=== PATIENT | female | born 1935 | race Caucasian/White ===

== ENCOUNTER → 2016-08-13 | Outpatient (CLI) | payer MEDICARE, MEDICAID ==
[~2016-08-13] MED LIST: ASPI-482 PO; CRESTOR5 MG PO; EXEN10PE SQ; INSU100I13 SQ; LEVO88TA4 PO; NEBI5TAB2 PO; NIFE60TA16 PO
--- NOTE | 2016-08-13 14:18 | RAD ---
Indication abnormal liver function tests. Axial images through the abdomen and pelvis were obtained. The examination is limited. No IV or gastrointestinal contrast was administered. No previous CT imaging of the abdomen or pelvis is available. The lung bases are unremarkable. The liver and spleen appear unremarkable. The gallbladder appears grossly normal. No pancreatic mass is seen. There are no inflammatory changes surrounding the pancreas. There are few mesenteric lymph nodes seen in the upper abdomen. These are probably incidental. Definite pathologic central or retroperitoneal adenopathy is not seen. The adrenal glands appear normal. There are bilateral renal cysts. An acute finding in the abdomen is not apparent. No acute or significant finding is seen in the pelvis. There are degenerative changes seen throughout the lumbar spine. IMPRESSION: No acute or significant finding seen in the abdomen or pelvis PQRS Compliance Statement: One or more of the following individualized dose reduction techniques were utilized for this examination: 1. Automated exposure control 2. Adjustment of the mA and/or kV according to patient size 3. Use of iterative reconstruction technique
== END | disposition home or self-care (01) ==
LOC: CT 13:44
PROVIDERS: ATTEND Family Medicine
DX: R74.8 Abnormal levels of other serum enzymes (principal)
CPT/HCPCS: 74176

== ENCOUNTER 2016-10-13 19:36 | Emergency (ER) | payer MEDICARE, MEDICAID ==
[~2016-10-13] VITALS: Ht 157.5 cm; Wt 78.5 kg
[~2016-10-13 19:36] MED LIST changes: -EXEN10PE SQ; +EXEN10PE3 SQ
[2016-10-13] MEDS ORDERED: predniSONE 10 MG TABLET PO ONE (20:45)
[2016-10-13] MEDS ORDERED: diphenhydrAMINE 50 MG/ML VIAL IM ONE (20:45)
[2016-10-13 20:51] VITALS: BP 166/82
[2016-10-13 21:12] LABS: BASO # 0.1 x10^3/uL (0.0-0.2); BASO % 1 % (0-3); EOS # 0.8 x10^3/uL (0.0-0.7); EOS % 8 % (0-3); HEMATOCRIT 37.5 % (36.0-47.0); HEMOGLOBIN 12.9 g/dL (12.0-15.5); LYMPH # 1.7 x10^3/uL (1.0-4.8); LYMPH % 18 % (24-48); MEAN CORPUSCULAR HEMOGLOBIN 29 pg (25-35); MEAN CORPUSCULAR HGB CONC 34 g/dL (31-37); MEAN CORPUSCULAR VOLUME 84 fL (79-100); MONO # 0.8 x10^3/uL (0.0-1.1); MONO % 9 % (0-9); NEUT # 6.1 x10^3uL (1.8-7.7); NEUT % 65 % (31-73); PLATELET COUNT 175 x10^3/uL (140-400); RED BLOOD COUNT 4.46 x10^6/uL (3.50-5.40); RED CELL DISTRIBUTION WIDTH 14.6 % (11.5-14.5); WHITE BLOOD COUNT 9.5 x10^3/uL (4.0-11.0)
[2016-10-13 21:17] LABS: GFR 23.9; POTASSIUM 3.4 mmol/L (3.5-5.1)
[2016-10-13] MEDS ORDERED: PRED50TA PO (21:53)
--- NOTE | 2016-10-13 21:53 | PHYS DOC ---
Past History Past Medical History: Constipation, Diabetes, Hypertension, Renal Disease Past Surgical History: Tubal ligation, Other Smoking: Non-smoker Alcohol Use: Occasionally Drug Use: None Adult General Chief Complaint Chief Complaint: ITCHING HPI HPI Patient is a 80 year old female who presents with rash & itching. The patient reports 12 day history of symptoms which began after undergoing radiofrequency ablation. She denies any new medications given at that time. She denies any new exposures to soaps, lotions, detergents, no new medications or foods. She denies face/tongue/lip swelling. She denies shortness of breath, vomiting, diarrhea. She took PO benadryl today without relief of symptoms. Review of Systems Review of Systems Constitutional: Denies fever or chills HENT: Denies nasal congestion or sore throat Respiratory: Denies cough or shortness of breath Cardiovascular: Denies chest pain GI: Denies abdominal pain, nausea, vomiting, or diarrhea Musculoskeletal: Denies back pain or joint pain Integument:Reports itching & rash. Neurologic: Denies headache Allergies Allergies Allergies Coded Allergies Type Severity Reaction Last Updated Verified codeine Allergy Intermediate nausea and vomiting 11/12/13 Yes Physical Exam Physical Exam Constitutional: obese, no acute distress, non-toxic appearance. HENT: Normocephalic, atraumatic, bilateral external ears normal, oropharynx moist, nose normal. no tongue/lip swelling, airway patent. Eyes: conjunctiva normal, no discharge. Neck: supple, no stridor. Cardiovascular: RRR, no murmurs, no edema. Lungs & Thorax: LCTAB, no wheezing, no respiratory distress. Abdomen: soft, nontender, nondistended. Skin: scattered erythematous macular rash to extremities & torso, numerous excoriations, no vesicles or urticaria, no cellulitis Back: No tenderness. Extremities: No tenderness, no edema. Neurologic: Alert and oriented X 3 Psychologic: Affect normal, judgement normal, mood normal. Current Patient Data Vital Signs Vital Signs Date Time Temp Pulse Resp B/P (MAP) Pulse Ox O2 Delivery O2 Flow Rate FiO2 10/13/16 20:51 98.0 88 16 98 Lab Results Laboratory Tests Test 10/13/16 20:59 White Blood Count 9.5 x10^3/uL (4.0-11.0) Red Blood Count 4.46 x10^6/uL (3.50-5.40) Hemoglobin 12.9 g/dL (12.0-15.5) Hematocrit 37.5 % (36.0-47.0) Mean Corpuscular Volume 84 fL (79-100) Mean Corpuscular Hemoglobin 29 pg (25-35) Mean Corpuscular Hemoglobin Concent 34 g/dL (31-37) Red Cell Distribution Width 14.6 % (11.5-14.5) H Platelet Count 175 x10^3/uL (140-400) Neutrophils (%) (Auto) 65 % (31-73) Lymphocytes (%) (Auto) 18 % (24-48) L Monocytes (%) (Auto) 9 % (0-9) Eosinophils (%) (Auto) 8 % (0-3) H Basophils (%) (Auto) 1 % (0-3) Neutrophils # (Auto) 6.1 x10^3uL (1.8-7.7) Lymphocytes # (Auto) 1.7 x10^3/uL (1.0-4.8) Monocytes # (Auto) 0.8 x10^3/uL (0.0-1.1) Eosinophils # (Auto) 0.8 x10^3/uL (0.0-0.7) H Basophils # (Auto) 0.1 x10^3/uL (0.0-0.2) Sodium Level 134 mmol/L (136-145) L Potassium Level 3.4 mmol/L (3.5-5.1) L Chloride Level 98 mmol/L (98-107) Carbon Dioxide Level 27 mmol/L (21-32) Anion Gap 9 (6-14) Blood Urea Nitrogen 43 mg/dL (7-20) H Creatinine 2.0 mg/dL (0.6-1.0) H Estimated GFR (Cockcroft-Gault) 23.9 Glucose Level 253 mg/dL (70-99) H Calcium Level 9.0 mg/dL (8.5-10.1) EKG EKG [] Radiology/Procedures Radiology/Procedures [] Course & Med Decision Making Course & Med Decision Making Pertinent Labs and Imaging studies reviewed. (See chart for details) The patient presents with rash & itching. Cause is not obvious. Labs showed hyperglycemia & Cr 2.0. She received benadryl & prednisone here, symptoms improved. She was in stable condition. Recommend PO hydration, continue benadryl & gave prescription for prednisone burst. Follow up with primary care physician in 2-3 days. Come back for severe shortness of breath, face/tongue/ lip swelling, any otherwise worsening condition. Discharged home in stable condition. [] Dragon Disclaimer Dragon Disclaimer This chart was dictated in whole or in part using Voice Recognition software in a busy, high-work load, and often noisy Emergency Department environment. It may contain unintended and wholly unrecognized errors or omissions. Departure Departure: Impression: Primary Impression: Rash Disposition: HOME, SELF-CARE Condition: STABLE Patient Instructions: Rash, [id number] Additional Instructions: You were seen in the emergency department today for rash. We are not able to tell you the specific cause of the rash. Please drink fluids for mild dehydration, take Benadryl every 6 hours as needed for rash and itching, take prednisone for the next 5 days. Be aware that your blood glucose was elevated today and you may continue to have high blood sugars due to taking prednisone. Be sure to check regularly at home and take medications as prescribed. Follow- up with primary care physician within 2-3 days. Return to the emergency department for face/tongue/lip swelling, severe shortness of breath, any otherwise worsening condition. Scripts Prednisone (PREDNISONE) 50 Mg Tablet 1 TAB PO DAILY, #5 TAB Prov: MEGAN SALTER MD 10/13/16 MEGAN SALTER MD October 13, 2016 21:53
[2016-10-13] MEDS ORDERED: POTASSIUM CHLORIDE 20 MEQ/15 ML ORAL LIQUID. PO ONE (22:00)
[2016-10-13] MEDS ORDERED: POTASSIUM CHLORIDE 20 MEQ/15 ML ORAL LIQUID. ONE (22:01)
== END 2016-10-13 22:14 | disposition home or self-care (01) ==
LOC: ER 19:36
DX: R21 Rash and other nonspecific skin eruption (principal); L29.9 Pruritus, unspecified; I12.9 Hypertensive chronic kidney disease with stage 1 through stage 4 chronic kidney disease, or unspecified chronic kidney disease; E11.22 Type 2 diabetes mellitus with diabetic chronic kidney disease; N18.9 Chronic kidney disease, unspecified; Z88.6 Allergy status to analgesic agent
CPT/HCPCS: 36415; 80048; 85027; 96372; 99284; J1200; J7512

== ENCOUNTER 2016-10-20 09:25 | Emergency (ER) | payer MEDICARE, MEDICAID ==
[~2016-10-20] VITALS: Ht 157.5 cm; Wt 78.5 kg
[~2016-10-20 09:25] MED LIST changes: +PRED50TA PO
[2016-10-20] MEDS ORDERED: IV NORMAL SALINE 1,000ML 500 ML IV SCH (10:15)
--- NOTE | 2016-10-20 10:29 | RAD ---
EXAM: Chest, single view. HISTORY: With. COMPARISON: 09/04/2013. FINDINGS: A frontal view of the chest is obtained. There is no infiltrate, effusion or pneumothorax. The heart is normal in size. There is a calcified granuloma overlying the right upper lobe. There are a few additional smaller granulomas. 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 There is stable focal opacity overlying the right infrahilar region likely due to overlying osseous and pulmonary vessel shadows. IMPRESSION: No acute pulmonary finding.
--- NOTE | 2016-10-20 10:41 | PHYS DOC ---
General Chief Complaint: BLOOD SUGAR PROBLEM Stated Complaint: DIABETIC Time Seen by MD: 09:26 Source: patient, EMS Exam Limitations: no limitations Problems: History of Present Illness Initial Comments Pt is 80/F to ED via EMS for glucose issues. Pt went to bed last night feeling well, has h/o DM, awoke 0400 today feeling like her glucose was low as she felt cold/clammy/sweaty. Ate cereal/milk, called EMS who reports pt glucose 72. Pt was still feeling cold and weak, EMS aware of pt cardiac history brought pt for eval. Denies change in diet or insulin regimen (lantus hs). ED VS: afeb, 70, 11, 168/90, 98% RA No cp/sob/measured fever/n/v/d/arm or neck sx. On ED arrival pt states she's feeling much better. Pt is vague historian. Pt seen [facility] ED 5 days ago for rash which has resolved, took last prednisone yesterday. follows with Tona Dahl Timing/Duration: 4-6 hours Severity: moderate Modifying Factors: improves with eating, worse with movement, improves with rest Associated Symptoms: diaphoresis, malaise, other Allergies: Coded Allergies: codeine (Verified Allergy, Intermediate, nausea and vomiting, 11/12/13) Past Medical History Medical History: diabetes, heart disease, high cholesterol, hypertension, renal disease, other (hypothyroid, PVD, GI Bleed) Surgical History: coronary bypass surgery (5 vessel in 2004 follows with Tona Dahl), other (TL, L carotid endarterectomy, back surgery) Family History Significant Family History: no pertinent family hx Social History Smoker: non-smoker, quit greater than 1 year (1979) Alcohol: occasionally Drugs: none Review of Systems Constitutional: see HPI Respiratory: denies cough, denies shortness of breath, denies wheezing Cardiovascular: denies chest pain, denies palpitations, denies syncope Gastrointestinal: denies abdominal pain, denies diarrhea, denies nausea, denies vomiting Genitourinary: denies dysuria, frequency, denies hematuria Musculoskeletal: denies back pain, denies joint swelling, denies neck pain Psychiatric/Neurological: see HPI, denies headache Physical Exam General Appearance: WD/WN, mild distress Eyes: bilateral eye normal inspection, bilateral eye PERRL, bilateral eye EOMI Ear, Nose, Throat: hearing grossly normal, normal ENT inspection, normal pharynx Neck: non-tender, supple Respiratory: normal breath sounds, no respiratory distress Cardiovascular: normal peripheral pulses, regular rate, rhythm Gastrointestinal: non tender, soft Back: no CVA tenderness, no vertebral tenderness Extremities: non-tender, normal inspection Neurologic/Psychiatric: wellness spa manager II-XII nml as tested, no motor/sensory deficits, alert, oriented x 3 Skin: diaphoresis, pallor Orders, Labs, Meds EKG: interp by me, NSR 70 bpm, diffuse T flattening no STEMI. (computer read as afib) PATIENT: LENORA RENDON ACCOUNT: [id number] : 1935 LOCATION: ER AGE: 80 SEX: F EXAM STATUS: REG ER ORD. PHYSICIAN: GALDINO POOLE DO REASON: weak PROCEDURE: PORTABLE CHEST 1V EXAM: Chest, single view. HISTORY: With. COMPARISON: 09/04/2013. FINDINGS: A frontal view of the chest is obtained. There is no infiltrate, effusion or pneumothorax. The heart is normal in size. There is a calcified granuloma overlying the right upper lobe. There are a few additional smaller granulomas. 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 There is stable focal opacity overlying the right infrahilar region likely due to overlying osseous and pulmonary vessel shadows. IMPRESSION: No acute pulmonary finding. DICTATED AND SIGNED BY: PERCY MUNROE MD DATE: 10/20/16 1025 CC: ALESHIA RODRIGUEZ MD; GALDINO POOLE DO ~ 1139: Time in dept 2h 14 min. Labs remain pending, pt will have prolonged ED course due to lab delay. 1145: Critical labs called, trop I 0.092, K+ 2.8 (40meq PO in ED) pt webmethods consultant paged. Other labs pending. Pt denies change in symptoms. 1215: Pt discussed with Dr Thompson Cardiology data conversion analyst. Recommended admit to hospitalist [facility], NTP, recheck Trop I 2 hours and if elevated heparinize. Cardio aware of GI bleed 2013. Hospitalist service paged. 1241: Dr Florez accepts pt to cardiac bed at [facility]. IMPRESSIONS: CAD with elevated troponin Hypokalemia Departure Time of Disposition: 12:03 Disposition: 05 XFER OTHER Diagnosis: CAD with elevated Trop I, hypokalemia Condition: STABLE Additional Instructions: EMS transfer to [facility] cardiac bed Dr Florez is accepting. GALDINO POOLE DO October 20, 2016 10:41
[2016-10-20 10:48] LABS: BASO # 0.1 x10^3/uL (0.0-0.2); BASO % 1 % (0-3); EOS # 0.1 x10^3/uL (0.0-0.7); EOS % 1 % (0-3); HEMATOCRIT 43.8 % (36.0-47.0); HEMOGLOBIN 15.2 g/dL (12.0-15.5); LYMPH # 1.5 x10^3/uL (1.0-4.8); LYMPH % 12 % (24-48); MEAN CORPUSCULAR HEMOGLOBIN 29 pg (25-35); MEAN CORPUSCULAR HGB CONC 35 g/dL (31-37); MEAN CORPUSCULAR VOLUME 83 fL (79-100); MONO % 8 % (0-9); NEUT # 10.3 x10^3uL (1.8-7.7); NEUT % 79 % (31-73); PLATELET COUNT 197 x10^3/uL (140-400); RED BLOOD COUNT 5.28 x10^6/uL (3.50-5.40); RED CELL DISTRIBUTION WIDTH 14.8 % (11.5-14.5); WHITE BLOOD COUNT 12.9 x10^3/uL (4.0-11.0)
[2016-10-20 11:42] LABS: ALBUMIN 2.9 g/dL (3.4-5.0); ALBUMIN/GLOBULIN RATIO 0.7 (1.0-1.7); ALK PHOS 89 U/L (46-116); ALT (SGPT) 98 U/L (14-59); ANION GAP 10 (6-14); AST (SGOT) 71 U/L (15-37); BLOOD UREA NITROGEN 42 mg/dL (7-20); BUN/CREATININE RATIO 23 (6-20); CALCIUM 9.6 mg/dL (8.5-10.1); CARBON DIOXIDE 28 mmol/L (21-32); CHLORIDE 99 mmol/L (98-107); CREATINE KINASE 95 U/L (26-192); CREATININE 1.8 mg/dL (0.6-1.0); GFR 26.9; GLUCOSE 209 mg/dL (70-99); LIPASE 454 U/L (73-393); SODIUM 137 mmol/L (136-145); TOTAL BILIRUBIN 0.4 mg/dL (0.2-1.0); TOTAL PROTEIN 7.3 g/dL (6.4-8.2)
[2016-10-20 11:45] LABS: C REACTIVE PROTEIN < 0.5 mg/L (0-3.3); POTASSIUM 2.8 mmol/L (3.5-5.1)
[2016-10-20 11:51] LABS: % BANDS 3 % (0-9); % EOS 1 % (0-5); % LYMPHS 15 % (24-48); % MONOS 8 % (0-10); % SEGS 73 % (35-66); PLT ESTIMATE ADEQUATE (ADEQUATE)
[2016-10-20 11:53] LABS: TOXIC GRANULATION SLIGHT; TOXIC VACUOLATION SLIGHT
--- NOTE | 2016-10-20 12:08 | EKG ---
[address] [address] Test Date: 2016-10-20 Test Time: 10:58:29 Pat Name: LENORA RENDON Department: Room: Gender: F Bi Manager: : 1935 Requested By: GALDINO POOLE Order Number: [id number] Reading MD: Measurements Intervals [place] Rate: 70 P: [place]: QRS: -20 QRSD: 100 T: 64 QT: 420 QTc: 457 Interpretive Statements ATRIAL FIBRILLATION LEFTWARD AXIS NON SPECIFIC ST DEPRESSION RI6.01 Unconfirmed report No previous ECG available for comparison
[2016-10-20] MEDS ORDERED: POTASSIUM CHLORIDE 20 MEQ/15 ML ORAL LIQUID. PO ONE (12:15)
[2016-10-20 12:18] LABS: BILIRUBIN,URINE NEG (NEG); CLARITY,URINE CLEAR; COLOR,URINE YELLOW; GLUCOSE,URINE NEG (NEG)
[2016-10-20 12:19] LABS: BACTERIA,URINE FEW /HPF (0-FEW); GRANULAR CASTS,URINE OCC /HPF; HYALINE CASTS, URINE OCC /HPF; NITRITE,URINE NEG (NEG); SQUAMOUS EPITHELIAL CELL,UR FEW /LPF; UROBILINOGEN,URINE 0.2 mg/dL (0.2 mg/dL)
--- NOTE | 2016-10-20 12:22 | ACF ---
Admission Criteria Forms HYPONATREMIA; HYPERNATREMIA; HYPOKALEMIA; HYPERKALEMIA; HYPOCALCEMIA; HYPERCALCEMIA Clinical Indications for Inpatient Care (Place 'X' for any and all applicable criteria): Ongoing inpatient care may be indicated for ANY ONE of the following [G](1)(2)(3 )(5): [ ]I. Hyponatremia with ANY ONE of the following: [ ]a) Sodium less than 130 mEq/L (mmol/L) (new) (6)(22) [ ]b) Sodium less than 135 mEq/L (mmol/L) with ANY ONE of the following: [ ]i) Severe medical etiology requiring inpatient management (eg, heart failure, hypovolemia) [ ]ii) Altered mental status [ ]iii) Seizures [ ]II. Hypernatremia with ANY ONE of the following: [ ]a) Sodium greater than 155 mEq/L (mmol/L) [ ]b) Sodium greater than 150 mEq/L (mmol/L) with ANY ONE of the following: [ ] i) Altered mental status [ ]ii) Seizures [ ]iii) Severe medical etiology (eg, hypovolemia, diabetes insipidus) [ ]iv) Severe weakness [ ]v) Severe medical etiology (eg, hemolysis, infection, drug overdose) [X]III. Hypokalemia with ANY ONE of the following: [ ]a) Potassium less than 2.5 mEq/L (mmol/L) despite outpatient and emergency treatment [X]b) Potassium less than 3.0 mEq/L (mmol/L) with ANY ONE of the following: [ ]i) Weakness [ ]ii) Cardiac abnormality (eg, arrhythmia, conduction disturbance) [ ]iii) Cardiac ischemia [ ]iv) Ileus [ ]v) Ongoing medical cause requiring inpatient management. ( e.g., acute renal wasting, SIADH) [X]vi) Other severe symptoms [ ] IV. Hyperkalemia with ANY ONE of the following: [ ]a) Potassium greater than 6.5 mEq/L (mmol/L) [ ]b) Potassium greater than 5 mEq/L (mmol/L) with ANY ONE of the following: [ ]i) Severe ECG findings [H] [ ]ii) Acute worsening of renal failure (creatinine greater than 2.5 mg/dL (221 micromoles/L) or significant elevation for age and size) [ ] V. Hypocalcemia with ANY ONE of the following: [ ]a) Calcium less than 7 mg/dL (1.75 mmol/L) despite outpatient and emergency treatment(19) [ ]b) Calcium less than 8 mg/dL (2 mmol/L) with significant symptoms or findings; examples include: [ ]i) Cardiac abnormality (eg, arrhythmia or conduction disturbance) [ ]ii) Altered mental status [ ]iii) Seizures [ ]iv) Breathing difficulty [ ]v) Muscle spasms [ ]. Hypercalcemia with ANY ONE of the following: [ ]a) Calcium greater than 14 mg/dL (3.5 mmol/L) [ ]b) Calcium greater than 12 mg/dL (3 mmol/L) with ANY ONE of the following: [ ]i) Significant dehydration or hypovolemia as indicated by ANY ONE of the following(2): [ ]1. Clinically significant dehydration as indicated by ANY ONE of the following: [ ]A. Acute loss of weight from baseline (5% of body weight in adults, 9% in pediatric patients) [ ]B. Hemodynamic instability [ ]C. Acute renal failure [ ]D. Serum sodium greater than 150 mEq/L (mmol/L) [ ]2) Dehydration that is persistent indicated by ALL of the following: [ ]A. Oral rehydration therapy not tolerated or insufficient to adequately correct dehydration [ ]B. Appropriate intravenous treatment (eg, fluids ) does not readily correct dehydration ie, after 12 to 24 hours of treatment) [ ]ii) Significant symptoms or findings; examples include: [ ]1) Altered mental status [ ]2) Cardiac abnormality (eg, arrhythmia, conduction disturbance) [ ]3) Cardiac abnormality (eg, arrhythmia, conduction disturbance) The original [facility] content created by [email or web address] has been revised. The portions of the content which have been revised are identified through the use of italic text or in bold, and [email or web address] has neither reviewed nor approved the modified material. All other unmodified content is copyright [email or web address] Please see references footnoted in the original [facility] edition 2016 Admission Criteria Met?: Yes RAGHAV YORK October 20, 2016 12:22
[2016-10-20] MEDS ORDERED: ACETAMINOPHEN 325 MG TABLET PO ONE (12:45)
[2016-10-20] MEDS ORDERED: NITROGLYCERIN OINT 1 GM PACKET. TP ONE (12:45)
[2016-10-20 14:00] VITALS: BP 154/74
== END 2016-10-20 14:00 | disposition short-term general hospital (02) ==
LOC: ER 09:25
DX: I25.10 Atherosclerotic heart disease of native coronary artery without angina pectoris (principal); E87.6 Hypokalemia; E03.9 Hypothyroidism, unspecified; E78.00 Pure hypercholesterolemia, unspecified; I73.9 Peripheral vascular disease, unspecified; I13.10 Hypertensive heart and chronic kidney disease without heart failure, with stage 1 through stage 4 chronic kidney disease, or unspecified chronic kidney disease; E11.22 Type 2 diabetes mellitus with diabetic chronic kidney disease; R79.89 Other specified abnormal findings of blood chemistry; Z87.19 Personal history of other diseases of the digestive system; Z87.891 Personal history of nicotine dependence; Z95.1 Presence of aortocoronary bypass graft; Z88.6 Allergy status to analgesic agent
CPT/HCPCS: 36415; 71010; 80053; 81001; 82550; 83690; 83880; 84484; 85007; 85027; 85379; 86140; 87086; 93005; 96360; 96361; 99285-25; J7030

== ENCOUNTER 2016-11-26 06:44 | Emergency (ER) | payer MEDICARE, MEDICAID ==
[~2016-11-26] VITALS: Ht 160 cm; Wt 78.5 kg
[2016-11-26 07:42] LABS: BASO % 1 % (0-3); EOS # 0.2 x10^3/uL (0.0-0.7); EOS % 3 % (0-3); HEMATOCRIT 36.2 % (36.0-47.0); HEMOGLOBIN 12.2 g/dL (12.0-15.5); LYMPH # 1.5 x10^3/uL (1.0-4.8); LYMPH % 24 % (24-48); MEAN CORPUSCULAR HEMOGLOBIN 29 pg (25-35); MEAN CORPUSCULAR HGB CONC 34 g/dL (31-37); MEAN CORPUSCULAR VOLUME 87 fL (79-100); MONO # 0.6 x10^3/uL (0.0-1.1); MONO % 9 % (0-9); NEUT # 3.9 x10^3uL (1.8-7.7); NEUT % 63 % (31-73); PLATELET COUNT 161 x10^3/uL (140-400); RED BLOOD COUNT 4.15 x10^6/uL (3.50-5.40); RED CELL DISTRIBUTION WIDTH 14.8 % (11.5-14.5); WHITE BLOOD COUNT 6.2 x10^3/uL (4.0-11.0)
--- NOTE | 2016-11-26 07:44 | PHYS DOC ---
Past History Past Medical History: CAD, Diabetes, High Cholesterol, Hypertension Past Surgical History: Coronary Bypass Surgery, Other Smoking: Non-smoker Alcohol Use: None Drug Use: None Adult General Chief Complaint Chief Complaint: BACK PAIN OR INJURY HPI HPI Patient is a 80 year old female who presents with back pain. The patient reports several month history of progressively worsening right lower back pain radiating to right leg. She states she did have a fall about a month ago but already had pain before the fall. She states pain is aching/stabbing to lower spine, right lower back & flank, radiating to buttock & hip & down her leg. Worse with movement. She denies fevers/chills, nausea/vomiting, abdominal pain , diarrhea/constipation, hematochezia/melena, dysuria/hematuria, lower extremity numbness/weakness, saddle anesthesia, bowel/bladder incontinence/ retention. She has chronic LLE swelling s/p CABG. She took tylenol yesterday without relief of pain. She doesn't like to take medication. She has previous back surgery in 1984 for herniated disc. She has not seen her physician, Dr. Rodriguez, for this problem previously. Review of Systems Review of Systems Constitutional: Denies fever or chills Eyes: Denies change in visual acuity HENT: Denies nasal congestion or sore throat Respiratory: Denies cough or shortness of breath Cardiovascular: Denies chest pain or edema GI: Denies abdominal pain, nausea, vomiting, bloody stools or diarrhea : Denies dysuria or hematuria Musculoskeletal: Reports back pain, denies joint pain Integument: Denies rash or skin lesions Neurologic: Denies headache, focal weakness or sensory changes Allergies Allergies Allergies Coded Allergies Type Severity Reaction Last Updated Verified codeine Allergy Intermediate nausea and vomiting 11/12/13 Yes Physical Exam Physical Exam Constitutional: Well developed, well nourished, no acute distress, non-toxic appearance. HENT: Normocephalic, atraumatic, bilateral external ears normal, oropharynx moist, nose normal. Eyes: conjunctiva normal, no discharge. Neck: supple, no stridor. Cardiovascular: RRR, no murmurs, LLE edema as below. Lungs & Thorax: LCTAB, no wheezing, no respiratory distress. Abdomen: soft, nontender, nondistended. no masses or pulsatile masses. Skin: Warm, dry, no erythema, no rash. Back: generalized lumbar spine tenderness without step offs, right flank & right lower back tenderness, right buttock tenderness. Extremities: symmetric strength/sensation to LE, distal pulses palpable, 3+ pitting edema to LLE. Neurologic: Alert and oriented X 3, no focal deficits noted. Psychologic: Affect normal, judgement normal, mood normal. Current Patient Data Vital Signs Vital Signs Date Time Temp Pulse Resp B/P (MAP) Pulse Ox O2 Delivery O2 Flow Rate FiO2 11/26/16 07:00 97.4 74 18 99 Room Air EKG EKG [] Radiology/Procedures Radiology/Procedures PROCEDURE: CT LUMBAR SPINE WO CONTRAST CT of the lumbar spine without contrast, 11/26/2016: History: Back and right flank pain Noncontrast scans were obtained with multiplanar reconstructions produced. There is a mild left convexity lumbar scoliosis. The lumbar vertebral heights are well-maintained. There are moderate scattered spurs and anterior disc bulges. There is considerable disc space narrowing at L2-3 and L5-S1. A small hemangioma is noted in the T12 vertebral body. At L1-2 there is moderate posterior disc bulging. There is mild marginal spurring. There is mild posterior ligamentous thickening. The combination of findings is causing mild central spinal stenosis with the thecal sac measuring 7 mm in AP diameter at the midline. There is moderate inferior foraminal narrowing bilaterally. At L2-3 there are moderate degenerative changes involving the facet joints with posterior ligamentous thickening. There is a slight associated reverse spondylolisthesis. There is moderate broad-based posterior disc bulging with moderate posterior spurring, worse on the right. The combination of findings is causing mild central spinal stenosis in a triangular configuration. There is moderate inferior foraminal narrowing, worse on the right. At L3-4 there is a rotatory component to the scoliosis. There are moderate degenerative changes involving the facet joints with posterior ligamentous thickening. There is moderate broad-based posterior disc protrusion, worst on the right. There is moderate associated central spinal stenosis as well as moderate foraminal encroachment bilaterally. At L4-5 there are extensive degenerative changes involving the facet joints with considerable posterior ligamentous thickening. There is moderate broad-based posterior disc bulging. The combination of findings is causing moderate central spinal stenosis, moderate left foraminal encroachment and mild right foraminal narrowing. At L5-S1 there are moderate degenerative changes involving the facet joints with facet spurring more so on the left. This is causing moderate left foraminal stenosis. The right neural foramen is well maintained. No significant posterior disc bulge or protrusion is seen. The central spinal canal is well-preserved. IMPRESSION: 1. Moderately severe multilevel degenerative changes as described above. 2. Mild rotatory lumbar scoliosis. 3. Moderate central spinal stenosis at L3-4 and L4-5 and to a lesser degree at L2-3 and L1-2. PQRS Compliance Statement: One or more of the following individualized dose reduction techniques were utilized for this examination: 1. Automated exposure control 2. Adjustment of the mA and/or kV according to patient size 3. Use of iterative reconstruction technique DICTATED AND SIGNED BY: YONI BETTENCOURT MD DATE: 11/26/16 0828 PROCEDURE: CT ABDOMEN PELVIS WO CONTRAST CT of the abdomen and pelvis without contrast, 11/26/2016: History: Abdominal pain, right flank pain Noncontrast scans were obtained as requested. Comparison is made to a study from 08/13/2016. No urinary tract calculi are identified. The renal collecting systems and ureters are not dilated. There is a 3 cm cyst in the upper pole the left kidney. A smaller cyst is present posteriorly in the right kidney. The urinary bladder is unremarkable. There are scattered calcified granulomata in the liver and spleen. There is slight irregularity of the hepatic contour raising the possibility of cirrhosis. No hepatic mass is seen. There are small radiopacities within the dependent aspect of the gallbladder suggesting the presence of calculi. No pericholecystic edema is seen. No pancreatic abnormality is detected. The spleen is at the upper limits of normal in size measuring 14 cm in craniocaudad extent. There is considerable calcific plaquing of the abdominal aorta and its branches including the renal artery origins. Coronary artery calcifications are noted. There is no evidence of abdominal aortic aneurysm. No abdominal or pelvic adenopathy is seen. Several small colonic diverticula are noted. No paracolonic inflammatory process is seen. There is a moderate amount of stool throughout the colon. The appendix is visualized and measures 8 mm. No periappendiceal inflammation is seen. No free fluid or free air is evident in the abdomen or pelvis. IMPRESSION: 1. 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 2. Borderline splenomegaly. 3. Probable cholelithiasis. 4. Mild colonic diverticulosis. 5. Bilateral renal cysts. PQRS Compliance Statement: One or more of the following individualized dose reduction techniques were utilized for this examination: 1. Automated exposure control 2. Adjustment of the mA and/or kV according to patient size 3. Use of iterative reconstruction technique DICTATED AND SIGNED BY: YONI BETTENCOURT MD DATE: 11/26/16 0814 [] Course & Med Decision Making Course & Med Decision Making Pertinent Labs and Imaging studies reviewed. (See chart for details) The patient presented with back pain. No focal deficits, no red flag symptoms. However previous history of back surgery and advanced age. Obtained CT of the abdomen and pelvis as well as lumbar spine Reconstruction. Found to have spinal stenosis and degenerative disease and scoliosis in addition to chronic findings within the abdomen. She declined pain medication in the emergency department. Potassium was replaced orally. Upon further discussion with the patient and her family, she has actually had radio frequency ablation procedure for back pain and his received injections. I recommended that she follow up with the specialist was arty been treating her, or if her primary care physician, ideally within the next week. Gave Hoolehua to take as needed for severe pain, and given sedation precautions. Return to the emergency department for symptoms of cauda equina syndrome or any otherwise worsening condition. Discharged home in stable condition. Dragon Disclaimer Dragon Disclaimer This chart was dictated in whole or in part using Voice Recognition software in a busy, high-work load, and often noisy Emergency Department environment. It may contain unintended and wholly unrecognized errors or omissions. Departure Departure: Impression: Primary Impression: Back pain Additional Impressions: Spinal stenosis Degenerative arthritis of spine Hypokalemia Disposition: 01 HOME, SELF-CARE Condition: STABLE Referrals: ALESHIA RODRIGUEZ MD (PCP) Patient Instructions: Back Pain, Adult, [id number] Additional Instructions: You were seen in the emergency department today for back pain. You have chronic problems including spinal stenosis and arthritis. If pain is severe take smallest dose of Hoolehua required control pain. This medication can make you drowsy and more prone to fall. Don't drink alcohol or drive after taking this medication. Follow-up with Dr. Rodriguez this week for discussion of ongoing pain management & treatment options. Come back for severe abdominal pain, numbness or weakness in arms/legs, loss of control of bowels/bladder, numbness in groin, any otherwise worsening condition. Scripts Hydrocodone Bit/Acetaminophen (NORCO 5-325 TABLET) 1 Each Tablet 0.5-1 TAB PO Q4-6HRS Y for SEVERE PAIN, #6 TAB Prov: MEGAN SALTER MD 11/26/16 Problem Qualifiers MEGAN SALTER MD Nov 26, 2016 07:44
[2016-11-26 07:50] LABS: ALBUMIN/GLOBULIN RATIO 0.7 (1.0-1.7); CALCIUM 9.8 mg/dL (8.5-10.1); CREATININE 1.5 mg/dL (0.6-1.0); GFR 33.2; POTASSIUM 3.2 mmol/L (3.5-5.1); TOTAL BILIRUBIN 0.4 mg/dL (0.2-1.0); TOTAL PROTEIN 7.3 g/dL (6.4-8.2)
[2016-11-26 08:10] LABS: BILIRUBIN,URINE NEG (NEG); COLOR,URINE YELLOW; GLUCOSE,URINE NEG (NEG)
[2016-11-26 08:11] LABS: BACTERIA,URINE FEW /HPF (0-FEW); NITRITE,URINE NEG (NEG); UROBILINOGEN,URINE 0.2 mg/dL (0.2 mg/dL)
[2016-11-26 08:12] LABS: CLARITY,URINE HAZY; HYALINE CASTS, URINE OCC /HPF; SQUAMOUS EPITHELIAL CELL,UR OCC /LPF
--- NOTE | 2016-11-26 08:30 | RAD ---
CT of the abdomen and pelvis without contrast, 11/26/2016: History: Abdominal pain, right flank pain Noncontrast scans were obtained as requested. Comparison is made to a study from 08/13/2016. No urinary tract calculi are identified. The renal collecting systems and ureters are not dilated. There is a 3 cm cyst in the upper pole the left kidney. A smaller cyst is present posteriorly in the right kidney. The urinary bladder is unremarkable. There are scattered calcified granulomata in the liver and spleen. There is slight irregularity of the hepatic contour raising the possibility of cirrhosis. No hepatic mass is seen. There are small radiopacities within the dependent aspect of the gallbladder suggesting the presence of calculi. No pericholecystic edema is seen. No pancreatic abnormality is detected. The spleen is at the upper limits of normal in size measuring 14 cm in craniocaudad extent. There is considerable calcific plaquing of the abdominal aorta and its branches including the renal artery origins. Coronary artery calcifications are noted. There is no evidence of abdominal aortic aneurysm. No abdominal or pelvic adenopathy is seen. Several small colonic diverticula are noted. No paracolonic inflammatory process is seen. There is a moderate amount of stool throughout the colon. The appendix is visualized and measures 8 mm. No periappendiceal inflammation is seen. No free fluid or free air is evident in the abdomen or pelvis. IMPRESSION: 1. 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 2. Borderline splenomegaly. 3. Probable cholelithiasis. 4. Mild colonic diverticulosis. 5. Bilateral renal cysts. PQRS Compliance Statement: One or more of the following individualized dose reduction techniques were utilized for this examination: 1. Automated exposure control 2. Adjustment of the mA and/or kV according to patient size 3. Use of iterative reconstruction technique
--- NOTE | 2016-11-26 08:44 | RAD ---
CT of the lumbar spine without contrast, 11/26/2016: History: Back and right flank pain Noncontrast scans were obtained with multiplanar reconstructions produced. There is a mild left convexity lumbar scoliosis. The lumbar vertebral heights are well-maintained. There are moderate scattered spurs and anterior disc bulges. There is considerable disc space narrowing at L2-3 and L5-S1. A small hemangioma is noted in the T12 vertebral body. At L1-2 there is moderate posterior disc bulging. There is mild marginal spurring. There is mild posterior ligamentous thickening. The combination of findings is causing mild central spinal stenosis with the thecal sac measuring 7 mm in AP diameter at the midline. There is moderate inferior foraminal narrowing bilaterally. At L2-3 there are moderate degenerative changes involving the facet joints with posterior ligamentous thickening. There is a slight associated reverse spondylolisthesis. There is moderate broad-based posterior disc bulging with moderate posterior spurring, worse on the right. The combination of findings is causing mild central spinal stenosis in a triangular configuration. There is moderate inferior foraminal narrowing, worse on the right. At L3-4 there is a rotatory component to the scoliosis. There are moderate degenerative changes involving the facet joints with posterior ligamentous thickening. There is moderate broad-based posterior disc protrusion, worst on the right. There is moderate associated central spinal stenosis as well as moderate foraminal encroachment bilaterally. At L4-5 there are extensive degenerative changes involving the facet joints with considerable posterior ligamentous thickening. There is moderate broad-based posterior disc bulging. The combination of findings is causing moderate central spinal stenosis, moderate left foraminal encroachment and mild right foraminal narrowing. At L5-S1 there are moderate degenerative changes involving the facet joints with facet spurring more so on the left. This is causing moderate left foraminal stenosis. The right neural foramen is well maintained. No significant posterior disc bulge or protrusion is seen. The central spinal canal is well-preserved. IMPRESSION: 1. Moderately severe multilevel degenerative changes as described above. 2. Mild rotatory lumbar scoliosis. 3. Moderate central spinal stenosis at L3-4 and L4-5 and to a lesser degree at L2-3 and L1-2. PQRS Compliance Statement: One or more of the following individualized dose reduction techniques were utilized for this examination: 1. Automated exposure control 2. Adjustment of the mA and/or kV according to patient size 3. Use of iterative reconstruction technique
[2016-11-26] MEDS ORDERED: POTASSIUM CHLORIDE 20 MEQ/15 ML ORAL LIQUID. PO ONE (09:00)
[2016-11-26] MEDS ORDERED: HYDR-971 PO (09:12)
[2016-11-26 09:25] VITALS: BP 157/78
== END 2016-11-26 09:25 | disposition home or self-care (01) ==
LOC: ER 06:44
DX: M54.5 Low back pain (principal); M48.06 Spinal stenosis, lumbar region; M47.9 Spondylosis, unspecified; E87.6 Hypokalemia; E11.9 Type 2 diabetes mellitus without complications; E78.00 Pure hypercholesterolemia, unspecified; I10 Essential (primary) hypertension; Z95.1 Presence of aortocoronary bypass graft; Z88.5 Allergy status to narcotic agent
CPT/HCPCS: 36415; 72131; 74176; 80053; 81001; 85027; 99285-25

== ENCOUNTER → 2016-12-13 | Outpatient (CLI) | payer MEDICARE, MEDICAID ==
[2016-11-26 09:25] VITALS: BP 157/78
[~2016-12-13] MED LIST changes: +HYDR-971 PO
--- NOTE | 2016-12-13 15:12 | RAD ---
EXAM: ABDOMINAL ULTRASOUND. HISTORY: Cirrhosis, cholelithiasis. COMPARISON: 11/26/2016. FINDINGS: Sonographic evaluation of the abdomen was performed. There is mild hepatic surface nodularity consistent with cirrhotic change. There are no focal lesions. The umbilical vein is recanalized. The spleen measures 13.7 cm. Echogenic material layers dependently in the gallbladder but does not clearly shadow. This suggests sludge. There is no gallbladder wall thickening or pericholecystic fluid. There is no sonographic Orellana sign. The common duct measures 4 mm. The visualized portions of the head and body of the pancreas reveal no abnormality. The right kidney measures 10.5 cm. Cortical thickness and echogenicity are preserved. There is no hydronephrosis. The renal cyst noted on CT is not visualized sonographically. The left kidney measures 11.7 cm. Cortical thickness and echogenicity are preserved. There is no hydronephrosis. A cyst in the left lower pole measures 3.1 x 3.0 cm and appears simple and benign The visualized portions of the abdominal aorta and inferior vena cava are grossly patent and normal in caliber. IMPRESSION: 1. Hepatic surface nodularity is consistent with cirrhotic change. 2. Findings consistent with portal hypertension including recanalization of the umbilical vein and mild splenomegaly. 3. Gallbladder sludge without clear cholelithiasis.
== END | disposition home or self-care (01) ==
LOC: US 08:46
PROVIDERS: ATTEND Family Medicine
DX: K74.60 Unspecified cirrhosis of liver (principal); K80.20 Calculus of gallbladder without cholecystitis without obstruction; K76.6 Portal hypertension; R93.2 Abnormal findings on diagnostic imaging of liver and biliary tract
CPT/HCPCS: 76700

== ENCOUNTER → 2017-06-24 | Outpatient (CLI) | payer MEDICARE, MEDICAID ==
--- NOTE | 2017-06-24 16:03 | RAD ---
Exam : Carotid Duplex with Grayscale Ultrasound and Spectral and Color Doppler Analysis: Clinical Indications: Carotid stenosis. Comparison study: Duplex ultrasound of the bilateral carotid arteries April 02, 2009. PQRS Compliance Statement - Stenosis calculations for CT, MR and conventional angiography are based upon measurement of the distal ICA diameter in accordance with the NASCET methodology. Stenosis calculations for carotid ultrasound studies are derived from validated velocity criteria which are known to correlate with the NASCET methodology. Findings: The common, internal and external carotid arteries were examined by grayscale, color and spectral Doppler ultrasound. There is diffuse atherosclerotic vascular disease. This is most prominent at the carotid bulbs. There is significant visual narrowing on color Doppler imaging extending from the right carotid bulb into the proximal internal carotid artery. No definitive focal increased velocity is identified. Similar more mild visual changes of the left carotid bulb are seen. Flow in both vertebral arteries was antegrade and normal. The following are the velocities and ratios in the carotid arteries on both sides: RIGHT ICA PV: 122cm/sec RIGHT CCA PV: 74cm/sec RIGHT ICA ED: 120cm/sec RIGHT IC/CCPV: 1.7 RIGHT VERTEBRAL: antegrade flow RIGHT % STENOSIS: [Less than 50%] LEFT ICA PV: 106cm/sec LEFT CCA PV: 103cm/sec LEFT ICA ED: 24cm/sec LEFT IC/CCPV: 1.0 LEFT VERTEBRAL: antegrade flow LEFT % STENOSIS: [Less than 50%] <50% ICA Stenosis: PSV < 125cm/s (EDV < 40cm/s; SVR < 2.0) 50-69% ICA Stenosis: PSV < 125-229cm/s (EDV 40-99cm/s; SVR 2.0-3.9) >70% ICA Stenosis: PSV > 230cm/s (EDV >100cm/s; SVR >4.0) Impression: Atherosclerotic vascular calcification involving the bilateral carotid bulbs right greater than left. Some visual narrowing is present in the proximal internal carotid artery however by ultrasound velocity criteria, there is less than 50% stenosis of bilateral internal carotid arteries.
== END | disposition home or self-care (01) ==
LOC: US 14:32
PROVIDERS: ATTEND Family Medicine
DX: I65.23 Occlusion and stenosis of bilateral carotid arteries (principal); Z87.891 Personal history of nicotine dependence
CPT/HCPCS: 93880

== ENCOUNTER 2017-10-24 03:29 | Inpatient (IN) | payer MEDICARE, MEDICAID ==
[~2017-10-24] VITALS: Ht 160 cm; Wt 81.3 kg
[2017-10-24] MEDS ORDERED: MORPHINE SULFATE 4 MG/ML DISP.SYRIN. IV/SQ PRN (03:45)
[2017-10-24] MEDS ORDERED: NITROGLYCERIN SUBLINGUAL 0.4 MG BOTTLE OF 25. SL PRN ×2 (03:45→04:45)
--- NOTE | 2017-10-24 03:50 | ED.ADGEN ---
Past History Past Medical History: CAD, Diabetes, High Cholesterol, Hypertension Past Surgical History: Coronary Bypass Surgery, Other Smoking: Non-smoker Alcohol Use: None Drug Use: None Adult General HPI HPI Patient is a 81 year old female who presents with chest pain. Patient awoke from sleep approximately 1 hour earlier was sternal chest pain. Pain is nonradiating. Pain does not cause her to feel short of breath although she is mildly tachypneic. She does not have diaphoresis or palpitations. She was well prior to onset of symptoms. No recent illness. No recent worsening orthopnea or dyspnea with exertion. She felt that the pain was likely gas so she took some antacid medication but this did not relieve her symptoms. She has not had a cough or fever. In route to the hospital, the patient was given 1 nitroglycerin and a full strength baby aspirin. She feels that the nitroglycerin did possibly improve her pain symptoms mildly. She does have a known history of 5 bypass open -heart surgery which was performed [facility] in 2004. Review of Systems Review of Systems Constitutional: Denies fever or chills Eyes: Denies change in vision HENT: Denies nasal congestion or sore throat Respiratory: Denies cough or shortness of breath Cardiovascular: No additional information not addressed in HPI GI: Denies abdominal pain, nausea : Denies dysuria or hematuria Musculoskeletal: Denies back pain Integument: Denies rash or skin lesions Neurologic: Denies headache, focal weakness Endocrine: Denies polyuria or polydipsia All other systems were reviewed and found to be within normal limits, except as documented in this note. Current Medications Current Medications Current Medications Medications (Trade) Dose Ordered Sig/[facility] Start Time Stop Time Status Last Admin Dose Admin Acetaminophen (Tylenol) 650 mg PRN Q4HRS PRN 10/24/17 04:45 10/25/17 04:44 Heparin Sodium (Porcine) (Heparin Sodium) 4,000 unit 1X ONCE 10/24/17 05:00 10/24/17 05:01 Heparin Sodium/ Dextrose 500 ml @ 0 mls/hr CONT PRN 10/24/17 04:45 Lorazepam (Ativan) 0.25 mg PRN Q8HRS PRN 10/24/17 04:45 Morphine Sulfate (Morphine 4mg Syringe) 4 mg PRN Q2HR PRN 10/24/17 04:45 10/25/17 04:44 Nitroglycerin (Nitrostat) 0.4 mg PRN Q5MIN PRN 10/24/17 04:45 10/25/17 04:44 Ondansetron HCl (Zofran) 4 mg PRN Q4HRS PRN 10/24/17 04:45 10/25/17 04:44 Allergies Allergies Allergies Coded Allergies Type Severity Reaction Last Updated Verified codeine Allergy Intermediate nausea and vomiting 11/12/13 Yes Physical Exam Physical Exam Constitutional: Well developed, well nourished, no acute distress, non-toxic appearance. HENT: Normocephalic, atraumatic, bilateral external ears normal, oropharynx moist Eyes: PERRLA, EOMI, conjunctiva normal Neck: Normal range of motion, no tenderness, no JVD, no carotid bruits Cardiovascular:Heart rate regular rhythm. 2/6 systolic murmur, harsh, heard best at the LSB, not heard at carotids Lungs & Thorax: Bilateral breath sounds clear to auscultation Abdomen: Bowel sounds normal, soft, no tenderness, no masses Skin: Warm, dry, no erythema, no rash Back: No tenderness, no CVA tenderness Extremities: No tenderness, trace edema bilateral LE's which the patient states is baseline Neurologic: Alert and oriented X 3, normal motor function, Psychologic: patient is anxious and dramatic in presentation Current Patient Data Vital Signs Vital Signs Date Time Temp Pulse Resp B/P (MAP) Pulse Ox O2 Delivery O2 Flow Rate FiO2 10/24/17 04:20 64 18 142/55 (84) 93 Room Air 10/24/17 03:29 97.6 Lab Results Laboratory Tests Test 10/24/17 03:40 White Blood Count 8.7 x10^3/uL (4.0-11.0) Red Blood Count 4.02 x10^6/uL (3.50-5.40) Hemoglobin 12.2 g/dL (12.0-15.5) Hematocrit 35.1 % (36.0-47.0) L Mean Corpuscular Volume 87 fL (79-100) Mean Corpuscular Hemoglobin 30 pg (25-35) Mean Corpuscular Hemoglobin Concent 35 g/dL (31-37) Red Cell Distribution Width 12.7 % (11.5-14.5) Platelet Count 161 x10^3/uL (140-400) Neutrophils (%) (Auto) 42 % (31-73) Lymphocytes (%) (Auto) 45 % (24-48) Monocytes (%) (Auto) 8 % (0-9) Eosinophils (%) (Auto) 3 % (0-3) Basophils (%) (Auto) 1 % (0-3) Neutrophils # (Auto) 3.7 x10^3uL (1.8-7.7) Lymphocytes # (Auto) 3.9 x10^3/uL (1.0-4.8) Monocytes # (Auto) 0.7 x10^3/uL (0.0-1.1) Eosinophils # (Auto) 0.3 x10^3/uL (0.0-0.7) Basophils # (Auto) 0.1 x10^3/uL (0.0-0.2) Prothrombin Time 11.0 SEC (9.4-11.4) Prothrombin Time INR 1.1 (0.9-1.1) PTT 23 SEC (23-33) D-Dimer (Ruth) 0.95 mg/L (0.00-0.50) H Sodium Level 141 mmol/L (136-145) Potassium Level 3.8 mmol/L (3.5-5.1) Chloride Level 104 mmol/L (98-107) Carbon Dioxide Level 25 mmol/L (21-32) Anion Gap 12 (6-14) Blood Urea Nitrogen 43 mg/dL (7-20) H Creatinine 1.8 mg/dL (0.6-1.0) H Estimated GFR (Cockcroft-Gault) 26.9 Glucose Level 213 mg/dL (70-99) H Calcium Level 9.2 mg/dL (8.5-10.1) Troponin I Quantitative 0.049 ng/mL (0-0.055) BJ-Lkw-P-Type Natriuretic Peptide 587 pg/mL (0-449) H EKG EKG EKG reveals a narrow complex regular rhythm with a rate of 66. P waves are difficult to appreciate. There are small waves which could be U waves present on the EKG or these could represent P waves with a long first-degree AV block. Radiology/Procedures Radiology/Procedures No acute findings on portable CXR Course & Med Decision Making Course & Med Decision Making Pertinent Labs and Imaging studies reviewed. (See chart for details) Patient is seen and examined immediately on arrival. She is complaining of chest pain. She did receive one nitroglycerin in route to the hospital. She seems anxious as well. She is not diaphoretic. Standard ACS workup is ordered. Her initial EKG does not reveal acute findings suspicious for ischemia. 05:00: Patient was given 2 more nitroglycerin in the ER. This did mildly improve her pain but did not relieve her symptoms. She was given a dose of morphine also which did not relieve her pain entirely. Finally, she was given a small dose of intravenous Ativan. This medication relieved her pain symptoms entirely within a few minutes. She also appeared more relaxed. Decision was made to admit this patient. She is status post bypass surgery 13 years earlier. I discussed this patient with Dr. Taveras who will admit as primary. Cardiology consultation is placed. Orders are also placed for trending EKGs and troponins as well as heparin drip. Medical Decision Making: - Initial troponin is not elevated. The EKG was non-acute. The patient was noted to have a harsh systolic ejection murmur at the left sternal border. It is unclear if this is chronic. No radiation to carotids. Patient was noted to have an elevated creatinine. Review of EMR reveals this to be baseline. D- dimer was also mildly elevated. This can be baseline with age and also in the setting of CKD. That said, the patient's chest pain came on suddenly and she had some mild dyspnea symptoms. Her troponin is not elevated and there is currently no additional explanation for her pain symptoms. She does not have tachycardia or hypoxia. CT angiography cannot be completed on this patient given her creatinine. VQ scan can be ordered to evaluate the probability of large PE but the VQ scanner is in the main a building of the hospital. Patient would need to go there for admission anyway. To err on the side of caution, the patient will be started on a heparin drip. If her troponins eventually do elevate this will be of benefit. She can undergo VQ scan later in the morning and the heparin drip can be turned off if not indicated. Plan of care including admission is discussed with the patient and her daughter and all of their questions are answered. Patient has living will and requests to be DO NOT RESUSCITATE Final Impression Final Impression [] Dragon Disclaimer Dragon Disclaimer This electronic medical record was generated, in whole or in part, using a voice recognition dictation system. ZAHIRA LEONE DO October 24, 2017 03:50
[2017-10-24 03:55] LABS: BASO # 0.1 x10^3/uL (0.0-0.2); BASO % 1 % (0-3); EOS # 0.3 x10^3/uL (0.0-0.7); EOS % 3 % (0-3); HEMATOCRIT 35.1 % (36.0-47.0); HEMOGLOBIN 12.2 g/dL (12.0-15.5); LYMPH # 3.9 x10^3/uL (1.0-4.8); LYMPH % 45 % (24-48); MEAN CORPUSCULAR HEMOGLOBIN 30 pg (25-35); MEAN CORPUSCULAR HGB CONC 35 g/dL (31-37); MEAN CORPUSCULAR VOLUME 87 fL (79-100); MONO # 0.7 x10^3/uL (0.0-1.1); MONO % 8 % (0-9); NEUT # 3.7 x10^3uL (1.8-7.7); NEUT % 42 % (31-73); PLATELET COUNT 161 x10^3/uL (140-400); RED BLOOD COUNT 4.02 x10^6/uL (3.50-5.40); RED CELL DISTRIBUTION WIDTH 12.7 % (11.5-14.5); WHITE BLOOD COUNT 8.7 x10^3/uL (4.0-11.0)
[2017-10-24] MEDS ORDERED: LORazepam 2 MG/ML VIAL IV ONE (04:15)
[2017-10-24 04:16] LABS: CALCIUM 9.2 mg/dL (8.5-10.1); CREATININE 1.8 mg/dL (0.6-1.0); GFR 26.9; POTASSIUM 3.8 mmol/L (3.5-5.1)
--- NOTE | 2017-10-24 04:30 | EKG ---
[address] [address] Test Date: 2017-10-24 Test Time: 03:36:21 Pat Name: LENORA RENDON Department: Room: Gender: F Sleeve Turner: : 1935 Requested By: ZAHIRA LEONE Order Number: [id number] Reading MD: Measurements Intervals [place] Rate: 66 P: SC: QRS: -11 QRSD: 90 T: 92 QT: 448 QTc: 472 Interpretive Statements IRREGULAR RHYTHM, NO P-WAVE FOUND LEFTWARD AXIS QRS(T) CONTOUR ABNORMALITY CONSIDER ANTEROSEPTAL MYOCARDIAL DAMAGE T ABNORMALITY IN HIGH LATERAL LEADS PROLONGED QT ABNORMAL ECG RI6.01 No previous ECG available for comparison
[2017-10-24] MEDS ORDERED: MORPHINE SULFATE 4 MG/ML DISP.SYRIN. IV PRN (04:45)
[2017-10-24] MEDS ORDERED: ONDANSETRON PF 4 MG/2 ML VIAL. IV PRN (04:45)
[2017-10-24] MEDS ORDERED: ACETAMINOPHEN 325 MG TABLET PO PRN (04:45)
[2017-10-24] MEDS ORDERED: HEPARIN 25,000UTS/500ML PREMIX 500 ML IV PRN (04:45)
[2017-10-24] MEDS ORDERED: LORazepam 2 MG/ML VIAL IV PRN (04:45)
[2017-10-24] MEDS ORDERED: HEPARIN for IV BOLUS 10,000 UNIT/10 ML VIAL. IV ONE (05:00)
[2017-10-24 07:30] VITALS: BP 160/67
--- NOTE | 2017-10-24 07:48 | RAD ---
PORTABLE CHEST 1V History: Chest pain Comparison: October 20, 2016 Findings: Single view of the chest is submitted. There again has been a median sternotomy. There is no lobar consolidation, pleural fluid, pneumothorax. There is again granuloma of the mid right hemithorax. Pericardial cardiac silhouette appears somewhat more prominent although may be due to differences in technique. Impression: 1. Pericardial cardiac silhouette appears somewhat more prominent although may be due to differences in technique. Otherwise no acute abnormality is identified. Electronically signed by: Rene Fontaine MD (10/24/2017 7:45 AM) [id number]
[2017-10-24 10:25] VITALS: BP 143/72
--- NOTE | 2017-10-24 10:48 | RAD ---
VQ Scan: Clinical History: Elevated d-dimer. Technique: 18.8 mCi of xenon-133 was administered as an aerosol and spot views were obtained on a gamma camera for a Nuclear Medicine ventilation examination. 5.5 mCi of Tc 99m MAA was administered intravenously and spot views were obtained on the gamma camera for a Nuclear Medicine perfusion examination. Static images were reviewed as a V/Q scan in order to exclude pulmonary embolism. Findings: There is minimal retention of radiotracer in the lungs on the washout phase on the ventilation scan. Perfusion images are homogeneous without perfusion defects. This is very low probability for pulmonary embolism based on the modified PIOPED criteria. Impression: Very low probability for pulmonary embolism. Electronically signed by: Alex Andersen MD (10/24/2017 10:45 AM) [id number]
[2017-10-24] MEDS ORDERED: CRAN405C PO (11:40)
[2017-10-24] MEDS ORDERED: CRAN500T2 PO (11:40)
[2017-10-24] MEDS ORDERED: LOSA25TA4 PO (11:40)
[2017-10-24] MEDS ORDERED: GARL1TAB2 PO (11:40)
[2017-10-24] MEDS ORDERED: ASPI-630 PO (11:40)
[2017-10-24] MEDS ORDERED: INSU100I30 SQ (11:40)
[2017-10-24] MEDS ORDERED: POTA10TA10 PO (11:40)
[2017-10-24] MEDS ORDERED: CRESTOR20 MG PO (11:40)
[2017-10-24] MEDS ORDERED: CHLO25TA PO (11:40)
[2017-10-24] MEDS ORDERED: LIRA0.6P2 SQ (11:40)
[2017-10-24] MEDS ORDERED: MULT1TAB52 PO (11:40)
[2017-10-24] MEDS ORDERED: DEXTROSE 50% 25 GM / 50ML DISP.SYRIN. IV PRN (12:15)
[2017-10-24] MEDS: POTASSIUM CHLORIDE 20 MEQ TABLET.ER. PO SCH ×2 (12:25→20:52)
[2017-10-24] MEDS: ATORVASTATIN CALCIUM 20 MG TABLET PO SCH (12:25)
[2017-10-24] MEDS: MULTIVITAMIN with MINERAL TABLET. PO SCH (12:25)
[2017-10-24] MEDS: ASPIRIN 81 MG TAB.CHEW PO SCH (12:25)
[2017-10-24] MEDS: INSULIN LISPRO 300 UNITS/3 ML INSULN.PEN. SQ SCH ×2 (12:29→17:07)
[2017-10-24] MEDS: ISOSORBIDE MONONITRATE ER 30 MG TAB.ER.24H PO SCH (14:29)
[2017-10-24 14:45] VITALS: BP 153/63
--- NOTE | 2017-10-24 15:50 | PDOC2 ---
DEVANG DAHL LOOM OPERATOR 10/24/17 1550: CONSULT Date of Admission DATE: 10/24/17 TIME: 15:26 Reason for Consult: Chest pain Referring Physician: Dr Hess Problem List Problems Medical Problems: (1) Chronic kidney disease Status: Acute (2) Other chest pain Status: Acute History of Present Illness This is a 81 year old female who presented to the emergency room via EMS with chief complaint of chest pressure. This patient has a history of coronary artery disease with previous bypass surgery, hypertension, hyperlipidemia and diabetes mellitus, type II. This morning she got up to go to the bathroom and upon lying back in bed she developed substernal chest pressure. It made her feel short of breath and felt immense. She got up and took some Tums but they did not help and after 15 min she became very worried and called her daughter. She also called EMS and then had a episode of vomiting. EMS arrived and gave her one dose of nitroglycerin and an aspirin which did help the pain. When she went into the emergency room they gave her a 2nd dose which alleviated the rest of her pain. Today she is pain free she has been up and had a V/Q scan without having an increase or resumption of pain. Her breathing is back to baseline. Her stomach was upset but has felt better since she ate her lunch. Prior to yesterday she was in a stable state of health. She lives on the 2nd floor at her apartment and does go in and out of the building without any shortness of breath or chest discomfort. She had not noticed any recent change in function. She denies any palpitations, lightheadedness, PND or orthopnea. Allergies CODEINE: Vomiting (Mild to moderate) COREG: Itching (Mild to moderate) SIMVASTATIN: Hives (Mild to moderate) SULFASALAZINE: Itching (Mild to moderate) Medications aspirin 81 mg tablet Daily chlorthalidone 12.5 mg daily levothyroxine 88 mcg daily losartan 50 mg daily NIFEdipine ER 60 mg tablet,extended release 1 tablet twice a day potassium chloride ER 10 mEq capsule,extended release daily rosuvastatin 20 mg tablet daily Tresiba FlexTouch U-100 insulin 100 unit/mL (3 mL) subcutaneous pen Victoza 2-Sylvain 0.6 mg/0.1 mL (18 mg/3 mL) subcutaneous pen injector INJECT 1.2 MG BY SUBCUTANEOUS ROUTE ONCE DAILY Family History - Her father and her son had coronary artery disease. Her daughter and her son have diabetes mellitus Social History Occupation: retired Marital status: Live alone or with others?: alone Number of children: 3 Diet: Regular Exercise level: Occasional Smoking Status: Former smoker Smoker (1/2 PPD) Tobacco-years of use: 15 Alcohol intake: None Caffeine intake: Occasional Past Medical/ Surgical History Coronary Artery Disease: Y High Cholesterol: Y Hypertension: Y Valvular Heart Disease: Y Chronic Kidney Disease: Y Diabetes: Y Review of systems- review of 10 organ systems is negative except for as in history of present illness. Physical Exam Patient is an 81-year-old female. GENERAL: This is a well developed, well nourished female. No apparent distress. SKIN: Warm and dry with normal skin turgor. Negative for pallor. No lesions or rashes noted. EYES: Conjunctiva are clear. Extraocular movements are intact. No xanthelasma. HEAD AND NECK: Oral mucosa is moist. There is no cyanosis. Neck is supple. Jugular venous pressure is flat. Carotid pulses are 2/2 bilaterally. No carotid bruits. There is no obvious thyromegaly. HEART: Regular rate and rhythm. Normal S1 and S2. No S3. No S4. + systolic murmur LUNGS: Effort is good. There is symmetric expansion bilaterally. Clear to auscultation bilaterally. No wheezes. No crackles. No rhonchi. ABDOMEN: Normal active bowel sounds. Soft. Nontender. EXTREMITIES: No clubbing. No cyanosis. +1 edema of lower extremities left greater than right. + red/warm MUSCULOSKELETAL: No kyphosis. No scoliosis. No localized tenderness or stiffness. Gait appears normal. NEUROLOGIC: Alert and oriented times three. Cranial nerves III-XII are grossly intact. Good motor tone and strength in the upper and lower extremities bilaterally. PSYCHOLOGIC: This is a pleasant patient with a normal affect. Procedure: ECHOCARDIOGRAM IMPRESSION (05/16/2017):. There is mild concentric left ventricular hypertrophy. The left ventricular systolic function is normal with a visually estimated ejection fraction of >65%. There is evidence of fixed left ventricular restrictive filling suggestive of stage IV diastolic dysfunction. The left atrium appears moderately dilated. The right atrium appears moderately dilated. The proximal ascending aorta appears mildly dilated at 3.5 cm. There is mild aortic stenosis with a mean gradient of 7 mmHg, a peak gradient of 15 mmHg, a peak velocity of 2 m/s and a calculated aortic valve area of 1.6 cm2. There is mild mitral annular calcification. There is moderate mitral regurgitation. There is moderate mitral and tricuspid regurgitation. The estimated pulmonary artery systolic pressure is 45 mmHg, consistent with mild pulmonary hypertension. Compared to the report (images were not available for review) of the study dated 05/15/2016, the left ventricular hypertrophy, the dilatation of the left atrium and the aortic stenosis were not noted on the previous study. LEXISCAN NUCLEAR STRESS TEST IMPRESSION (10/31/2016): Normal myocardial perfusion scan The summed stress score is zero. There is evidence of breast tissue attenuation artifact Normal left ventricular systolic function Ejection fraction: 70%. There is no stress induced left ventricular dilatation or increase in lung to heart ratio. There were no stress induced ECG changes. There were premature ventricular complexes and the patient had atrial fibrillation throughout. There was no stress induced chest pain. Compared to the report (images were not available for review) from the previous study performed on 04/16/2013, there was no significant change. CAROTID DUPLEX 04/17/13: Mild disease in carotid bulb, ICA, ECA. No significant flow limiting lesions in carotid bulb, ICA, ECA, CCA The left vertebrals antegrade flow. Assessment / Plan Chest pain - her troponin is mildly elevated but not significant in the presence of chronic kidney disease. It is also flat the 1st to without traditional rise that you would see in the myocardial infarction. Her EKG does not show any acute ischemic changes. However her symptoms are significant and with her history of bypass surgery will plan for aggressive medical therapy, inpatient echocardiogram and follow-up stress test. With her GFR being 26 a cardiac catheterization with her being pain-free is not needed at this point. In the past she did not tolerate beta-holden due to bradycardia. She is on a calcium channel holden, aspirin, statin and will add Imdur. Plan it to walk around this evening and see if she has a increase in symptoms and if not we will plan to discharge home tomorrow for an outpatient stress test. If she starts having chest pain with activity will likely need to keep her over the weekend and do a stress test Saturday. We did consider doing a stress test in the hospital tomorrow however the patient had a V/Q scan today and is not able to have nuclear medication again for 48 hr. Coronary artery disease with previous coronary bypass surgery in 2004. Hypertension with CKD, controlled. We need to adjust the patients anti- hypertensive medications. Hyperlipidemia. Her goal LDL is < 70 mg/dL. Continue Crestor Moderate MR/TR - Plan for echocardiogram Diabetes Mellitus, type II - treatment per primary care provider. Chronic kidney disease, Stage 4 - at 26% on last lab. lower extremity cellulitis -treatment per primary. Obesity, Body Mass Index - 32. Lifestyle modification with exercise, diet and weight loss recommended. Current Medications Current Medications Morphine Sulfate (Morphine 4mg Syringe) 4 mg PRN Q15MIN PRN IV/SQ PAIN GREATER THAN 3/10 Last administered on 10/24/17at 03:51; Start 10/24/17 at 03:45; Stop at 08:11; Status DC Nitroglycerin (Nitrostat) 0.4 mg PRN Q5MIN PRN SL chest pain Last administered on 10/24/17at 03:51; Start 10/24/17 at 03:45 Lorazepam (Ativan) 0.25 mg 1X ONCE IV Last administered on 10/24/17at 04:13; Start 10/24/17 at 04:15; Stop 10/24/17 at 04:17; Status DC Ondansetron HCl (Zofran) 4 mg PRN Q4HRS PRN IV NAUSEA/VOMITING; Start 10/24/17 at 04:45; Stop 10/25/17 at 04:44 Morphine Sulfate (Morphine 4mg Syringe) 4 mg PRN Q2HR PRN IV PAIN; Start at 04:45; Stop 10/25/17 at 04:44 Acetaminophen (Tylenol) 650 mg PRN Q4HRS PRN PO FEVER; Start 10/24/17 at 04:45 ; Stop 10/25/17 at 04:44 Nitroglycerin (Nitrostat) 0.4 mg PRN Q5MIN PRN SL CHEST PAIN; Start 10/24/17 at 04:45; Stop 10/25/17 at 04:44; Status Cancel Heparin Sodium/ Dextrose 500 ml @ 0 mls/hr CONT PRN IV SEE I/O RECORD; Start at 04:45 Heparin Sodium (Porcine) (Heparin Sodium) 4,000 unit 1X ONCE IV ; Start at 05:00; Stop 10/24/17 at 05:01; Status DC Lorazepam (Ativan) 0.25 mg PRN Q8HRS PRN IV anxiety; Start 10/24/17 at 04:45 Levothyroxine Sodium (Synthroid) 88 mcg DAILYAC PO ; Start 10/25/17 at 07:30 Aspirin (Children'S Aspirin) 81 mg DAILYWBKFT PO Last administered on at 12:25; Start 10/24/17 at 12:00 Non-Formulary Medication (Cranberry Extract (Cranberry)) 500 mg DAILY PO ; Start 10/25/17 at 09:00; Status UNV Insulin Glargine (Lantus) 30 units QHS SQ ; Start 10/24/17 at 21:00 Non-Formulary Medication (Liraglutide (Victoza 3-Sylvain)) 0.6 mg DAILY SQ ; Start 10/25/17 at 09:00; Stop 10/25/17 at 09:00; Status DC Multivitamins/ Calcium (Thera-M Plus) 1 tab DAILY PO Last administered on at 12:25; Start 10/24/17 at 12:00 Potassium Chloride (Klor-Con) 20 meq BID PO Last administered on 10/24/17at 12: 25; Start 10/24/17 at 12:00 Atorvastatin Calcium (Lipitor) 80 mg DAILY PO Last administered on 10/24/17at 12 :25; Start 10/24/17 at 12:00 Insulin Human Lispro (HumaLOG) 0-7 UNITS TIDWMEALS SQ Last administered on 10/24at 12:29; Start 10/24/17 at 12:00 Dextrose 12.5 gm PRN Q15MIN PRN IV SEE COMMENTS; Start 10/24/17 at 12:15 Isosorbide Mononitrate (Imdur) 60 mg DAILY PO Last administered on 10/24/17at 14 :29; Start 10/24/17 at 13:30 Active Scripts Active Reported Cranberry (Cranberry Extract) 500 Mg Tablet 500 Mg PO DAILY Cranberry (Cranberry Extract) 405 Mg Capsule 405 Mg PO Aspirin 81 Mg Tab.chew 81 Mg PO DAILY Garlic 1 Each Tablet 1 Each PO DAILY Victoza 3-Sylvain (Liraglutide) 0.6 Mg/0.1 Ml Pen.injctr 0.6 Mg SQ DAILY Tresiba Flextouch U-100 (Insulin Degludec) 100 Unit/1 Ml Insuln.pen 30 Unit SQ HS Multivitamins (Multivitamin) 1 Each Tablet 1 Tab PO DAILY Potassium Chloride 10 Meq Tablet.er 20 Meq PO BID Crestor (Rosuvastatin Calcium) 20 Mg Tablet 1 Tab PO DAILY Losartan Potassium 25 Mg Tablet 25 Mg PO DAILY Chlorthalidone 25 Mg Tablet 12.5 Mg PO DAILY Nifedipine Er (Nifedipine) 60 Mg Tab.er.24 60 Mg PO BID LAST DOSE; NEXT DOSE; 11/15 AT 9 AM Levothyroxine Sodium 88 Mcg Tablet 88 Mcg PO DAILYAC LAST DOSE; 11/14 AT 7 AM NEXT DOSE; 11/15 AT 7 AM Allergies: Coded Allergies: codeine (Verified Allergy, Intermediate, nausea and vomiting, 11/12/13) VITALS Vital Signs Date Time Temp Pulse Resp B/P (MAP) Pulse Ox O2 Delivery O2 Flow Rate FiO2 10/24/17 14:45 97.7 66 20 153/63 (93) 97 Room Air Labs Laboratory Tests Test 10/24/17 03:40 10/24/17 07:39 10/24/17 09:37 10/24/17 11:22 White Blood Count 8.7 x10^3/uL (4.0-11.0) Red Blood Count 4.02 x10^6/uL (3.50-5.40) Hemoglobin 12.2 g/dL (12.0-15.5) Hematocrit 35.1 % (36.0-47.0) Mean Corpuscular Volume 87 fL (79-100) Mean Corpuscular Hemoglobin 30 pg (25-35) Mean Corpuscular Hemoglobin Concent 35 g/dL (31-37) Red Cell Distribution Width 12.7 % (11.5-14.5) Platelet Count 161 x10^3/uL (140-400) Neutrophils (%) (Auto) 42 % (31-73) Lymphocytes (%) (Auto) 45 % (24-48) Monocytes (%) (Auto) 8 % (0-9) Eosinophils (%) (Auto) 3 % (0-3) Basophils (%) (Auto) 1 % (0-3) Neutrophils # (Auto) 3.7 x10^3uL (1.8-7.7) Lymphocytes # (Auto) 3.9 x10^3/uL (1.0-4.8) Monocytes # (Auto) 0.7 x10^3/uL (0.0-1.1) Eosinophils # (Auto) 0.3 x10^3/uL (0.0-0.7) Basophils # (Auto) 0.1 x10^3/uL (0.0-0.2) Prothrombin Time 11.0 SEC (9.4-11.4) Prothromb Time International Ratio 1.1 (0.9-1.1) Activated Partial Thromboplast Time 23 SEC (23-33) D-Dimer (Ruth) 0.95 mg/L (0.00-0.50) Sodium Level 141 mmol/L (136-145) Potassium Level 3.8 mmol/L (3.5-5.1) Chloride Level 104 mmol/L (98-107) Carbon Dioxide Level 25 mmol/L (21-32) Anion Gap 12 (6-14) Blood Urea Nitrogen 43 mg/dL (7-20) Creatinine 1.8 mg/dL (0.6-1.0) Estimated GFR (Cockcroft-Gault) 26.9 Glucose Level 213 mg/dL (70-99) Calcium Level 9.2 mg/dL (8.5-10.1) Troponin I Quantitative 0.049 ng/mL (0-0.055) 0.053 ng/mL (0-0.055) DJ-Tgv-T-Type Natriuretic Peptide 587 pg/mL (0-449) Glucose (Fingerstick) 277 mg/dL (70-99) 347 mg/dL (70-99) MARYBETH GRAYSON Jr, MD 10/28/17 0620: CONSULT Assessment/Plan The patient was seen by Devang Dahl APRN and I have reviewed her findings and plan and agree with above. Due to staffing constraints, we did not have an attending available on this day to see the patient. MD ZORAN Jacobson Jr., JANAE M APRN October 24, 2017 15:50 MARYBETH GRAYSON Jr, MD Oct 28, 2017 06:20
--- NOTE | 2017-10-24 16:15 | HP ---
ADMIT DATE: 10/24/2017 HISTORY OF PRESENT ILLNESS: The patient is an 81-year-old female patient who came to the Emergency Room with a complaint of chest pain. She apparently was asleep and woke up with a complaint of chest pressure. The pain is mostly retrosternal. Has no shortness of breath. Did complain of nausea and vomited once, but denied any diaphoresis or palpitation. She took some antacids without much improvement and once as the pain continued, she called her daughter and also the ambulance, she received 1 nitroglycerin and full strength baby aspirin en route and again in the hospital, she received another nitroglycerin that improved her pain. Eventually, she received morphine and the pain has completely subsided. She was extensively investigated in the Emergency Room and her first set of cardiac enzyme showed that her troponin was elevated at 0.049, however, her D-dimer was also extremely high at 0.95 and given her impaired kidney function, she underwent a V/Q scan, which was read as low probability for pulmonary embolism and the patient was admitted to do 2 more sets of cardiac enzyme and to consult the cardiology team. PAST MEDICAL HISTORY: Significant for type 2 diabetes, hypertension, hyperlipidemia, chronic kidney disease, hypothyroidism, osteoarthritis, chronic back pain and recurrent left lower extremity cellulitis. PAST SURGICAL HISTORY: Significant for bilateral cataract extraction, coronary artery bypass graft x 5, carotid endarterectomy, back surgery. ALLERGIES: SHE IS ALLERGIC TO CODEINE. MEDICATIONS: She is currently on following medications: She is on Crestor 20 mg at bedtime, nifedipine 60 mg twice a day, losartan potassium 25 mg daily, aspirin 81 mg once a day, potassium chloride 20 ____ twice a day, chlorthalidone 12.5 mg once a day, Victoza 0.6 mg subcutaneously daily and Tresiba 30 units at bedtime, levothyroxine sodium 88 mcg once a day, multivitamin 1 tablet once a day, cranberry extract 405 mg daily and garlic 1 tablet once a day. FAMILY HISTORY: She has 2 sisters, both older, one because of overdose, the other is still alive. One brother younger and also has stent in his heart. Her father at age of 56 because of cerebral hemorrhage. Mother at age of 73 because of myocardial infarction. She lives alone. SOCIAL HISTORY: She has one daughter and one son. She is an ex-smoker, quit in 1979. She does not drink alcohol. REVIEW OF SYSTEMS: The patient denied any blurring of vision, cataract, glaucoma or macular degeneration. Denied any earache, tinnitus or sensorineural deafness. Denied any nosebleeds, stuffy nose or postnasal drip. Denied any sore throat, sore tongue, toothache, hoarseness of voice or difficulty swallowing. Denied any nausea, vomiting, diarrhea or constipation. Denied any hematemesis, melena or hematochezia. Denied any dysuria, frequency or hematuria. Did complain of chest pain, but denied any shortness of breath, orthopnea or paroxysmal nocturnal dyspnea. Denied any cough, phlegm or hemoptysis. Denied any chills, rigors or fever. PHYSICAL EXAMINATION: GENERAL: On arrival to the Emergency Room, she looked well and was clearly in no apparent respiratory distress, pale. No jaundice or cyanosis. No lymphadenopathy, no thyromegaly. No jugular venous distention. No limb edema. VITAL SIGNS: Her heart rate was 64, blood pressure 143/52, temperature was 97.6, respiratory rate 20, and oxygen saturation was 94% on room air. HEENT: Showed normocephalic, atraumatic. NECK: Supple. HEART: Showed normal first and second sounds. No gallop or murmur. CHEST: Clear to auscultation. No crepitation or rhonchi. ABDOMEN: Distended, soft, nontender. No guarding or rigidity. No organomegaly. All hernial orifices intact. Bowel sounds normal. NEUROLOGIC: She is awake, alert, responding appropriately. All cranial nerves intact. EXTREMITIES: She moves extremities without difficulty. She ambulates without assistance or assistive devices. LABORATORY DATA: Showed a white cell count of 8700, hemoglobin 12, hematocrit 35, MCV 87 and platelet count of 161,000. Her prothrombin time was 11, INR of 1.1, aPTT was 23 and D-dimer was 0.95 mg. Her chemistry showed a serum sodium 141, potassium 3.8, chloride 104, bicarbonate 25, anion gap of 12, BUN 43, creatinine 1.8, estimated GFR was 27 mL per minute. Her glucose was 213, calcium was 9.2. Her first set of cardiac enzyme showed troponin to be less than 0.049. Her chest x-ray showed that her pericardial cardiac silhouette appears somewhat more prominent, although may be due to differences in technique. Otherwise, no acute abnormalities identified. ASSESSMENT AND PLAN: Given that she has chest pain and D-dimer was elevated, she underwent a V/Q scan, which basically showed that there is very low probability of pulmonary embolism based on the modified PIOPED criteria. The patient was admitted to do 2 more sets of cardiac enzyme, consult the Cardiology team. SHANNAN ALFARO MD DR: JANELLE/pallavi JOB#: [id number] / [id number]
[2017-10-24 19:34] VITALS: BP 127/70
[2017-10-24] MEDS ORDERED: INSULIN GLARGINE 300 UNITS/3 ML INSULN.PEN. SQ SCH (21:00)
[2017-10-24 23:01] VITALS: BP 130/67
[2017-10-25 05:27] VITALS: BP 132/68
[2017-10-25 06:20] LABS: CALCIUM 9.3 mg/dL (8.5-10.1); CREATININE 1.8 mg/dL (0.6-1.0); GFR 26.9; POTASSIUM 4.4 mmol/L (3.5-5.1)
[2017-10-25 06:28] LABS: BASO # 0.1 x10^3/uL (0.0-0.2); BASO % 1 % (0-3); EOS # 0.4 x10^3/uL (0.0-0.7); EOS % 5 % (0-3); HEMATOCRIT 34.8 % (36.0-47.0); HEMOGLOBIN 11.7 g/dL (12.0-15.5); LYMPH # 2.6 x10^3/uL (1.0-4.8); LYMPH % 29 % (24-48); MEAN CORPUSCULAR HEMOGLOBIN 30 pg (25-35); MEAN CORPUSCULAR HGB CONC 34 g/dL (31-37); MEAN CORPUSCULAR VOLUME 90 fL (79-100); MONO # 0.6 x10^3/uL (0.0-1.1); MONO % 7 % (0-9); NEUT # 5.3 x10^3uL (1.8-7.7); NEUT % 59 % (31-73); PLATELET COUNT 171 x10^3/uL (140-400); RED BLOOD COUNT 3.85 x10^6/uL (3.50-5.40); RED CELL DISTRIBUTION WIDTH 13.1 % (11.5-14.5)
[2017-10-25] MEDS ORDERED: LEVOTHYROXINE 88 MCG TABLET PO SCH (07:30)
[2017-10-25] MEDS: INSULIN LISPRO 300 UNITS/3 ML INSULN.PEN. SQ SCH ×2 (08:00→12:00)
[2017-10-25] MEDS: ASPIRIN 81 MG TAB.CHEW PO SCH (08:13)
[2017-10-25] MEDS: ATORVASTATIN CALCIUM 20 MG TABLET PO SCH (08:13)
[2017-10-25] MEDS: POTASSIUM CHLORIDE 20 MEQ TABLET.ER. PO SCH (08:14)
[2017-10-25] MEDS: MULTIVITAMIN with MINERAL TABLET. PO SCH (08:14)
[2017-10-25] MEDS: ISOSORBIDE MONONITRATE ER 30 MG TAB.ER.24H PO SCH (08:14)
--- NOTE | 2017-10-25 08:46 | PDOC ---
DEVANG MEEHAN [employer] 10/25/17 0846: PROGRESS NOTES Diagnosis Problem Problems Medical Problems: (1) Chronic kidney disease Status: Acute (2) Other chest pain Status: Acute Assessment Problems We are seeing the patient for chest pain Chest pain -Resolved. Her troponin is mildly elevated but flat without rise. Likely due to chronic kidney disease. Echo is pending. Plan for discharge once reviewed and will set up for out patient mustapha stress. Continue asa, ccb, statin and imdur Coronary artery disease with previous coronary bypass surgery in 2004. Hypertension with CKD, controlled. Continue present anti-hypertensive medication. Hyperlipidemia. Her goal LDL is < 70 mg/dL. Continue Crestor Moderate MR/TR - Echocardiogram Diabetes Mellitus, type II - treatment per primary care provider. Chronic kidney disease, Stage 4 - at 26% on last lab. She is not planning to proceed with dialysis in the future even if needed. Obesity, Body Mass Index - 32. Lifestyle modification with exercise, diet and weight loss recommended. Subjective Up walking in the [place] last night with walker. No further episodes of chest pain. Denies shortness of breath or palpitations. Objective Vital Signs Date Time Temp Pulse Resp B/P (MAP) Pulse Ox O2 Delivery O2 Flow Rate FiO2 10/25/17 08:14 60 132/68 10/25/17 08:00 Room Air 10/25/17 05:27 97.7 14 95 Intake and Output 10/25/17 07:00 Intake Total 720 ml Output Total 400 ml Balance 320 ml Intake Oral 720 ml Output Urine Total 400 ml # Voids 6 Abdomen: Normal bowel sounds, Soft, No hepatospenomegaly Heart: Regular rate, Normal S1, Normal S2, No murmurs Extremities: No edema (+left with redness), Normal pulses General: Alert, Oriented X3, Cooperative HEENT: EOMI, Mucous membr. moist/pink Lungs: Clear to auscultation Psych/Mental Status: Mental status NL, Mood NL Review of Relevant I have reviewed the following items catherine (where applicable) has been applied. Labs Laboratory Tests Test 10/24/17 03:40 10/24/17 07:39 10/24/17 09:37 10/24/17 11:22 White Blood Count 8.7 x10^3/uL (4.0-11.0) Red Blood Count 4.02 x10^6/uL (3.50-5.40) Hemoglobin 12.2 g/dL (12.0-15.5) Hematocrit 35.1 % (36.0-47.0) Mean Corpuscular Volume 87 fL (79-100) Mean Corpuscular Hemoglobin 30 pg (25-35) Mean Corpuscular Hemoglobin Concent 35 g/dL (31-37) Red Cell Distribution Width 12.7 % (11.5-14.5) Platelet Count 161 x10^3/uL (140-400) Neutrophils (%) (Auto) 42 % (31-73) Lymphocytes (%) (Auto) 45 % (24-48) Monocytes (%) (Auto) 8 % (0-9) Eosinophils (%) (Auto) 3 % (0-3) Basophils (%) (Auto) 1 % (0-3) Neutrophils # (Auto) 3.7 x10^3uL (1.8-7.7) Lymphocytes # (Auto) 3.9 x10^3/uL (1.0-4.8) Monocytes # (Auto) 0.7 x10^3/uL (0.0-1.1) Eosinophils # (Auto) 0.3 x10^3/uL (0.0-0.7) Basophils # (Auto) 0.1 x10^3/uL (0.0-0.2) Prothrombin Time 11.0 SEC (9.4-11.4) Prothromb Time International Ratio 1.1 (0.9-1.1) Activated Partial Thromboplast Time 23 SEC (23-33) D-Dimer (Ruth) 0.95 mg/L (0.00-0.50) Sodium Level 141 mmol/L (136-145) Potassium Level 3.8 mmol/L (3.5-5.1) Chloride Level 104 mmol/L (98-107) Carbon Dioxide Level 25 mmol/L (21-32) Anion Gap 12 (6-14) Blood Urea Nitrogen 43 mg/dL (7-20) Creatinine 1.8 mg/dL (0.6-1.0) Estimated GFR (Cockcroft-Gault) 26.9 Glucose Level 213 mg/dL (70-99) Calcium Level 9.2 mg/dL (8.5-10.1) Troponin I Quantitative 0.049 ng/mL (0-0.055) 0.053 ng/mL (0-0.055) TQ-Wcy-Z-Type Natriuretic Peptide 587 pg/mL (0-449) Glucose (Fingerstick) 277 mg/dL (70-99) 347 mg/dL (70-99) Test 10/24/17 15:55 10/24/17 16:35 10/24/17 20:47 10/25/17 05:50 Troponin I Quantitative 0.043 ng/mL (0-0.055) Glucose (Fingerstick) 252 mg/dL (70-99) 217 mg/dL (70-99) White Blood Count 9.0 x10^3/uL (4.0-11.0) Red Blood Count 3.85 x10^6/uL (3.50-5.40) Hemoglobin 11.7 g/dL (12.0-15.5) Hematocrit 34.8 % (36.0-47.0) Mean Corpuscular Volume 90 fL (79-100) Mean Corpuscular Hemoglobin 30 pg (25-35) Mean Corpuscular Hemoglobin Concent 34 g/dL (31-37) Red Cell Distribution Width 13.1 % (11.5-14.5) Platelet Count 171 x10^3/uL (140-400) Neutrophils (%) (Auto) 59 % (31-73) Lymphocytes (%) (Auto) 29 % (24-48) Monocytes (%) (Auto) 7 % (0-9) Eosinophils (%) (Auto) 5 % (0-3) Basophils (%) (Auto) 1 % (0-3) Neutrophils # (Auto) 5.3 x10^3uL (1.8-7.7) Lymphocytes # (Auto) 2.6 x10^3/uL (1.0-4.8) Monocytes # (Auto) 0.6 x10^3/uL (0.0-1.1) Eosinophils # (Auto) 0.4 x10^3/uL (0.0-0.7) Basophils # (Auto) 0.1 x10^3/uL (0.0-0.2) Sodium Level 140 mmol/L (136-145) Potassium Level 4.4 mmol/L (3.5-5.1) Chloride Level 106 mmol/L (98-107) Carbon Dioxide Level 23 mmol/L (21-32) Anion Gap 11 (6-14) Blood Urea Nitrogen 49 mg/dL (7-20) Creatinine 1.8 mg/dL (0.6-1.0) Estimated GFR (Cockcroft-Gault) 26.9 Glucose Level 132 mg/dL (70-99) Calcium Level 9.3 mg/dL (8.5-10.1) Test 10/25/17 07:25 Glucose (Fingerstick) 117 mg/dL (70-99) Medications Current Medications Morphine Sulfate (Morphine 4mg Syringe) 4 mg PRN Q15MIN PRN IV/SQ PAIN GREATER THAN 3/10 Last administered on 10/24/17at 03:51; Start 10/24/17 at 03:45; Stop at 08:11; Status DC Nitroglycerin (Nitrostat) 0.4 mg PRN Q5MIN PRN SL chest pain Last administered on 10/24/17at 03:51; Start 10/24/17 at 03:45 Lorazepam (Ativan) 0.25 mg 1X ONCE IV Last administered on 10/24/17at 04:13; Start 10/24/17 at 04:15; Stop 10/24/17 at 04:17; Status DC Ondansetron HCl (Zofran) 4 mg PRN Q4HRS PRN IV NAUSEA/VOMITING; Start 10/24/17 at 04:45; Stop 10/25/17 at 04:44; Status DC Morphine Sulfate (Morphine 4mg Syringe) 4 mg PRN Q2HR PRN IV PAIN; Start at 04:45; Stop 10/25/17 at 04:44; Status DC Acetaminophen (Tylenol) 650 mg PRN Q4HRS PRN PO FEVER; Start 10/24/17 at 04:45 ; Stop 10/25/17 at 04:44; Status DC Nitroglycerin (Nitrostat) 0.4 mg PRN Q5MIN PRN SL CHEST PAIN; Start 10/24/17 at 04:45; Stop 10/25/17 at 04:44; Status Cancel Heparin Sodium/ Dextrose 500 ml @ 0 mls/hr CONT PRN IV SEE I/O RECORD; Start at 04:45 Heparin Sodium (Porcine) (Heparin Sodium) 4,000 unit 1X ONCE IV ; Start at 05:00; Stop 10/24/17 at 05:01; Status DC Lorazepam (Ativan) 0.25 mg PRN Q8HRS PRN IV anxiety; Start 10/24/17 at 04:45 Levothyroxine Sodium (Synthroid) 88 mcg DAILYAC PO Last administered on at 08:14; Start 10/25/17 at 07:30 Aspirin (Children'S Aspirin) 81 mg DAILYWBKFT PO Last administered on 10/25/17at 08:13; Start 10/24/17 at 12:00 Non-Formulary Medication (Cranberry Extract (Cranberry)) 500 mg DAILY PO ; Start 10/25/17 at 09:00; Status UNV Insulin Glargine (Lantus) 30 units QHS SQ Last administered on 10/24/17at 20:52 ; Start 10/24/17 at 21:00 Non-Formulary Medication (Liraglutide (Victoza 3-Sylvain)) 0.6 mg DAILY SQ ; Start 10/25/17 at 09:00; Stop 10/25/17 at 09:00; Status DC Multivitamins/ Calcium (Thera-M Plus) 1 tab DAILY PO Last administered on at 08:14; Start 10/24/17 at 12:00 Potassium Chloride (Klor-Con) 20 meq BID PO Last administered on 10/25/17at 08:14 ; Start 10/24/17 at 12:00 Atorvastatin Calcium (Lipitor) 80 mg DAILY PO Last administered on 10/25/17at 08: 13; Start 10/24/17 at 12:00 Insulin Human Lispro (HumaLOG) 0-7 UNITS TIDWMEALS SQ Last administered on 10/24at 17:07; Start 10/24/17 at 12:00 Dextrose 12.5 gm PRN Q15MIN PRN IV SEE COMMENTS; Start 10/24/17 at 12:15 Isosorbide Mononitrate (Imdur) 60 mg DAILY PO Last administered on 10/25/17at 08: 14; Start 10/24/17 at 13:30 Active Scripts Active Reported Cranberry (Cranberry Extract) 500 Mg Tablet 500 Mg PO DAILY LAST DOSE GIVEN: DATE: TIME: NEXT DOSE DUE: DATE: TIME: Victoza 3-Sylvain (Liraglutide) 0.6 Mg/0.1 Ml Pen.injctr 0.6 Mg SQ DAILY LAST DOSE GIVEN: DATE: TIME: NEXT DOSE DUE: DATE: TIME: Tresiba Flextouch U-100 (Insulin Degludec) 100 Unit/1 Ml Insuln.pen 30 Unit SQ HS LAST DOSE GIVEN: DATE: TIME: NEXT DOSE DUE: DATE: TIME: Potassium Chloride 10 Meq Tablet.er 20 Meq PO BID LAST DOSE GIVEN: DATE: TIME: NEXT DOSE DUE: DATE: TIME: Crestor (Rosuvastatin Calcium) 20 Mg Tablet 1 Tab PO HS LAST DOSE GIVEN: DATE: TIME: NEXT DOSE DUE: DATE: TIME: Losartan Potassium 25 Mg Tablet 25 Mg PO DAILY LAST DOSE GIVEN: DATE: TIME: NEXT DOSE DUE: DATE: TIME: Chlorthalidone 25 Mg Tablet 12.5 Mg PO DAILY LAST DOSE GIVEN: DATE: TIME: NEXT DOSE DUE: DATE: TIME: Nifedipine Er (Nifedipine) 60 Mg Tab.er.24 60 Mg PO BID LAST DOSE GIVEN: DATE: TIME: NEXT DOSE DUE: DATE: TIME: Levothyroxine Sodium 88 Mcg Tablet 88 Mcg PO DAILYAC LAST DOSE GIVEN: DATE: TIME: NEXT DOSE DUE: DATE: TIME: Vitals/I & O Vital Sign - Last 24 Hours 10/24/17 10/24/17 10/24/17 10/24/17 10:25 11:56 14:29 14:45 Temp 97.5 97.7 Pulse 72 72 66 Resp 20 20 B/P (MAP) 143/72 (95) 143/72 153/63 (93) Pulse Ox 98 97 O2 Delivery Room Air Room Air Room Air 10/24/17 10/24/17 10/24/17 10/25/17 19:17 19:34 23:01 05:27 Temp 97.9 98.3 97.7 Pulse 62 66 60 Resp 18 16 14 B/P (MAP) 127/70 (89) 130/67 (88) 132/68 (89) Pulse Ox 95 93 95 O2 Delivery Room Air Room Air Room Air Room Air 10/25/17 10/25/17 08:00 08:14 Pulse 60 B/P (MAP) 132/68 O2 Delivery Room Air Intake and Output 10/24/17 10/24/17 10/25/17 15:00 23:00 07:00 Intake Total 720 ml Output Total 400 ml Balance 320 ml MELISSA LINDO MD 10/25/17 1098: PROGRESS NOTES Assessment I have personally seen and examined patient, and I agree with above. Briefly, Ms. Cheng is doing relatively well this morning. She denies any further symptoms of chest pain. She has not had any significant shortness of breath, and denies any palpitations, lightheadedness, or syncope. Physical Exam: Gen: AAO X3, NAD HEENT: Normal Lungs: CTAB, no wheezes or crackles Heart: RRR, normal S1 and S2, no murmurs, rubs, or gallops. Vasc: Normal peripheral pulses, no carotid bruits. Abdomen: Soft, nontender to palpation, normal BS Ext: No significant pitting edema Neuro: Grossly intact. Impression/Plan: 1. Chest pain, resolved 2. CAD s/p CABG 3. HFpEF 4. Essential hypertension 5. Mixed hyperlipidemia 6. DMII 7. CKD stage 4 Ms. Cheng is doing reasonably well this morning. She has not had any further symptoms of chest pain concerning for angina. She has remained hemodynamically stable. Once again, the patient did have a mild elevation in her troponin, but without a significant delta change. I suspect this is related to her underlying renal insufficiency and not necessarily indicative of ACS. It is reassuring that her symptoms have completely resolved. Etiology continues to be difficult to ascertain. An echocardiogram was done yesterday. This demonstrated normal LV systolic function with no significant regional wall motion abnormalities. She did have evidence of underlying diastolic dysfunction, and mild MR and TR which did not appear to be significantly changed from prior studies. At this point in time, I think it would be reasonable to discharge patient from a cardiovascular standpoint. She will follow up with us in the office next week with plans to undergo a Lexiscan nuclear stress test to rule out underlying inducible ischemia. I agree with holding off on an invasive work up for now given her underlying poor renal function, but this may need to be revisited if stress test is noted be abnormal. If initial noninvasive testing is unremarkable, it may be reasonable to consider further GI work up to rule out a GI source of her symptomatology. In the mean time, I agree with continuing her home cardiac regimen as prescribed. Once again, the patient is not on a BB due to relative bradycardia. The patient has been instructed to return to the ED if she has any reoccurrence of her chest pain. We will sign off. Please feel free to call with any further questions. DEVANG MEEHAN APRN Oct 25, 2017 08:46 MELISSA LINDO MD Oct 25, 2017 09:33
[2017-10-25] MEDS ORDERED: NON FORMULARY ITEM (Cranberry Extract (Cranberry) 500 MG) PO SCH (09:00)
[2017-10-25] MEDS ORDERED: NON FORMULARY ITEM (Liraglutide (Victoza 3-Pak) 0.6 MG) SQ SCH (09:00)
--- NOTE | 2017-10-25 09:11 | CARD ---
MR#: [id number] Date of Study: 10/24/2017 Ordering Physician: DEVANG MEEHAN, Referring Physician: SHANNAN ALFARO Tech: Nolvia Mahoney RDCS APPROVED REPORT EXAM: Two-dimensional and M-mode echocardiogram with Doppler and color Doppler. Other Information Quality : Good INDICATION Chest Pain 2D DIMENSIONS RVDd2.4 (2.9-3.5cm)Left Atrium(2D)4.6 (1.6-4.0cm) IVSd1.3 (0.7-1.1cm)Aortic Root(2D)2.7 (2.0-3.7cm) LVDd4.3 (3.9-5.9cm)LVOT Diameter2.0 (1.8-2.4cm) PWd1.3 (0.7-1.1cm)LVDs3.0 (2.5-4.0cm) FS (%) 31.1 %SV49.6 ml LVEF(%)59.1 (>50%) Aortic Valve AoV Peak Jan.200.1cm/sAoV VTI43.5cm AO Peak GR.16.0mmHgLVOT Peak Jan.119.0cm/s LVOT VTI 31.08cmAO Mean GR.9mmHg CHRISTIANO (VMAX)1.46eq0SWF (VTI)2.21cm2 Mitral Valve MV E Rgbdvdqn096.5cm/sMV DECEL REXF264uy MV A Vonregdt55.3cm/sE/A Ratio1.2 Tricuspid Valve TR P. Ckcrywme598ez/sRAP [id number] TR Peak Gr.75fcBoZUTB61ukTl Pulmonary Vein S1 Grownorv11.6cm/sD2 Onnyoyzz93.2cm/s LEFT VENTRICLE The left ventricle is normal size. There is mild concentric left ventricular hypertrophy. The left ve ntricular systolic function is normal and the ejection fraction is within normal range. The Ejection Fraction is 55-60%. There is normal LV segmental wall motion. Transmitral Doppler flow pattern is Gra de II-pseudonormal filling dynamics. RIGHT VENTRICLE The right ventricle is normal size. The right ventricular systolic function is normal. ATRIA The left atrium is mildly dilated. The right atrium size is normal. The interatrial septum is intact with no evidence for an atrial septal defect or patent foramen ovale as noted on 2-D or Doppler imagi ng. AORTIC VALVE The aortic valve is calcified but opens well. Doppler and Color Flow revealed no significant aortic r egurgitation. There is no significant aortic valvular stenosis. MITRAL VALVE The mitral valve is calcified but opens well. There is no evidence of mitral valve prolapse. There is no mitral valve stenosis. Doppler and Color-flow revealed mild mitral regurgitation. TRICUSPID VALVE The tricuspid valve is normal in structure and function. Doppler and Color Flow revealed mild tricusp id regurgitation. There is mild pulmonary hypertension. The PA pressure was estimated at 33 mmHg. The re is no tricuspid valve stenosis. PULMONIC VALVE The pulmonic valve is not well visualized. Doppler and Color Flow revealed trace pulmonic valvular re gurgitation. There is no pulmonic valvular stenosis. GREAT VESSELS The aortic root is normal in size. The ascending aorta is not well seen. The IVC is normal in size an d collapses >50% with inspiration. PERICARDIAL EFFUSION There is no evidence of significant pericardial effusion. Critical Notification Critical Value: No <Conclusion> There is mild concentric left ventricular hypertrophy. The left ventricular systolic function is normal and the ejection fraction is within normal range. The Ejection Fraction is 55-60%. Transmitral Doppler flow pattern is Grade II-pseudonormal filling dynamics. The right ventricular systolic function is normal. The left atrium is mildly dilated. Doppler and Color-flow revealed mild mitral regurgitation. Doppler and Color Flow revealed mild tricuspid regurgitation. There is mild pulmonary hypertension. The PA pressure was estimated at 33 mmHg. Doppler and Color Flow revealed trace pulmonic valvular regurgitation. There is no evidence of significant pericardial effusion. Signed by : Jimmy Mendoza, Electronically Approved : 10/25/2017 09:09:59
[2017-10-25 10:23] VITALS: BP 161/70
[2017-10-25] MEDS ORDERED: ISOS60TA2 PO (13:36)
--- NOTE | 2017-10-25 23:08 | DS ---
DATE OF DISCHARGE: 10/25/2017 HISTORY OF PRESENT ILLNESS: The patient is an 81-year-old female patient, who came yesterday with a complaint of chest pain. She apparently was asleep and woke up with the complaint of this chest pressure. The pain is mostly retrosternal. She denied any shortness of breath. Did complain of nausea and vomited once, but denied any diaphoresis or palpitation. She took some antacid without much improvement and as the pain continued, she called her daughter and also the ambulance. She did receive one nitroglycerin and full strength baby aspirin en route to the hospital and again while in the Emergency Room, she did receive also morphine and her pain has completely subsided. She was extensively investigated in the Emergency Room. Her first set of cardiac enzyme was elevated at 0.04; however, her D-dimer was also extremely high, and therefore, she underwent a V/Q scan, which was read as low probability for pulmonary embolism. The patient was admitted, had 2 more sets of cardiac enzymes and 3 of them were slightly elevated. She underwent an echocardiogram, which basically showed that she has mild concentric left ventricular hypertrophy, the left ventricular systolic function is normal and ejection fraction is within normal range. Her ejection fraction was 55-60%. She has a grade 2 pseudonormal filling dynamics, right ventricular systolic function is normal. The left atrium is mildly dilated. She has also mild mitral regurgitation, mild tricuspid regurgitation, mild pulmonary hypertension. Her pulmonary artery pressure was 33 mmHg, but there is no evidence of any significant pericardial effusion. The Cardiology team recommended that the patient can be discharged home. She was started on Imdur 60 mg once a day to follow with her office to arrange for an outpatient stress test. PHYSICAL EXAMINATION: GENERAL: When I examined her this afternoon, she was sitting on the edge of the bed comfortably in no apparent respiratory distress. She was pale, but no jaundice, cyanosis or thyromegaly. No jugular venous distension. No lower limb edema. VITAL SIGNS: Her heart rate was 66, blood pressure was 161/70, temperature was 97.4, respiratory rate was 18 and oxygen saturation was 98% on room air. The rest of the clinical exam is stable, has not really changed. LABORATORY DATA: As of this morning, she has 2 more sets of cardiac enzymes, which showed troponin to be slightly elevated at 0.013 and 0.043. Her white cell count was 9000, hemoglobin 12, hematocrit 35, MCV 90 and platelet count of 171,000 and her chemistry showed a serum sodium 140, potassium 4.4, chloride 106, bicarbonate 23, anion gap of 11, BUN 49, creatinine was 1.8. Estimated GFR was 27 mL per minute. Her glucose 132 and calcium was 9.3. DISCHARGE MEDICATIONS: She was discharged home to continue on following medications: Isosorbide mononitrate 60 mg once a day, chlorthalidone 12.5 mg once a day, cranberry extracts 500 mg once a day. She is on Tresiba FlexTouch 100 units per 1 mL, she takes 30 units subcutaneously at bedtime, levothyroxine sodium 88 mcg daily, Victoza 0.6 mg subcutaneously daily, losartan potassium 25 mg once a day, nifedipine extended release for Procardia 60 mg twice a day, potassium chloride 10 mEq twice a day, Crestor 20 mg at bedtime. FINAL DISCHARGE DIAGNOSES: 1. Chest pain with troponins mildly elevated, but flat without any rise, likely reflecting chronic kidney disease. 2. Coronary artery disease, previous bypass surgery in 2004, hypertension, hyperlipidemia, type 2 diabetes, chronic kidney disease, opacity. PLAN: To discharge home and to follow with the cardiology team for an outpatient stress testing. SHANNAN ALFARO MD DR: JANELLE/pallavi JOB#: [id number] / [id number]
== END 2017-10-25 13:55 | disposition home or self-care (01) | DRG 303 ==
LOC: ER 03:29 → 1 SOUTH 04:45
PROVIDERS: ADMIT Internal Medicine; ATTEND Internal Medicine
DX: I25.10 Atherosclerotic heart disease of native coronary artery without angina pectoris (principal); N18.4 Chronic kidney disease, stage 4 (severe); E11.22 Type 2 diabetes mellitus with diabetic chronic kidney disease; I27.20 Pulmonary hypertension, unspecified; I13.0 Hypertensive heart and chronic kidney disease with heart failure and stage 1 through stage 4 chronic kidney disease, or unspecified chronic kidney disease; I50.30 Unspecified diastolic (congestive) heart failure; E03.9 Hypothyroidism, unspecified; E66.9 Obesity, unspecified; E78.2 Mixed hyperlipidemia; G89.29 Other chronic pain; F17.210 Nicotine dependence, cigarettes, uncomplicated; Z82.49 Family history of ischemic heart disease and other diseases of the circulatory system; Z98.41 Cataract extraction status, right eye; Z98.42 Cataract extraction status, left eye; Z95.1 Presence of aortocoronary bypass graft; Z88.8 Allergy status to other drugs, medicaments and biological substances
CPT/HCPCS: 36415; 71045; 78582; 80048; 82947; 83880; 84484; 85025; 85379; 85610; 85730; 93005; 93306; 96374; 96375; A9540; A9558; J1815; J2060; J2270; 99285-25

== ENCOUNTER 2017-11-28 14:25 | Inpatient (IN) | payer MEDICARE, MEDICAID ==
[~2017-11-28] VITALS: Ht 157.5 cm; Wt 82.6 kg
[~2017-11-28 14:25] MED LIST changes: +ASPI-630 PO; +CHLO25TA PO; +CRAN405C PO; +CRAN500T2 PO; +CRESTOR20 MG PO; +GARL1TAB2 PO; +INSU100I30 SQ; +ISOS60TA2 PO; +LIRA0.6P2 SQ; +LOSA25TA4 PO; +MULT1TAB52 PO; +POTA10TA10 PO
--- NOTE | 2017-11-28 14:35 | EKG ---
[address] [address] Test Date: 2017-11-28 Test Time: 14:31:02 Pat Name: LENORA RENDON Department: Room: Gender: F Project Admin: ALEXIA : 1935 Requested By: YASMIN GOLD Order Number: [id number] Reading MD: Migue Huston MD Measurements Intervals [place] Rate: 79 P: 47 IA: 344 QRS: -19 QRSD: 86 T: 85 QT: 398 QTc: 457 Interpretive Statements SINUS RHYTHM VENTRICULAR PREMATURE COMPLEX(ES) PROLONGED IA INTERVAL Electronically Signed On 11-30-2017 9:10:53 CDT by Migue Huston MD
[2017-11-28] MEDS ORDERED: NITROGLYCERIN SUBLINGUAL 0.4 MG BOTTLE OF 25. SL PRN (15:00)
[2017-11-28 15:04] LABS: BASO % 0 % (0-3); EOS # 0.1 x10^3/uL (0.0-0.7); EOS % 1 % (0-3); HEMATOCRIT 35.2 % (36.0-47.0); HEMOGLOBIN 11.8 g/dL (12.0-15.5); LYMPH # 0.9 x10^3/uL (1.0-4.8); LYMPH % 8 % (24-48); MEAN CORPUSCULAR HEMOGLOBIN 29 pg (25-35); MEAN CORPUSCULAR HGB CONC 34 g/dL (31-37); MEAN CORPUSCULAR VOLUME 88 fL (79-100); MONO # 0.6 x10^3/uL (0.0-1.1); MONO % 5 % (0-9); NEUT # 9.8 x10^3uL (1.8-7.7); NEUT % 86 % (31-73); PLATELET COUNT 165 x10^3/uL (140-400); RED BLOOD COUNT 4.02 x10^6/uL (3.50-5.40); RED CELL DISTRIBUTION WIDTH 13.3 % (11.5-14.5); WHITE BLOOD COUNT 11.4 x10^3/uL (4.0-11.0)
--- NOTE | 2017-11-28 15:10 | RAD ---
EXAM: Chest, single view. HISTORY: Epigastric pain. COMPARISON: 10/24/2017 FINDINGS: A frontal view of the chest is obtained. There is no infiltrate, pleural effusion or pneumothorax. The heart is normal in size for portable technique. There is evidence of prior CABG. There are few calcified granulomas. IMPRESSION: No acute pulmonary finding. Electronically signed by: Letha Hernandez MD (11/28/2017 3:08 PM) [facility]
[2017-11-28 15:27] LABS: ALBUMIN 3.8 g/dL (3.4-5.0); ALBUMIN/GLOBULIN RATIO 0.9 (1.0-1.7); CALCIUM 10.3 mg/dL (8.5-10.1); CREATININE 1.9 mg/dL (0.6-1.0); GFR 25.2; MAGNESIUM 2.2 mg/dL (1.8-2.4); POTASSIUM 4.4 mmol/L (3.5-5.1); TOTAL BILIRUBIN 0.6 mg/dL (0.2-1.0); TOTAL PROTEIN 7.9 g/dL (6.4-8.2)
--- NOTE | 2017-11-28 15:52 | RAD ---
EXAM: Abdomen sonogram limited. HISTORY: Pain. TECHNIQUE: Sonographic imaging of the abdomen was performed. COMPARISON: None. FINDINGS: The liver is normal in size. No focal hepatic lesion is seen. There is sludge within the gallbladder. The common bile duct is normal in caliber. The right kidney is normal in size. There is a 1.7 cm right renal cyst. There is no hydronephrosis. The pancreas, aorta and inferior vena cava are unremarkable. IMPRESSION: 1. Gallbladder sludge. 2. Small right renal cyst. Electronically signed by: Letha Hernandez MD (11/28/2017 3:49 PM) [facility]
--- NOTE | 2017-11-28 16:23 | PHYS DOC ---
Past History Past Medical History: CAD, Diabetes, High Cholesterol, Hypertension Past Surgical History: Coronary Bypass Surgery, Other Smoking: Non-smoker Alcohol Use: None Drug Use: None Adult General Chief Complaint Chief Complaint: CHEST PAIN HPI HPI 81-year-old female patient with history of coronary artery disease status post CABG, hypertension, dyslipidemia, diabetes mellitus complaining of nonexertional substernal chest pain as a pressure pain that started at 1200 today with radiation to her back and associated with nausea and couple episodes of vomiting and shortness of breath without palpitation, dizziness, focal neuro deficit. Patient rated her pain 8/10 and states she took aspirin and GI medication and her pain decreased 4/10 at arrival to ER. Patient states she had the same chest pain about 1 month ago and had unremarkable states tests during her admission in this hospital. Review of Systems Review of Systems Constitutional: Denies fever or chills [] Eyes: Denies change in visual acuity, redness, or eye pain [] HENT: Denies nasal congestion or sore throat [] Respiratory: Denies cough or shortness of breath [] Cardiovascular: No additional information not addressed in HPI [] GI: Denies abdominal pain, nausea, vomiting, bloody stools or diarrhea [] : Denies dysuria or hematuria [] Musculoskeletal: Denies back pain or joint pain [] Integument: Denies rash or skin lesions [] Neurologic: Denies headache, focal weakness or sensory changes [] Endocrine: Denies polyuria or polydipsia [] All other systems were reviewed and found to be within normal limits, except as documented in this note. Current Medications Current Medications Current Medications Medications (Trade) Dose Ordered Sig/Charley Start Time Stop Time Status Last Admin Dose Admin Nitroglycerin (Nitrostat) 0.4 mg PRN Q5MIN PRN 11/28/17 15:00 11/29/17 14:59 11/28/17 15:10 0.4 MG Allergies Allergies Allergies Coded Allergies Type Severity Reaction Last Updated Verified codeine Allergy Intermediate nausea and vomiting 11/12/13 Yes Physical Exam Physical Exam Constitutional: Well developed, well nourished, mild distress, non-toxic appearance. [] HENT: Normocephalic, atraumatic, bilateral external ears normal, oropharynx moist, no oral exudates, nose normal. [] Eyes: PERRLA, EOMI, conjunctiva normal, no discharge. [] Neck: Normal range of motion, no tenderness, supple, no stridor. [] Cardiovascular:Heart rate regular rhythm, no murmur [] Lungs & Thorax: Bilateral breath sounds clear to auscultation [] Abdomen: Bowel sounds normal, soft, no tenderness, no masses, no pulsatile masses. [] Skin: Warm, dry, no erythema, no rash. [] Back: No tenderness, no CVA tenderness. [] Extremities: No tenderness, no cyanosis, no clubbing, ROM intact, bilateral lower extremity chronic edema, more in the left side Neurologic: Alert and oriented X 3, normal motor function, normal sensory function, no focal deficits noted. [] Psychologic: Affect normal, judgement normal, mood normal. [] Current Patient Data Vital Signs Vital Signs Date Time Temp Pulse Resp B/P (MAP) Pulse Ox O2 Delivery O2 Flow Rate FiO2 11/28/17 16:12 86 18 157/83 (107) 98 Room Air 11/28/17 14:49 97.9 Lab Results Laboratory Tests Test 11/28/17 14:43 White Blood Count 11.4 x10^3/uL (4.0-11.0) H Red Blood Count 4.02 x10^6/uL (3.50-5.40) Hemoglobin 11.8 g/dL (12.0-15.5) L Hematocrit 35.2 % (36.0-47.0) L Mean Corpuscular Volume 88 fL (79-100) Mean Corpuscular Hemoglobin 29 pg (25-35) Mean Corpuscular Hemoglobin Concent 34 g/dL (31-37) Red Cell Distribution Width 13.3 % (11.5-14.5) Platelet Count 165 x10^3/uL (140-400) Neutrophils (%) (Auto) 86 % (31-73) H Lymphocytes (%) (Auto) 8 % (24-48) L Monocytes (%) (Auto) 5 % (0-9) Eosinophils (%) (Auto) 1 % (0-3) Basophils (%) (Auto) 0 % (0-3) Neutrophils # (Auto) 9.8 x10^3uL (1.8-7.7) H Lymphocytes # (Auto) 0.9 x10^3/uL (1.0-4.8) L Monocytes # (Auto) 0.6 x10^3/uL (0.0-1.1) Eosinophils # (Auto) 0.1 x10^3/uL (0.0-0.7) Basophils # (Auto) 0.0 x10^3/uL (0.0-0.2) Prothrombin Time 11.3 SEC (9.4-11.4) Prothrombin Time INR 1.1 (0.9-1.1) Sodium Level 139 mmol/L (136-145) Potassium Level 4.4 mmol/L (3.5-5.1) Chloride Level 104 mmol/L (98-107) Carbon Dioxide Level 26 mmol/L (21-32) Anion Gap 9 (6-14) Blood Urea Nitrogen 42 mg/dL (7-20) H Creatinine 1.9 mg/dL (0.6-1.0) H Estimated GFR (Cockcroft-Gault) 25.2 BUN/Creatinine Ratio 22 (6-20) H Glucose Level 195 mg/dL (70-99) H Calcium Level 10.3 mg/dL (8.5-10.1) H Magnesium Level 2.2 mg/dL (1.8-2.4) Total Bilirubin 0.6 mg/dL (0.2-1.0) Aspartate Amino Transferase (AST) 38 U/L (15-37) H Alanine Aminotransferase (ALT) 40 U/L (14-59) Alkaline Phosphatase 71 U/L (46-116) Creatine Kinase 129 U/L (26-192) Creatine Kinase MB (Mass) 1.4 ng/mL (0.0-3.6) Creatine Kinase MB Relative Index 1.1 % (0-4) Troponin I Quantitative 0.060 ng/mL (0-0.055) H FJ-Eef-Z-Type Natriuretic Peptide 665 pg/mL (0-449) H Total Protein 7.9 g/dL (6.4-8.2) Albumin 3.8 g/dL (3.4-5.0) Albumin/Globulin Ratio 0.9 (1.0-1.7) L Lipase 328 U/L (73-393) EKG EKG EKG interpreted by me. EKG at 1431 showed sinus rhythm at rate of 79 beats PVCs , prolonged AR at 344, left fourth axis, T abnormality in lateral leads, no acute distress and T-wave abnormalities,[] Radiology/Procedures Radiology/Procedures [][address] [address] IMAGING REPORT Signed PATIENT: LENORA RENDON ACCOUNT: [id number] : 1935 LOCATION: ER AGE: 81 SEX: F EXAM STATUS: REG ER ORD. PHYSICIAN: YASMIN GOLD MD REASON: chest pain PROCEDURE: PORTABLE CHEST 1V EXAM: Chest, single view. HISTORY: Epigastric pain. COMPARISON: 10/24/2017 FINDINGS: A frontal view of the chest is obtained. There is no infiltrate, pleural effusion or pneumothorax. The heart is normal in size for portable technique. There is evidence of prior CABG. There are few calcified granulomas. IMPRESSION: No acute pulmonary finding. Electronically signed by: Letha Munroe MD (11/28/2017 3:08 PM) [place] [id number] DICTATED AND SIGNED BY: LETHA MUNROE MD DATE: 11/28/17 1505 CC: ALESHIA RODRIGUEZ MD; YASMIN GOLD MD ~ [address] [address] IMAGING REPORT Signed PATIENT: LENORA RENDON ACCOUNT: [id number] : 1935 LOCATION: ER AGE: 81 SEX: F EXAM STATUS: REG ER ORD. PHYSICIAN: YASMIN GOLD MD REASON: chest and epigastric pain PROCEDURE: ABDOMEN LTD EXAM: Abdomen sonogram limited. HISTORY: Pain. TECHNIQUE: Sonographic imaging of the abdomen was performed. COMPARISON: None. FINDINGS: The liver is normal in size. No focal hepatic lesion is seen. There is sludge within the gallbladder. The common bile duct is normal in caliber. The right kidney is normal in size. There is a 1.7 cm right renal cyst. There is no hydronephrosis. The pancreas, aorta and inferior vena cava are unremarkable. IMPRESSION: 1. Gallbladder sludge. 2. Small right renal cyst. Electronically signed by: Letha Munroe MD (11/28/2017 3:49 PM) [facility] DICTATED AND SIGNED BY: LETHA MUNROE MD DATE: 11/28/17 1548 CC: ALESHIA RODRIGUEZ MD; YASMIN GOLD MD ~ Course & Med Decision Making Course & Med Decision Making Pertinent Labs and Imaging studies reviewed. (See chart for details) Evaluation of patient in ER showed 80-year-old female patient with multiple risk factors and complaining of chest pain. Patient had mild elevation of troponin and chronic renal insufficiency with increase of calcium to 10.3. Ultrasound of gallbladder showed gallbladder sludge. Patient's pain resolved with nitroglycerin [address] Taveras accepted admission at 1611. [] Dragon Disclaimer Dragon Disclaimer This electronic medical record was generated, in whole or in part, using a voice recognition dictation system. Departure Departure: Impression: Primary Impression: Acute chest pain Additional Impressions: Elevated troponin Serum calcium elevated Chronic renal insufficiency Uncontrolled diabetes mellitus Gallbladder sludge Disposition: 09 ADMITTED INPATIENT (At 1612) Admitting Physician: El Taveras (accepted admission at 1611) Condition: IMPROVED Referrals: ALESHIA RODRIGUEZ MD (PCP) Problem Qualifiers YASMIN GOLD MD Nov 28, 2017 16:23
[2017-11-28 17:37] LABS: BACTERIA,URINE 0 /HPF (0-FEW); BILIRUBIN,URINE NEG (NEG); CLARITY,URINE CLEAR; COLOR,URINE YELLOW; GLUCOSE,URINE NEG (NEG); NITRITE,URINE NEG (NEG); SQUAMOUS EPITHELIAL CELL,UR FEW /LPF; UROBILINOGEN,URINE 0.2 mg/dL (0.2 mg/dL)
[2017-11-28 19:47] VITALS: BP 149/69
[2017-11-28] MEDS ORDERED: DEXTROSE 50% 25 GM / 50ML DISP.SYRIN. IV PRN (20:15)
[2017-11-28] MEDS ORDERED: ATORVASTATIN CALCIUM 20 MG TABLET PO SCH (21:00)
[2017-11-28] MEDS ORDERED: INSULIN GLARGINE 300 UNITS/3 ML INSULN.PEN. SQ SCH (21:00)
[2017-11-28 23:35] VITALS: BP 128/60
[2017-11-29 05:27] VITALS: BP 144/70
[2017-11-29] MEDS ORDERED: LEVOTHYROXINE 88 MCG TABLET PO SCH (07:30)
[2017-11-29] MEDS ORDERED: POTASSIUM CHLORIDE 20 MEQ TABLET.ER. PO SCH (08:00)
[2017-11-29] MEDS: INSULIN LISPRO 300 UNITS/3 ML INSULN.PEN. SQ SCH ×2 (08:00→11:51)
[2017-11-29] MEDS ORDERED: ISOSORBIDE MONONITRATE ER 30 MG TAB.ER.24H PO SCH (09:00)
[2017-11-29] MEDS ORDERED: CHLORTHALIDONE 25 MG TABLET PO SCH (09:00)
[2017-11-29] MEDS ORDERED: NON FORMULARY ITEM (Liraglutide (Victoza 3-Pak) 0.6 MG) SQ SCH (09:00)
[2017-11-29] MEDS ORDERED: NON FORMULARY ITEM (Cranberry Extract (Cranberry) 500 MG) PO SCH (09:00)
[2017-11-29 10:33] VITALS: BP 146/69
[2017-11-29 15:08] VITALS: BP 145/56
--- NOTE | 2017-11-29 15:36 | PDOC2 ---
DEVANG DAHL CLOTH CHECKER 11/29/17 1536: CONSULT Date of Admission DATE: 11/29/17 TIME: 15:25 Reason for Consult: Chest pain Referring Physician: dr Taveras Problem List Problems Medical Problems: (1) Acute chest pain Status: Acute (2) Chronic renal insufficiency Status: Acute (3) Elevated troponin Status: Acute (4) Gallbladder sludge Status: Acute (5) Serum calcium elevated Status: Acute (6) Uncontrolled diabetes mellitus Status: Acute History of Present Illness This is a 81 year old female who presented to the emergency room via EMS with chief complaint of epigastric/chest pain. This patient has a history of coronary artery disease with previous bypass surgery, hypertension, hyperlipidemia and diabetes mellitus, type II. She had been up packing her apartment yesterday and when she sat to rest she developed epigastric pain with nausea and vomited once. She got up and took some Tums and 2 aspirin and did help with the pain. Came to ER and pain was resolving and then they gave her one Nitro she is unsure that is helped. 1st two sets of enzymes were negative with the 3rd being borderline in the presence of CKd. Since admission she is pain free. Her breathing is back to baseline. She has been having more belching and GERd symptoms. She had not noticed any recent change in function. She denies any palpitations, lightheadedness, PND or orthopnea. Allergies CODEINE: Vomiting (Mild to moderate) COREG: Itching (Mild to moderate) SIMVASTATIN: Hives (Mild to moderate) SULFASALAZINE: Itching (Mild to moderate) Medications aspirin 81 mg tablet Daily chlorthalidone 12.5 mg daily levothyroxine 88 mcg daily losartan 50 mg daily NIFEdipine ER 60 mg tablet,extended release 1 tablet twice a day potassium chloride ER 10 mEq capsule,extended release daily rosuvastatin 20 mg tablet daily Tresiba FlexTouch U-100 insulin 100 unit/mL (3 mL) subcutaneous pen Victoza 2-Sylvain 0.6 mg/0.1 mL (18 mg/3 mL) subcutaneous pen injector INJECT 1.2 MG BY SUBCUTANEOUS ROUTE ONCE DAILY Family History - Her father and her son had coronary artery disease. Her daughter and her son have diabetes mellitus Social History Occupation: retired Marital status: Live alone or with others?: alone Number of children: 3 Diet: Regular Exercise level: Occasional Smoking Status: Former smoker Smoker (1/2 PPD) Tobacco-years of use: 15 Alcohol intake: None Caffeine intake: Occasional Past Medical/ Surgical History Coronary Artery Disease: Y High Cholesterol: Y Hypertension: Y Valvular Heart Disease: Y Chronic Kidney Disease: Y Diabetes: Y Review of systems- review of 10 organ systems is negative except for as in history of present illness. Physical Exam Patient is an 81-year-old female. GENERAL: This is a well developed, well nourished female. No apparent distress. SKIN: Warm and dry with normal skin turgor. Negative for pallor. No lesions or rashes noted. EYES: Conjunctiva are clear. Extraocular movements are intact. No xanthelasma. HEAD AND NECK: Oral mucosa is moist. There is no cyanosis. Neck is supple. Jugular venous pressure is flat. Carotid pulses are 2/2 bilaterally. No carotid bruits. There is no obvious thyromegaly. HEART: Regular rate and rhythm. Normal S1 and S2. No S3. No S4. + systolic murmur LUNGS: Effort is good. There is symmetric expansion bilaterally. Clear to auscultation bilaterally. No wheezes. No crackles. No rhonchi. ABDOMEN: Normal active bowel sounds. Soft. Nontender. EXTREMITIES: No clubbing. No cyanosis. +1 edema of lower extremities left greater than right. + red/warm MUSCULOSKELETAL: No kyphosis. No scoliosis. No localized tenderness or stiffness. Gait appears normal. NEUROLOGIC: Alert and oriented times three. Cranial nerves III-XII are grossly intact. Good motor tone and strength in the upper and lower extremities bilaterally. PSYCHOLOGIC: This is a pleasant patient with a normal affect. Procedure: Nuclear stress test 11/11/2017 - Normal Perfusion ECHOCARDIOGRAM IMPRESSION (05/16/2017):. There is mild concentric left ventricular hypertrophy. The left ventricular systolic function is normal with a visually estimated ejection fraction of >65%. There is evidence of fixed left ventricular restrictive filling suggestive of stage IV diastolic dysfunction. The left atrium appears moderately dilated. The right atrium appears moderately dilated. The proximal ascending aorta appears mildly dilated at 3.5 cm. There is mild aortic stenosis with a mean gradient of 7 mmHg, a peak gradient of 15 mmHg, a peak velocity of 2 m/s and a calculated aortic valve area of 1.6 cm2. There is mild mitral annular calcification. There is moderate mitral regurgitation. There is moderate mitral and tricuspid regurgitation. The estimated pulmonary artery systolic pressure is 45 mmHg, consistent with mild pulmonary hypertension. Compared to the report (images were not available for review) of the study dated 05/15/2016, the left ventricular hypertrophy, the dilatation of the left atrium and the aortic stenosis were not noted on the previous study. LEXISCAN NUCLEAR STRESS TEST IMPRESSION (10/31/2016): Normal myocardial perfusion scan The summed stress score is zero. There is evidence of breast tissue attenuation artifact Normal left ventricular systolic function Ejection fraction: 70%. There is no stress induced left ventricular dilatation or increase in lung to heart ratio. There were no stress induced ECG changes. There were premature ventricular complexes and the patient had atrial fibrillation throughout. There was no stress induced chest pain. Compared to the report (images were not available for review) from the previous study performed on 04/16/2013, there was no significant change. CAROTID DUPLEX 04/17/13: Mild disease in carotid bulb, ICA, ECA. No significant flow limiting lesions in carotid bulb, ICA, ECA, CCA The left vertebrals antegrade flow. Assessment / Plan Chest pain - her troponin is mildly elevated but not significant in the presence of chronic kidney disease. Likely related to GI - Plan for trial of Protonix. Recent nuclear stress test showed normal perfusion. Her EKG does not show any acute ischemic changes. Coronary artery disease with previous coronary bypass surgery in 2004. Continue optimal medical therapy. Hypertension with CKD, controlled. Continue anti-hypertensive medications. Hyperlipidemia. Her goal LDL is < 70 mg/dL. 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 Diabetes Mellitus, type II - treatment per primary care provider. Chronic kidney disease, Stage 4 - at 25% on last lab. Obesity, Body Mass Index - 32. Lifestyle modification with exercise, diet and weight loss recommended. Current Medications Current Medications Nitroglycerin (Nitrostat) 0.4 mg PRN Q5MIN PRN SL CP RATING > 1/10 Last administered on 11/28/17at 15:10; Start 11/28/17 at 15:00; Stop 11/29/17 at 15:00; Status DC Levothyroxine Sodium (Synthroid) 88 mcg DAILYAC PO Last administered on at 08:51; Start 11/29/17 at 07:30 Chlorthalidone (Thalitone) 25 mg DAILY PO Last administered on 11/29/17at 08:52; Start 11/29/17 at 09:00 Non-Formulary Medication (Cranberry Extract (Cranberry)) 500 mg DAILY PO ; Start 11/29/17 at 09:00; Stop 11/29/17 at 09:00; Status DC Insulin Glargine (Lantus) 30 units QHS SQ Last administered on 11/28/17at 21:57; Start 11/28/17 at 21:00 Isosorbide Mononitrate (Imdur) 60 mg DAILY PO Last administered on 11/29/17at 08: 53; Start 11/29/17 at 09:00 Non-Formulary Medication (Liraglutide (Victoza 3-Sylvain)) 0.6 mg DAILY SQ ; Start 11/29/17 at 09:00; Status UNV Nifedipine (Procardia Xl) 60 mg BID PO Last administered on 11/29/17at 08:52; Start 11/28/17 at 21:00 Potassium Chloride (Klor-Con) 20 meq BIDWMEALS PO Last administered on at 08:51; Start 11/29/17 at 08:00 Atorvastatin Calcium (Lipitor) 80 mg QHS PO Last administered on 11/28/17at 21:56 ; Start 11/28/17 at 21:00 Insulin Human Lispro (HumaLOG) 0-5 UNITS TIDWMEALS SQ Last administered on at 11:51; Start 11/29/17 at 08:00 Dextrose 12.5 gm PRN Q15MIN PRN IV SEE COMMENTS; Start 11/28/17 at 20:15 Pantoprazole Sodium (Protonix) 40 mg DAILYAC PO ; Start 11/30/17 at 07:30; Status UNV Active Scripts Active Isosorbide Mononitrate Er (Isosorbide Mononitrate) 60 Mg Tab.er.24h 1 Tab PO DAILY Reported Cranberry (Cranberry Extract) 500 Mg Tablet 500 Mg PO DAILY NEXT DOSE DUE: DATE: RESTART TOMORROW TIME: AM NEXT DOSE DUE: DATE: TIME: Victoza 3-Sylvain (Liraglutide) 0.6 Mg/0.1 Ml Pen.injctr 0.6 Mg SQ DAILY NOT GIVEN IN THE HOSPITAL NEXT DOSE DUE: DATE: RESTART TOMORROW TIME: AM DATE: TIME: Tresiba Flextouch U-100 (Insulin Degludec) 100 Unit/1 Ml Insuln.pen 30 Unit SQ HS LAST DOSE GIVEN: DATE: LANTUS GIVEN YESTERDAY TIME: AT BEDTIME NEXT DOSE DUE: DATE: TODAY TIME: AT BEDTIME Potassium Chloride 10 Meq Tablet.er 20 Meq PO BID LAST DOSE GIVEN: DATE: TODAY TIME: AM NEXT DOSE DUE: DATE: TODAY TIME: PM Crestor (Rosuvastatin Calcium) 20 Mg Tablet 1 Tab PO HS LAST DOSE GIVEN: DATE: TODAY TIME: AM NEXT DOSE DUE: DATE: TOMORROW TIME: AT BEDTIME Losartan Potassium 25 Mg Tablet 25 Mg PO DAILY LAST DOSE GIVEN: DATE: TODAY TIME: AM NEXT DOSE DUE: DATE: TOMORROW TIME: AM Chlorthalidone 25 Mg Tablet 25 Mg PO DAILY LAST DOSE GIVEN: DATE: TODAY TIME: AM NEXT DOSE DUE: DATE: TOMORROW TIME: AM Nifedipine Er (Nifedipine) 60 Mg Tab.er.24 60 Mg PO BID LAST DOSE GIVEN: DATE: TIME: AM NEXT DOSE DUE: DATE: TODAY TIME: PM Levothyroxine Sodium 88 Mcg Tablet 88 Mcg PO DAILYAC LAST DOSE GIVEN: DATE: TODAY TIME: BEFORE BREAKFAST NEXT DOSE DUE: DATE: TOMORROW TIME: BEFORE BREAKFAST Allergies: Coded Allergies: codeine (Verified Allergy, Intermediate, nausea and vomiting, 11/12/13) VITALS Vital Signs Date Time Temp Pulse Resp B/P (MAP) Pulse Ox O2 Delivery O2 Flow Rate FiO2 11/29/17 15:08 98.1 79 20 145/56 (85) 95 Room Air Labs Laboratory Tests Test 11/28/17 14:43 11/28/17 17:00 11/28/17 19:23 11/28/17 21:44 White Blood Count 11.4 x10^3/uL (4.0-11.0) Red Blood Count 4.02 x10^6/uL (3.50-5.40) Hemoglobin 11.8 g/dL (12.0-15.5) Hematocrit 35.2 % (36.0-47.0) Mean Corpuscular Volume 88 fL (79-100) Mean Corpuscular Hemoglobin 29 pg (25-35) Mean Corpuscular Hemoglobin Concent 34 g/dL (31-37) Red Cell Distribution Width 13.3 % (11.5-14.5) Platelet Count 165 x10^3/uL (140-400) Neutrophils (%) (Auto) 86 % (31-73) Lymphocytes (%) (Auto) 8 % (24-48) Monocytes (%) (Auto) 5 % (0-9) Eosinophils (%) (Auto) 1 % (0-3) Basophils (%) (Auto) 0 % (0-3) Neutrophils # (Auto) 9.8 x10^3uL (1.8-7.7) Lymphocytes # (Auto) 0.9 x10^3/uL (1.0-4.8) Monocytes # (Auto) 0.6 x10^3/uL (0.0-1.1) Eosinophils # (Auto) 0.1 x10^3/uL (0.0-0.7) Basophils # (Auto) 0.0 x10^3/uL (0.0-0.2) Prothrombin Time 11.3 SEC (9.4-11.4) Prothromb Time International Ratio 1.1 (0.9-1.1) Sodium Level 139 mmol/L (136-145) Potassium Level 4.4 mmol/L (3.5-5.1) Chloride Level 104 mmol/L (98-107) Carbon Dioxide Level 26 mmol/L (21-32) Anion Gap 9 (6-14) Blood Urea Nitrogen 42 mg/dL (7-20) Creatinine 1.9 mg/dL (0.6-1.0) Estimated GFR (Cockcroft-Gault) 25.2 BUN/Creatinine Ratio 22 (6-20) Glucose Level 195 mg/dL (70-99) Calcium Level 10.3 mg/dL (8.5-10.1) Magnesium Level 2.2 mg/dL (1.8-2.4) Total Bilirubin 0.6 mg/dL (0.2-1.0) Aspartate Amino Transf (AST/SGOT) 38 U/L (15-37) Alanine Aminotransferase (ALT/SGPT) 40 U/L (14-59) Alkaline Phosphatase 71 U/L (46-116) Creatine Kinase 129 U/L (26-192) Creatine Kinase MB (Mass) 1.4 ng/mL (0.0-3.6) Creatine Kinase MB Relative Index 1.1 % (0-4) Troponin I Quantitative 0.060 ng/mL (0-0.055) 0.040 ng/mL (0-0.055) ZV-Abc-Q-Type Natriuretic Peptide 665 pg/mL (0-449) Total Protein 7.9 g/dL (6.4-8.2) Albumin 3.8 g/dL (3.4-5.0) Albumin/Globulin Ratio 0.9 (1.0-1.7) Lipase 328 U/L (73-393) Urine Collection Type Unknown Urine Color Yellow Urine Clarity Clear Urine pH 7.5 Urine Specific [place] 1.020 Urine Protein >100 mg/dl (NEG-TRACE) Urine Glucose (UA) Neg mg/dL (NEG) Urine Ketones (Stick) Neg mg/dL (NEG) Urine Blood Trace (NEG) Urine Nitrite Neg (NEG) Urine Bilirubin Neg (NEG) Urine Urobilinogen Dipstick 0.2 mg/dL (0.2 mg/dL) Urine Leukocyte Esterase Neg (NEG) Urine RBC 3-5 /HPF (0-2) Urine WBC 1-4 /HPF (0-4) Urine Squamous Epithelial Cells Few /LPF Urine Bacteria 0 /HPF (0-FEW) Glucose (Fingerstick) 241 mg/dL (70-99) Test 11/28/17 22:15 11/29/17 07:24 11/29/17 11:22 Troponin I Quantitative 0.046 ng/mL (0-0.055) Glucose (Fingerstick) 115 mg/dL (70-99) 215 mg/dL (70-99) MARYBETH GRAYSON Jr, MD 12/01/17 0618: CONSULT Assessment/Plan The patient was seen by Devang Dahl APRN and I have reviewed her findings and plan and agree with above. Due to staffing constraints, we did not have an attending available on this day to see the patient. MD ZORAN Jacosbon Jr., JANAE M APRN Nov 29, 2017 15:36 MARYBETH GRAYSON Jr, MD Dec 01, 2017 06:18
--- NOTE | 2017-11-29 22:27 | HP ---
ADMIT DATE: 11/29/2017 HISTORY OF PRESENT ILLNESS: The patient is an 81-year-old female patient who came complaining of nonexertional substernal chest pain as a pressure pain that started about 12:00 yesterday with radiation to her back and associated with nausea, a couple of episodes of vomiting, shortness of breath without palpitation, dizziness, focal neuro deficit, or diaphoresis. She rated the pain as about 8/10 and states she took aspirin and GI medication. Her pain decreased to 4/10 on arrival to the Emergency Room. She states she has similar chest pain about a month ago and had an unremarkable test during that admission in this hospital. She was basically investigated in the Emergency Room. Has had cardiac enzyme with troponin to be slightly elevated at 0.04. Her white cell count is slightly elevated at 11.4. Her liver enzyme is slightly elevated and therefore the patient has abdominal sonogram, which showed that the liver is normal in size. No focal hepatic lesion is seen. There is sludge within the gallbladder. The common bile duct is normal in caliber. The right kidney is normal in size. There is a 1.7 cm right renal cyst. There is no hydronephrosis. Pancreas, aorta, and inferior vena cava are unremarkable and the patient was admitted to do 2 more sets of cardiac enzyme and to consult the cardiology team. PAST MEDICAL HISTORY: Significant for type 2 diabetes, hypertension, hyperlipidemia, chronic kidney disease, hypothyroidism, osteoarthritis, chronic back pain, recurrent left lower extremity cellulitis. PAST SURGICAL HISTORY: Significant for bilateral cataract extraction, coronary artery bypass graft surgery x 5, left carotid endarterectomy and back surgery. ALLERGIES: She is allergic to CODEINE. FAMILY HISTORY: She has 2 sisters, both older, one diseased because of overdose and the other still alive. One brother, younger, also has stent in his heart. Her father at the age of 56 because of cerebral hemorrhage. Mother at the age of 73 because of myocardial infarction. SOCIAL HISTORY: She lives alone. She has 1 daughter and 1 son. She is an ex-smoker, quit in 1979. She does not drink alcohol. MEDICATIONS: She is currently on following medications: She is on Crestor 20 mg at bedtime, isosorbide mononitrate 60 mg once a day, nifedipine 60 mg twice a day, losartan potassium 25 mg once a day, potassium chloride 20 mEq twice a day, chlorthalidone 25 mg daily, liraglutide for Victoza 0.6 mg subcutaneously daily. She is on insulin degludec for Tresiba which she takes 30 units subcutaneously at bedtime, levothyroxine sodium 88 mcg once a day, cranberry extract 500 mg once a day. REVIEW OF SYSTEMS: The patient denied any blurring of vision, cataracts. She has bilateral cataract extraction. Denied any glaucoma or macular degeneration. Denied any earache, tinnitus, or sensorineural deafness. Denied any nosebleeds, stuffy nose, or postnasal drip. Denied any sore throat, sore tongue, toothache, hoarseness of voice, or difficulty swallowing. Did have some nausea and vomiting, but denied any diarrhea or constipation. Denied any hematemesis, melena, or hematochezia. Denied any dysuria, frequency, or hematuria. Did complain of chest pain, but denied any shortness of breath, orthopnea, paroxysmal nocturnal dyspnea. Denied any cough, phlegm, or hemoptysis. Denied any chills, rigors, or fever. PHYSICAL EXAMINATION: GENERAL: On arrival to the Emergency Room, she looked well and was clearly in no apparent respiratory distress. VITAL SIGNS: Her heart rate was 62, blood pressure was 127/70, temperature was 97.9, respiratory rate was 18, and oxygen saturation was 95%. HEAD, EYES, EARS, NOSE, AND THROAT: Showed normocephalic, atraumatic. NECK: Supple. HEART: Showed normal first and second heart sounds. No gallop, rub, or murmur. CHEST: Clear to auscultation. No crepitation or rhonchi. ABDOMEN: Distended, soft, nontender. NEUROLOGIC: She is awake, alert, responding appropriately. Cranial nerves are intact. She moves extremities without difficulty. She ambulates with a walker. She has marked bilateral extremity, more so on the left than the right, the leg that they harvested the vein for her bypass surgery and continued to have recurrent episode of cellulitis. LABORATORY DATA: On arrival to the Emergency Room, her white cell count was 11,400, hemoglobin 12, hematocrit 35, MCV 88 and platelet count of 165,000. Her chemistry showed a serum sodium of 139, potassium 4.4, chloride 104, bicarbonate 42, creatinine 1.9, estimated GFR was 25 mL per minute. Her glucose was 195, calcium was 7.3, magnesium 2.2. Total bilirubin, AST, ALT slightly elevated. Alkaline phosphatase normal. Her total protein was 7.9, albumin 3.8. Lipase was 328. Her first set of troponin was 0.060. Her urinalysis showed the urine was yellow, clear with a pH of 7.5, specific gravity of 1.020, large amount of protein. The urine was negative for glucose and ketones, trace of blood, negative for nitrite and leukocyte esterase. The urine showed 3-5 rbc's per high power field, 1-4 wbc's, and no bacteria. She has had an ultrasound of her abdomen, which showed that there is gallbladder sludge, small right renal cyst, and her chest x-ray showed that there is no infiltrate, pleural effusion, or pneumothorax. The heart is normal in size for portable technique. There is evidence of prior CABG and there are few calcified granulomas. PLAN: The patient will be admitted. We will do 2 more sets of cardiac enzymes, consult the cardiology team and decide on further management accordingly. SHANNAN ALFARO MD DR: JANELLE/pallavi JOB#: [id number] / [id number]
--- NOTE | 2017-11-29 22:28 | DS ---
DATE OF DISCHARGE: 11/29/2017 HOSPITAL COURSE: The patient is an 81-year-old female patient who came with complaint of chest pressure. She was evaluated in the Emergency Room and has had 3 sets of cardiac enzymes that are slightly elevated. She was evaluated by the Cardiology team and she has recently a stress test as an outpatient was normal. They recommended the patient to be safely discharged and to arrange for her to be seen by tuck pointer helper and perhaps also arrange hepatobiliary scan for biliary dyskinesia. PHYSICAL EXAMINATION: GENERAL: When I saw her this afternoon, she was sitting on the edge of the bed comfortably in no apparent distress. No pallor, jaundice, cyanosis or thyromegaly. No jugular venous distention. No limb edema. VITAL SIGNS: Her heart rate was 79, blood pressure 145/56, temperature was 98.1, respiratory rate 20, and oxygen saturation was 95%. The rest of clinical examination is unremarkable. DISCHARGE MEDICATIONS: She was discharged home to continue all her medication that include Protonix 40 mg once a day, Victoza 0.6 mg subcutaneously daily, isosorbide mononitrate 60 mg daily, chlorthalidone 25 mg daily. She is on levothyroxine 88 mcg daily, atorvastatin 80 mg at bedtime, nifedipine 60 mg twice a day, and she is also on Tresiba 30 units at bedtime. FINAL DISCHARGE DIAGNOSES: Chest pain, myocardial infarction was ruled out. Other medical problems include hypertension, hyperlipidemia, hypothyroidism, type 2 diabetes, chronic kidney disease, obesity. SHANNAN ALFARO MD DR: JANELLE/pallavi JOB#: [id number] / [id number]
--- NOTE | 2017-11-30 01:42 | PN ---
DATE: 11/29/2017 SUBJECTIVE: The patient is sitting in the edge of the bed comfortably in no apparent respiratory distress. She has no more episode of chest pain, no shortness of breath. Her lab work showed that her troponin was initially 0.060 and went down to 0.040, ____ was 0.46. PHYSICAL EXAMINATION: GENERAL: When I examined her, she looked well and was clearly in no apparent respiratory distress, pale, but no jaundice, cyanosis, or thyromegaly. No jugular venous distension. No limb edema. VITAL SIGNS: Her heart rate was 73, blood pressure 146/69, temperature was 97.7, respiratory rate was 20, and oxygen saturation was 97%. The rest of clinical exam is unremarkable. ASSESSMENT AND PLAN: We will wait for the Cardiology team to evaluate the patient and decide on further management. The patient came with retrosternal chest pain that lasted almost 3 hours. Her cardiac enzymes are slightly elevated. She has, however, also impaired kidney function, so whether this is non-ST segment elevation myocardial infarction or ____ finding in a patient with impaired kidney function remains to be seen, we will await the evaluation by the Cardiology team. SHANNAN ALFARO MD DR: JANELLE/pallavi JOB#: [id number] / [id number]
[2017-11-30] MEDS ORDERED: PANTOPRAZOLE 40 MG TABLET. PO SCH (07:30)
== END 2017-11-29 16:16 | disposition home or self-care (01) | DRG 206 ==
LOC: ER 14:25 → 1 SOUTH 17:06
PROVIDERS: ADMIT Internal Medicine; ATTEND Internal Medicine
DX: M94.0 Chondrocostal junction syndrome [Tietze] (principal); E11.22 Type 2 diabetes mellitus with diabetic chronic kidney disease; E03.9 Hypothyroidism, unspecified; E66.9 Obesity, unspecified; E78.5 Hyperlipidemia, unspecified; Z68.33 Body mass index [BMI] 33.0-33.9, adult; M54.9 Dorsalgia, unspecified; G89.29 Other chronic pain; M19.90 Unspecified osteoarthritis, unspecified site; F17.210 Nicotine dependence, cigarettes, uncomplicated; E78.00 Pure hypercholesterolemia, unspecified; N18.9 Chronic kidney disease, unspecified; N28.1 Cyst of kidney, acquired; I25.10 Atherosclerotic heart disease of native coronary artery without angina pectoris; I12.9 Hypertensive chronic kidney disease with stage 1 through stage 4 chronic kidney disease, or unspecified chronic kidney disease; E11.69 Type 2 diabetes mellitus with other specified complication; Z82.49 Family history of ischemic heart disease and other diseases of the circulatory system; Z98.41 Cataract extraction status, right eye; Z95.1 Presence of aortocoronary bypass graft; Z98.42 Cataract extraction status, left eye; Z88.5 Allergy status to narcotic agent; Z79.899 Other long term (current) drug therapy
CPT/HCPCS: 36415; 71045; 76705; 80053; 81001; 82553; 82947; 83690; 83735; 83880; 84484; 85025; 85610; 93005; J1815; 99285-25

== ENCOUNTER 2018-04-18 12:52 | Inpatient (IN) | payer MEDICARE, MEDICAID ==
[2018-04-18] VITALS (10 sets, daily range): BP systolic 157–190; BP diastolic 57–85
[~2018-04-18] VITALS: Ht 157.5 cm; Wt 83.5 kg
[~2018-04-18 12:52] MED LIST changes: +HYDR-3165 PO; -HYDR-971 PO; -LOSA25TA4 PO; +LOSA25TA5 PO
--- NOTE | 2018-04-18 13:13 | PHYS DOC ---
Past History Past Medical History: CAD, Diabetes, High Cholesterol, Hypertension Past Surgical History: Coronary Bypass Surgery, Other Smoking: Non-smoker Alcohol Use: None Drug Use: None Adult General Chief Complaint Chief Complaint: SHORTNESS OF BREATH HPI HPI Patient is a 82 year old female who presents with chest pain and difficulty breathing. This started approximately 30 minutes prior to arrival. Patient was forced to walk upstairs to her third-floor apartment since elevators were broken. On finishing this chest pain developed. Patient was not HCA did with this and did have an episode of emesis. No radiation of the discomfort. Patient has previous history of coronary artery bypass graft. Discomfort does improve with rest but does not go entirely away. Patient has taken no medicine for the discomfort. Reports that the discomfort is mild at this time. [] Review of Systems Review of Systems Constitutional: Denies fever or chills [] Eyes: Denies change in visual acuity, redness, or eye pain [] HENT: Denies nasal congestion or sore throat [] Respiratory: Denies cough or shortness of breath [] Cardiovascular: No additional information not addressed in HPI [] GI: Denies abdominal pain, nausea, vomiting, bloody stools or diarrhea [] : Denies dysuria or hematuria [] Musculoskeletal: Denies back pain or joint pain [] Integument: Denies rash or skin lesions [] Neurologic: Denies headache, focal weakness or sensory changes [] Endocrine: Denies polyuria or polydipsia [] All other systems were reviewed and found to be within normal limits, except as documented in this note. Allergies Allergies Allergies Coded Allergies Type Severity Reaction Last Updated Verified codeine Allergy Intermediate nausea and vomiting 11/12/13 Yes Physical Exam Physical Exam Constitutional: Well developed, well nourished, no acute distress, non-toxic appearance. [] HENT: Normocephalic, atraumatic, bilateral external ears normal, oropharynx moist, no oral exudates, nose normal. [] Eyes: PERRLA, EOMI, conjunctiva normal, no discharge. [] Neck: Normal range of motion, no tenderness, supple, no stridor. [] Cardiovascular:Heart rate regular rhythm, no murmur [] Lungs & Thorax: Bilateral breath sounds clear to auscultation [] Abdomen: Bowel sounds normal, soft, no tenderness, no masses, no pulsatile masses. [] Skin: Warm, dry, no erythema, no rash. [] Back: No tenderness, no CVA tenderness. [] Extremities: No tenderness, no cyanosis, no clubbing, ROM intact, no edema. [] Neurologic: Alert and oriented X 3, normal motor function, normal sensory function, no focal deficits noted. [] Psychologic: Affect normal, judgement normal, mood normal. [] Current Patient Data Vital Signs Vital Signs Date Time Temp Pulse Resp B/P (MAP) Pulse Ox O2 Delivery O2 Flow Rate FiO2 04/18/18 12:52 97.6 70 16 100 Room Air EKG EKG EKG shows sinus rhythm, no ST elevation, leftward axis of -14, QTC of 460 ms[] Radiology/Procedures Radiology/Procedures Chest x-ray shows borderline cardiomegaly. No acute abnormality is detected[] Course & Med Decision Making Course & Med Decision Making Pertinent Labs and Imaging studies reviewed. (See chart for details) ED course: Patient arrived, was placed in bed, in tolerate exam well. Patient did have improvement in her pain. After the return of lab and imaging studies discussion was made with the family and the patient regarding these results. All questions were answered. Consultation was then made with the hospitalist service for admission. Patient has slightly elevated troponin in the setting of both chest pain and renal insufficiency. There is no evidence of a STEMI, no pneumonia, no pneumothorax, and history is not consistent with a pulmonary embolism.[] Dragon Disclaimer Dragon Disclaimer This electronic medical record was generated, in whole or in part, using a voice recognition dictation system. Departure Departure: Impression: Primary Impression: Atypical chest pain Additional Impressions: Elevated troponin Renal insufficiency Coronary artery disease Disposition: ADMITTED INPATIENT Admitting Physician: [place] Condition: STABLE Referrals: ALESHIA RODRIGUEZ MD (PCP) Problem Qualifiers Additional Impressions: Coronary artery disease Coronary Disease-Associated Artery/Lesion type: unspecified vessel or lesion type [place] vs. transplanted heart: [place] heart Associated angina: angina presence unspecified Qualified Codes: I25.10 - Atherosclerotic heart disease of [place] coronary artery without angina pectoris HONEY ARAMBULA Apr 18, 2018 13:13
[2018-04-18] MEDS ORDERED: ASPIRIN 81 MG TAB.CHEW PO ONE (13:15)
[2018-04-18 13:30] LABS: BASO # 0.1 x10^3/uL (0.0-0.2); BASO % 1 % (0-3); EOS # 0.2 x10^3/uL (0.0-0.7); EOS % 2 % (0-3); HEMATOCRIT 36.4 % (36.0-47.0); HEMOGLOBIN 12.1 g/dL (12.0-15.5); LYMPH # 2.1 x10^3/uL (1.0-4.8); LYMPH % 24 % (24-48); MEAN CORPUSCULAR HEMOGLOBIN 29 pg (25-35); MEAN CORPUSCULAR HGB CONC 33 g/dL (31-37); MEAN CORPUSCULAR VOLUME 87 fL (79-100); MONO # 0.6 x10^3/uL (0.0-1.1); MONO % 7 % (0-9); NEUT # 5.8 x10^3uL (1.8-7.7); NEUT % 66 % (31-73); PLATELET COUNT 181 x10^3/uL (140-400); RED BLOOD COUNT 4.18 x10^6/uL (3.50-5.40); WHITE BLOOD COUNT 8.9 x10^3/uL (4.0-11.0)
--- NOTE | 2018-04-18 13:32 | RAD ---
Portable chest, 04/18/2018: HISTORY: Chest pain Comparison is made to a study from 11/28/2017. There has been a previous median sternotomy. The heart is at the upper limits of normal in size. There is calcific plaquing the aorta. The pulmonary vascularity is normal. A calcified granuloma is present in the right lung. No acute infiltrate is seen. There is no evidence of pleural fluid. IMPRESSION: 1. Borderline cardiomegaly. 2. No acute abnormality is detected. Electronically signed by: Dany Dixon MD (04/18/2018 1:29 PM) [facility]
[2018-04-18] MEDS: NITROGLYCERIN SUBLINGUAL 0.4 MG BOTTLE OF 25. SL PRN ×3 (13:33→15:27)
[2018-04-18 13:51] LABS: ALBUMIN 3.7 g/dL (3.4-5.0); ALBUMIN/GLOBULIN RATIO 0.9 (1.0-1.7); CREATININE 2.1 mg/dL (0.6-1.0); GFR 22.4; MAGNESIUM 2.2 mg/dL (1.8-2.4); POTASSIUM 3.9 mmol/L (3.5-5.1); TOTAL BILIRUBIN 0.6 mg/dL (0.2-1.0); TOTAL PROTEIN 7.8 g/dL (6.4-8.2)
--- NOTE | 2018-04-18 14:27 | EKG ---
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
[2018-04-18] MEDS ORDERED: LIDOCAINE 1% Multi-Dose 20 ML VIAL. IM ONE (15:00)
[2018-04-18] MEDS ORDERED: NITROGLYCERIN SUBLINGUAL 0.4 MG BOTTLE OF 25. SL PRN (16:00)
[2018-04-18] MEDS ORDERED: MORPHINE SULFATE 2 MG/ML DISP.SYRIN. IV PRN (16:00)
[2018-04-18] MEDS ORDERED: ONDANSETRON PF 4 MG/2 ML VIAL. IV PRN (16:00)
[2018-04-18] MEDS ORDERED: NITROGLYCERIN PREMIX 250 ML IV ONE (17:30)
--- NOTE | 2018-04-18 17:47 | HP ---
ADMIT DATE: 04/18/2018 HISTORY OF PRESENT ILLNESS: The patient is an 82-year-old female patient, who came to the Emergency Room complaining of shortness of breath and difficulty breathing that started around 3 minutes prior to arrival. The patient was forced to walk upstairs to her third floor apartment since elevators were broken. On finishing up the chest pain developed. The patient did not have any diaphoresis, did complain of nausea and emesis, but no radiation of discomfort. The patient has previous history of coronary artery bypass graft. Her discomfort did not improve with rest, but does not go entirely away. She said that changing the position and lying in the left side helps the pain. She rated her pain as about 9/10 in severity on arrival, she was given 3 sublingual nitroglycerin and aspirin. By the time I saw her, her chest pain was rated about 6/10; however, she declined any pain medication. She was investigated in the Emergency Room. Her EKG showed that she was in sinus rhythm with no ST-T changes. Her chest x-ray showed borderline cardiomegaly, but no acute abnormalities detected. Her troponin was slightly elevated. In fact, her troponin was 0.071; however, the patient is known to have chronic kidney disease with creatinine of 2.1 and the patient was admitted to rule out myocardial infarction pain management and to consult the clean up helper banquet. PAST MEDICAL HISTORY: Significant for type 2 diabetes, hypertension, hyperlipidemia, chronic kidney disease, hypothyroidism, osteoarthritis, chronic back pain, recurrent left lower extremity cellulitis. PAST SURGICAL HISTORY: Significant for bilateral cataract extraction, coronary artery bypass graft surgery x 5 in 2004, carotid endarterectomy, back surgery, did have a stress test done about 5 months ago. ALLERGIES: She is allergic to CODEINE. MEDICATIONS: She is currently on following medications: She is on Crestor 20 mg once a day, isosorbide mononitrate 60 mg daily, nifedipine 60 mg twice a day, losartan potassium 25 mg once a day, potassium chloride 20 mEq twice a day, chlorthalidone 25 mg once a day, liraglutide for Victoza 0.6 mg subcutaneously daily and insulin. She is on Tresiba FlexTouch 30 units at bedtime. She is on levothyroxine sodium 88 mg daily and cranberry extract 500 mg once a day. FAMILY HISTORY: She has 2 sisters, both older, one because of overdose, the other still alive. One brother younger and also stent in his heart. Her father at age of 56 because of cerebral hemorrhage. Mother at the age of 73 because of myocardial infarction. She lives alone. SOCIAL HISTORY: She has one daughter and one son. She is an ex-smoker, quit in 1979. She does not drink alcohol. REVIEW OF SYSTEMS: The patient denied any blurring of vision, cataract, glaucoma or macular degeneration. Denied any earache, tinnitus or sensorineural deafness. Denied any nosebleeds, stuffy nose or postnasal drip. Denied any sore throat, sore tongue, toothache, hoarseness of voice or difficulty swallowing. Denied any nausea, vomiting, diarrhea or constipation. Denied any hematemesis, melena, hematochezia. Denied any dysuria, frequency or hematuria. Did complain of chest pain that she describes as a heavy weight on her chest as well as shortness of breath, nausea, but no vomiting. Denied any cough, phlegm or hemoptysis. Denied chills, rigors or fever. PHYSICAL EXAMINATION: GENERAL: On arrival to the Emergency Room; she looked slightly pale, but no jaundice, cyanosis, or thyromegaly. No jugular venous distension. No limb edema. VITAL SIGNS: Her heart rate was 70, blood pressure was 178/75, temperature was 97.6, respiratory rate was 16 and oxygen saturation was 100% on room air. HEAD, EYES, EARS, NOSE AND THROAT: Showed normocephalic, atraumatic. NECK: Supple. HEART: Showed normal first and second heart sounds with no gallop, rub or murmur. CHEST: Clear to auscultation. No crepitation or rhonchi. ABDOMEN: Distended, soft, nontender. No guarding or rigidity. No organomegaly. All hernial orifice intact. Bowel sounds normal. NEUROLOGIC: She is awake, alert, responding appropriately. All cranial nerves intact. EXTREMITIES: She moves extremities without difficulty. She is able to ambulate with a walker. LABORATORY DATA: In the Emergency Room showed her serum sodium to be 138, potassium 3.9, chloride 102, bicarbonate 23, anion gap of 13, BUN 47, creatinine 2.1, estimated GFR was 22 mL per minute. Her glucose was 190, calcium 10, magnesium 2.2. Total bilirubin, AST, ALT, alkaline phosphatase were normal. Her troponin is less than 0.071. Beta natriuretic peptide was 769. Total protein was 7.8, albumin was 3.6. Her prothrombin time was 10.7, INR 1.1 and her white cell count was 8900, hemoglobin 12, hematocrit 36, MCV 87 and platelet count of 181,000. Her chest x-ray showed that there has been a previous median sternotomy. The heart is the upper limit of normal in size. There is calcific plaquing in the aorta. The pulmonary vascularity is normal. Calcified granuloma is present in the right lung. No acute infiltrate is seen. There is no evidence of pleural effusion. Her EKG showed that she was in sinus rhythm with no ST segment elevation or depression. She has a left axis deviation and corrected interval of 460 milliseconds. PLAN: My plan is obviously to continue to do 2 more sets of cardiac enzyme, consult the Cardiology team. I will continue all her medication, probably add longer long-acting nitrate and check her lipid profile tomorrow. SHANNAN ALFARO MD DR: JANELLE/pallavi JOB#: [id number] / [id number]
[2018-04-18] MEDS: ATORVASTATIN CALCIUM 20 MG TABLET PO SCH (23:09)
[2018-04-18] MEDS: POTASSIUM CHLORIDE 20 MEQ TABLET.ER. PO SCH (23:11)
[2018-04-18] MEDS: INSULIN GLARGINE 300 UNITS/3 ML INSULN.PEN. SQ SCH (23:24)
[2018-04-19] VITALS (25 sets, daily range): BP systolic 119–159; BP diastolic 41–64
[2018-04-19 06:41] LABS: BASO % 1 % (0-3); EOS # 0.1 x10^3/uL (0.0-0.7); EOS % 1 % (0-3); HEMATOCRIT 31.4 % (36.0-47.0); HEMOGLOBIN 10.5 g/dL (12.0-15.5); LYMPH # 1.6 x10^3/uL (1.0-4.8); LYMPH % 19 % (24-48); MEAN CORPUSCULAR HEMOGLOBIN 29 pg (25-35); MEAN CORPUSCULAR HGB CONC 33 g/dL (31-37); MEAN CORPUSCULAR VOLUME 87 fL (79-100); MONO # 0.9 x10^3/uL (0.0-1.1); MONO % 10 % (0-9); NEUT % 70 % (31-73); PLATELET COUNT 165 x10^3/uL (140-400); RED BLOOD COUNT 3.61 x10^6/uL (3.50-5.40); RED CELL DISTRIBUTION WIDTH 13.8 % (11.5-14.5); WHITE BLOOD COUNT 8.6 x10^3/uL (4.0-11.0)
[2018-04-19 06:56] LABS: ALBUMIN 3.1 g/dL (3.4-5.0); ALBUMIN/GLOBULIN RATIO 0.9 (1.0-1.7); CALCIUM 9.1 mg/dL (8.5-10.1); CREATININE 1.9 mg/dL (0.6-1.0); GFR 25.2; POTASSIUM 3.9 mmol/L (3.5-5.1); TOTAL BILIRUBIN 0.7 mg/dL (0.2-1.0); TOTAL PROTEIN 6.7 g/dL (6.4-8.2)
[2018-04-19] MEDS: LEVOTHYROXINE 88 MCG TABLET PO SCH (07:57)
[2018-04-19] MEDS: LOSARTAN 25 MG TABLET. PO SCH (08:53)
[2018-04-19] MEDS: ISOSORBIDE MONONITRATE ER 30 MG TAB.ER.24H PO SCH (08:54)
[2018-04-19] MEDS: CHLORTHALIDONE 25 MG TABLET PO SCH (08:56)
[2018-04-19] MEDS: POTASSIUM CHLORIDE 20 MEQ TABLET.ER. PO SCH ×2 (08:59→20:53)
[2018-04-19] MEDS ORDERED: NON FORMULARY ITEM (Cranberry Extract (Cranberry) 500 MG) PO SCH (09:00)
--- NOTE | 2018-04-19 10:23 | PN ---
DATE: 04/19/2018 SUBJECTIVE: The patient is resting slightly propped up in bed, in no apparent distress. Her pain has largely subsided after she received morphine and she slept well. She states that her pain is now in the right upper quadrant and she was told before that she might have an inflamed gallbladder. In fact, her lab work this morning showed that her liver enzymes are slightly elevated compared to their values on admission as her AST and ALT were 40 and 47 respectively and this morning, they went up to 121 and 113. She continues to be on nitroglycerin drip. PHYSICAL EXAMINATION: GENERAL: When I examined her, she was pale, but no jaundice, cyanosis, or thyromegaly. No jugular venous distention. No lower limb edema. VITAL SIGNS: Her heart rate was 73, blood pressure was 145/53, temperature was 98.5, respiratory rate was 16, and oxygen saturation was 94% on room air. HEAD, EYES, EARS, NOSE AND THROAT: Showed normocephalic, atraumatic. NECK: Supple. HEART: Showed normal first and second heart sounds with no gallop, rub, or murmur. CHEST: Clear to auscultation. No crepitation or rhonchi. ABDOMEN: Distended, soft, nontender. No guarding or rigidity. No organomegaly. All hernial orifice intact. Bowel sounds normal. NEUROLOGIC: She is awake, alert, responding appropriately. All cranial nerves intact. She moves extremities without difficulty. LABORATORY DATA: Her lab work this morning showed a white cell count of 8600, hemoglobin 10.5, hematocrit 31.4, MCV 87, and platelet count of 165,000. Her chemistry showed serum sodium 137, potassium 3.9, chloride 103, bicarbonate 24, anion gap of 10, BUN 42, creatinine 1.9, estimated GFR was 25 mL per minute. Her glucose was 142. Calcium was 9.1. Total bilirubin and alkaline phosphatase normal. AST and ALT are elevated. Her total protein was 6.7, albumin was 3.1. Her prothrombin time was 10.7, INR of 1.1. ASSESSMENT: Unstable angina for which she is now on nitroglycerin drip. Her pain has subsided with the addition of morphine. The patient does not want to be on hemodialysis and therefore we will maximize her medical treatment. She complained that her pain also is in the right upper quadrant and she thinks that she might have problem with her gallbladder disease. She has had ultrasound before, which showed sludge in her gallbladder. Her liver enzymes have definitely risen compared to yesterday. PLAN: I will arrange for her to have abdominal ultrasound to see if there is any evidence to see if there is any evidence of acute cholecystitis. Meanwhile, we will try to titrate the nitroglycerin drip down and also await the evaluation by the crate icer. SHANNAN ALFARO MD DR: JANELLE/pallavi JOB#: [id number] / [id number]
[2018-04-19] MEDS: NON FORMULARY ITEM (Liraglutide (Victoza 3-Pak) 0.6 MG) SQ SCH (10:55)
[2018-04-19] MEDS ORDERED: LOSARTAN 25 MG TABLET. PO STA (13:43)
[2018-04-19] MEDS ORDERED: ASPIRIN ENTERIC COATED 81 MG TABLET.DR. PO ONE (14:00)
[2018-04-19] MEDS: HEPARIN PF for SUB-Q USE 5,000 UNIT/0.5 ML VIAL. SQ SCH ×2 (14:12→21:01)
--- NOTE | 2018-04-19 14:30 | CONS ---
DATE OF CONSULTATION: 04/19/2018 REASON FOR CONSULTATION: Elevated troponin, hypertension. HISTORY OF PRESENT ILLNESS: The patient is a pleasant 82-year-old woman with past medical history as noted below, who presents to the hospital in the setting of shortness of breath and some chest discomfort. She was noted to have a minimally elevated troponin, but she was notably significantly hypertensive with systolic blood pressure near 200. She was started on nitroglycerin therapy and given morphine, which helped improve her symptoms. Of note, she was admitted to the hospital in 09/2017 with significant chest pain at that time and also some minimal troponin elevation. She underwent an echocardiogram and a stress test at that time, which was unremarkable. In talking to the patient, she denies any specific cardiac limitations such as chest pain, dyspnea, orthopnea, PND or significant lower extremity edema that is new over the last several months. Her discomfort that causes presentation has occurred of the last 24 hours. PAST MEDICAL HISTORY: 1. Coronary artery disease, status post bypass nearly 20 years ago. 2. Hypertension. 3. Dyslipidemia. 4. Hypothyroidism. 5. Diabetes. FAMILY HISTORY: Noncontributory. SOCIAL HISTORY: The patient is retired and . She does not drink excessive alcohol. She does not smoke. REVIEW OF SYSTEMS: Negative for 10 out of 14 systems reviewed, unless otherwise mentioned above in HPI. PHYSICAL EXAMINATION: VITAL SIGNS: Afebrile, 72, 18, 136/82, pulse ox 94% on room air. GENERAL: She is alert and oriented, no acute distress. HEAD AND NECK: Unremarkable. HEART: Regular rate and rhythm with a 3/6 systolic murmur at the mitral and aortic positions. LUNGS: Fairly clear to auscultation bilaterally. ABDOMEN: Mildly tender to palpation in the right upper quadrant, but otherwise soft, nontender diffusely. NEUROLOGIC: No focal deficits. MUSCULOSKELETAL: No trauma. DIAGNOSTIC STUDIES: Troponin minimally elevated as noted at a peak of 0.094. Creatinine is mildly elevated at 2.1, but this is her baseline. Chest x-ray is unremarkable and the EKG does not reveal any significant pathology. Echocardiogram demonstrates normal LV systolic function with [id number] mitral regurgitation and this was performed in 09/2017. Per patient report stress test at the office at [facility] did not reveal any significant pathology. IMPRESSION: 1. Chest pain in the setting of hypertensive crisis with systolic blood pressures in the 180s. 2. Coronary artery disease. 3. Hypertension. 4. Dyslipidemia. RECOMMENDATIONS: 1. At this present time, we will continue the patient's Imdur, chlorthalidone, losartan, atorvastatin, and nifedipine 60 mg b.i.d. 2. Troponin elevation is likely secondary to her diastolic dysfunction in the setting of elevated blood pressures. Continue statin therapy and we will add an aspirin for her regimen. No further cardiac testing necessary at this time. We will stop her nitroglycerin drip and increase her losartan to 50 mg daily. Monitor her blood pressure over the next 24 hours and further evaluation of the right upper quadrant pain per Dr. Taveras. Supportive care for now and should she have any persistent blood pressure issues we may continue to up titrate losartan as her renal function allows. Otherwise, may need to add hydralazine. Thank you for this consultation. KYLIE AMAYA MD DR: DENNSI/pallavi JOB#: [id number] / [id number]
[2018-04-19] MEDS: ATORVASTATIN CALCIUM 20 MG TABLET PO SCH (20:53)
[2018-04-19] MEDS: INSULIN GLARGINE 300 UNITS/3 ML INSULN.PEN. SQ SCH (21:02)
[2018-04-20] VITALS (11 sets, daily range): BP systolic 114–139; BP diastolic 43–68
[2018-04-20] MEDS: HEPARIN PF for SUB-Q USE 5,000 UNIT/0.5 ML VIAL. SQ SCH ×3 (05:42→21:45)
[2018-04-20 07:48] LABS: BASO % 1 % (0-3); EOS # 0.2 x10^3/uL (0.0-0.7); EOS % 2 % (0-3); HEMATOCRIT 30.1 % (36.0-47.0); HEMOGLOBIN 10.1 g/dL (12.0-15.5); LYMPH # 1.6 x10^3/uL (1.0-4.8); LYMPH % 23 % (24-48); MEAN CORPUSCULAR HEMOGLOBIN 29 pg (25-35); MEAN CORPUSCULAR HGB CONC 34 g/dL (31-37); MEAN CORPUSCULAR VOLUME 87 fL (79-100); MONO # 0.8 x10^3/uL (0.0-1.1); MONO % 11 % (0-9); NEUT # 4.4 x10^3uL (1.8-7.7); NEUT % 63 % (31-73); PLATELET COUNT 135 x10^3/uL (140-400); RED BLOOD COUNT 3.47 x10^6/uL (3.50-5.40); RED CELL DISTRIBUTION WIDTH 13.6 % (11.5-14.5); WHITE BLOOD COUNT 7.1 x10^3/uL (4.0-11.0)
[2018-04-20 08:02] LABS: ALBUMIN 2.7 g/dL (3.4-5.0); ALBUMIN/GLOBULIN RATIO 0.7 (1.0-1.7); CALCIUM 8.7 mg/dL (8.5-10.1); GFR 23.7; TOTAL BILIRUBIN 1.1 mg/dL (0.2-1.0); TOTAL PROTEIN 6.5 g/dL (6.4-8.2)
[2018-04-20] MEDS: ASPIRIN ENTERIC COATED 81 MG TABLET.DR. PO SCH (09:42)
[2018-04-20] MEDS: NON FORMULARY ITEM (Liraglutide (Victoza 3-Pak) 0.6 MG) SQ SCH (09:42)
[2018-04-20] MEDS: CHLORTHALIDONE 25 MG TABLET PO SCH (09:43)
[2018-04-20] MEDS: POTASSIUM CHLORIDE 20 MEQ TABLET.ER. PO SCH ×2 (09:43→21:41)
[2018-04-20] MEDS: ISOSORBIDE MONONITRATE ER 30 MG TAB.ER.24H PO SCH (09:43)
[2018-04-20] MEDS: LEVOTHYROXINE 88 MCG TABLET PO SCH (09:44)
[2018-04-20] MEDS: LOSARTAN 25 MG TABLET. PO SCH (09:44)
--- NOTE | 2018-04-20 11:36 | RAD ---
Ultrasound abdomen limited 04/20/2018 CLINICAL INDICATION: Right upper quadrant abdominal pain, elevated LFTs. COMPARISON: Ultrasound 11/28/2017, CT abdomen and pelvis 11/26/2016. FINDINGS: Visualized proximal pancreatic body unremarkable. Visualized upper abdominal aorta and IVC unremarkable. Liver is homogeneous in echotexture the visualized portions. Nonshadowing layering echogenicity consistent with sludge in a nondilated gallbladder. No gallbladder wall thickening or pericholecystic fluid. No intra or extrahepatic biliary ductal dilatation. Common bile duct measures 0.3 cm. Right kidney measures 10.1 cm in length without hydronephrosis. There is a simple appearing cyst in the superior pole of the renal sinus measuring up to 1.8 cm. IMPRESSION: 1. Gallbladder sludge without sonographic evidence of acute cholecystitis. 2. No biliary ductal dilatation. Electronically signed by: Gm Moreau MD (04/20/2018 11:32 AM) [facility]
--- NOTE | 2018-04-20 14:42 | PN ---
DATE: 04/20/2018 SUBJECTIVE: The patient is resting slightly propped up in bed, in no apparent distress. She continued to complain of pain in her right upper quadrant. However, so far all our lab work and imaging studies is negative. Her blood pressure is definitely much better controlled. PHYSICAL EXAMINATION: GENERAL: When I examined her today, she looked somewhat pale, but no jaundice, cyanosis, or thyromegaly. No jugular venous distension. No lower limb edema. VITAL SIGNS: Heart rate was 63, blood pressure 114/43, temperature was 97.3, respiratory rate was 16, and oxygen saturation was 95% on room air. HEAD, EYES, EARS, NOSE AND THROAT: Showed normocephalic, atraumatic. NECK: Supple. HEART: Showed normal first and second heart sounds. No gallop, rub or murmur. CHEST: Clear to auscultation. No crepitation or rhonchi. ABDOMEN: Distended, soft, nontender. No guarding or rigidity. No organomegaly. Hernial orifice intact. Bowel sounds normal. NEUROLOGIC: She is awake, alert, responding appropriately. All her cranial nerves are intact. She moves extremities without difficulty. She managed to get out of the bed to bedside commode. Her intake over the last 24 hours was 1600, output was 1600. LABORATORY DATA: Her lab work this morning showed a white cell count 7000, hemoglobin 10, hematocrit 30, MCV 87, and platelet count of 135,000. Her chemistry showed a serum sodium 137, potassium 4, chloride 103, bicarbonate 24, anion gap of 10, BUN 41, creatinine 2, estimated GFR was 23 mL per minute. Her glucose 133, calcium was 8.7. Total bilirubin, AST and ALT are slightly elevated. Alkaline phosphatase was normal. Her total protein was 6.5, albumin was 2.7. Her prothrombin time was 10.7 and INR 1.1. ASSESSMENT: Chest pain with mild elevated troponin, felt to be secondary to elevated ____ hypertension. Other problems include right upper quadrant pain with mildly elevated liver enzymes. The ultrasound showed no evidence of acute cholecystitis. There is sludge in the gallbladder, but no evidence of cholelithiasis or acute cholecystitis. Other medical problems include hypertension, hyperlipidemia, hypothyroidism, type 2 diabetes, coronary artery disease, status post bypass nearly 20 years ago. PLAN: To continue with maximize medical treatment. Her liver enzymes are slightly elevated. I will repeat all her lab work tomorrow. I will also arrange for her to have hepatitis panel and we will decide the further management accordingly. SHANNAN ALFARO MD DR: JANELLE/pallavi JOB#: [id number] / [id number]
[2018-04-20] MEDS: ATORVASTATIN CALCIUM 20 MG TABLET PO SCH (21:41)
[2018-04-20] MEDS: INSULIN GLARGINE 300 UNITS/3 ML INSULN.PEN. SQ SCH (21:46)
[2018-04-21] MEDS: HEPARIN PF for SUB-Q USE 5,000 UNIT/0.5 ML VIAL. SQ SCH (05:33)
[2018-04-21 06:01] VITALS: BP 135/66
[2018-04-21] MEDS: CHLORTHALIDONE 25 MG TABLET PO SCH (08:16)
[2018-04-21] MEDS: LEVOTHYROXINE 88 MCG TABLET PO SCH (08:16)
[2018-04-21] MEDS: LOSARTAN 25 MG TABLET. PO SCH (08:16)
[2018-04-21] MEDS: POTASSIUM CHLORIDE 20 MEQ TABLET.ER. PO SCH (08:16)
[2018-04-21] MEDS: ASPIRIN ENTERIC COATED 81 MG TABLET.DR. PO SCH (08:17)
[2018-04-21] MEDS: ISOSORBIDE MONONITRATE ER 30 MG TAB.ER.24H PO SCH (08:17)
[2018-04-21] MEDS: NON FORMULARY ITEM (Liraglutide (Victoza 3-Pak) 0.6 MG) SQ SCH (08:19)
--- NOTE | 2018-04-21 09:29 | PDOC ---
PROGRESS NOTES Diagnosis Problem Problems Medical Problems: (1) Elevated troponin Status: Acute (2) Renal insufficiency Status: Acute Assessment Problems Medical Problems: (1) Elevated troponin Status: Acute (2) Renal insufficiency Status: Acute 1. chest pain - resolved. minimal troponin elevation, demand related. no acute ekg changes. recent MPI and echo without significant ischemic changes. 2. accelerated hypertension - control significantly improved. continue current meds. 3. CAD/CABG status - continue medical mgmt and RF reduction. 4. HLD - controlled, continue statin 5. abd pain - per PCP Subjective no chest pain, c/o chronic back pain, no dyspnea, palpitations, or lightheadedness. Objective tele - no significant arrhythmias Vital Signs Date Time Temp Pulse Resp B/P (MAP) Pulse Ox O2 Delivery O2 Flow Rate FiO2 04/21/18 08:17 67 135/66 04/21/18 06:01 98.7 20 95 Room Air 04/20/18 04:05 2.0 Intake and Output 04/21/18 07:00 Intake Total 1100 ml Output Total 802 ml Balance 298 ml Intake Oral 1100 ml Output Urine Total 800 ml Stool Total 2 ml # Voids 1 Abdomen: Normal bowel sounds, Soft Heart: Normal S1, Normal S2, Other (no gallops, clicks or rubs, soft systolic murmur @LSB) Extremities: No cyanosis, Normal pulses, Other (trace edema) General: Alert, Oriented X3, Cooperative, No acute distress HEENT: Atraumatic, EOMI Lungs: Clear to auscultation, Normal air movement Neuro: Normal speech, Strength at 5/5 X4 ext Psych/Mental Status: Mental status NL, Mood NL Review of Relevant I have reviewed the following items catherine (where applicable) has been applied. Labs Laboratory Tests Test 04/19/18 11:41 04/19/18 16:56 04/19/18 20:11 04/20/18 07:33 Glucose (Fingerstick) 256 mg/dL (70-99) 228 mg/dL (70-99) 208 mg/dL (70-99) White Blood Count 7.1 x10^3/uL (4.0-11.0) Red Blood Count 3.47 x10^6/uL (3.50-5.40) Hemoglobin 10.1 g/dL (12.0-15.5) Hematocrit 30.1 % (36.0-47.0) Mean Corpuscular Volume 87 fL (79-100) Mean Corpuscular Hemoglobin 29 pg (25-35) Mean Corpuscular Hemoglobin Concent 34 g/dL (31-37) Red Cell Distribution Width 13.6 % (11.5-14.5) Platelet Count 135 x10^3/uL (140-400) Neutrophils (%) (Auto) 63 % (31-73) Lymphocytes (%) (Auto) 23 % (24-48) Monocytes (%) (Auto) 11 % (0-9) Eosinophils (%) (Auto) 2 % (0-3) Basophils (%) (Auto) 1 % (0-3) Neutrophils # (Auto) 4.4 x10^3uL (1.8-7.7) Lymphocytes # (Auto) 1.6 x10^3/uL (1.0-4.8) Monocytes # (Auto) 0.8 x10^3/uL (0.0-1.1) Eosinophils # (Auto) 0.2 x10^3/uL (0.0-0.7) Basophils # (Auto) 0.0 x10^3/uL (0.0-0.2) Sodium Level 137 mmol/L (136-145) Potassium Level 4.0 mmol/L (3.5-5.1) Chloride Level 103 mmol/L (98-107) Carbon Dioxide Level 24 mmol/L (21-32) Anion Gap 10 (6-14) Blood Urea Nitrogen 41 mg/dL (7-20) Creatinine 2.0 mg/dL (0.6-1.0) Estimated GFR (Cockcroft-Gault) 23.7 BUN/Creatinine Ratio 21 (6-20) Glucose Level 133 mg/dL (70-99) Calcium Level 8.7 mg/dL (8.5-10.1) Total Bilirubin 1.1 mg/dL (0.2-1.0) Aspartate Amino Transf (AST/SGOT) 135 U/L (15-37) Alanine Aminotransferase (ALT/SGPT) 148 U/L (14-59) Alkaline Phosphatase 79 U/L (46-116) Total Protein 6.5 g/dL (6.4-8.2) Albumin 2.7 g/dL (3.4-5.0) Albumin/Globulin Ratio 0.7 (1.0-1.7) Test 04/20/18 07:38 04/20/18 21:38 04/21/18 06:18 04/21/18 07:26 Glucose (Fingerstick) 125 mg/dL (70-99) 157 mg/dL (70-99) 96 mg/dL (70-99) Sodium Level 137 mmol/L (136-145) Potassium Level 3.8 mmol/L (3.5-5.1) Chloride Level 103 mmol/L (98-107) Carbon Dioxide Level 23 mmol/L (21-32) Anion Gap 11 (6-14) Blood Urea Nitrogen 42 mg/dL (7-20) Creatinine 2.2 mg/dL (0.6-1.0) Estimated GFR (Cockcroft-Gault) 21.3 BUN/Creatinine Ratio 19 (6-20) Glucose Level 103 mg/dL (70-99) Calcium Level 9.2 mg/dL (8.5-10.1) Total Bilirubin 0.9 mg/dL (0.2-1.0) Aspartate Amino Transf (AST/SGOT) 100 U/L (15-37) Alanine Aminotransferase (ALT/SGPT) 137 U/L (14-59) Alkaline Phosphatase 109 U/L (46-116) Total Protein 7.8 g/dL (6.4-8.2) Albumin 3.2 g/dL (3.4-5.0) Albumin/Globulin Ratio 0.7 (1.0-1.7) Medications Current Medications Aspirin (Children'S Aspirin) 324 mg 1X ONCE PO Last administered on at 13:26; Start 04/18/18 at 13:15; Stop 04/18/18 at 13:17; Status DC Nitroglycerin (Nitrostat) 0.4 mg PRN Q5MIN PRN SL CP RATING > 1/10 Last administered on 04/18/18at 15:27; Start 04/18/18 at 13:15; Stop 04/19/18 at 07 :20; Status DC Lidocaine HCl 20 ml 1X ONCE IM ; Start 04/18/18 at 15:00; Stop 04/18/18 at 15 :01; Status DC Ondansetron HCl (Zofran) 4 mg PRN Q4HRS PRN IV NAUSEA/VOMITING; Start at 16:00; Stop 04/19/18 at 16:00; Status DC Morphine Sulfate (Morphine 2mg Syringe) 2 mg PRN Q2HR PRN IV PAIN Last administered on 04/18/18at 19:52; Start 04/18/18 at 16:00; Stop 04/19/18 at 16 :00; Status DC Nitroglycerin (Nitrostat) 0.4 mg PRN Q5MIN PRN SL CHEST PAIN; Start 04/18/18 at 16:00; Stop 04/19/18 at 16:00; Status DC Levothyroxine Sodium (Synthroid) 88 mcg DAILYAC PO Last administered on at 08:16; Start 04/19/18 at 07:30 Losartan Potassium (Cozaar) 25 mg DAILY PO Last administered on 04/21/18 08: 16; Start 04/19/18 at 09:00 Chlorthalidone (Thalitone) 25 mg DAILY PO Last administered on 04/21/18at 08:16 ; Start 04/19/18 at 09:00 Non-Formulary Medication (Cranberry Extract (Cranberry)) 500 mg DAILY PO ; Start 04/19/18 at 09:00; Stop 04/19/18 at 09:00; Status DC Insulin Glargine (Lantus) 30 units QHS SQ Last administered on 04/20/18at 21:46 ; Start 04/18/18 at 21:00 Isosorbide Mononitrate (Imdur) 60 mg DAILY PO Last administered on 04/21/18 08:17; Start 04/19/18 at 09:00 Non-Formulary Medication (Liraglutide (Victoza 3-Sylvain)) 0.6 mg DAILY SQ Last administered on 04/21/18 08:19; Start 04/19/18 at 09:00 Nifedipine (Procardia Xl) 60 mg BID PO Last administered on 04/21/18 08:17; Start 04/18/18 at 21:00 Potassium Chloride (Klor-Con) 20 meq BID PO Last administered on 04/21/18 08: 16; Start 04/18/18 at 21:00 Atorvastatin Calcium (Lipitor) 80 mg QHS PO Last administered on 04/20/18at 21: 41; Start 04/18/18 at 21:00 Fentanyl Citrate (Fentanyl 2ml Vial) 25 mcg PRN Q2HR PRN IV PAIN Last administered on 04/19/18at 16:54; Start 04/18/18 at 17:30 Nitroglycerin/ Dextrose 250 ml @ 0 mls/hr 1X ONCE IV Last administered on at 17:56; Start 04/18/18 at 17:30; Stop 04/18/18 at 17:33; Status DC Heparin Sodium (Porcine) (Heparin Sq) 5,000 unit Q8HRS SQ Last administered on 04/20/18at 21:45; Start 04/19/18 at 14:00 Losartan Potassium (Cozaar) 25 mg 1X STAT PO Last administered on 04/19/18at 14:08; Start 04/19/18 at 13:43; Stop 04/19/18 at 13:48; Status DC Aspirin (Aspirin Enteric Coated) 81 mg 1X ONCE PO Last administered on at 14:08; Start 04/19/18 at 14:00; Stop 04/19/18 at 14:01; Status DC Aspirin (Aspirin Enteric Coated) 81 mg DAILYWBKFT PO Last administered on 04/21at 08:17; Start 04/20/18 at 08:00 Active Scripts Active Isosorbide Mononitrate Er (Isosorbide Mononitrate) 60 Mg Tab.er.24h 1 Tab PO DAILY Reported Cranberry (Cranberry Extract) 500 Mg Tablet 500 Mg PO DAILY NEXT DOSE DUE: DATE: RESTART TOMORROW TIME: AM NEXT DOSE DUE: DATE: TIME: Victoza 3-Sylvain (Liraglutide) 0.6 Mg/0.1 Ml Pen.injctr 0.6 Mg SQ DAILY NOT GIVEN IN THE HOSPITAL NEXT DOSE DUE: DATE: RESTART TOMORROW TIME: AM DATE: TIME: Tresiba Flextouch U-100 (Insulin Degludec) 100 Unit/1 Ml Insuln.pen 30 Unit SQ HS LAST DOSE GIVEN: DATE: LANTUS GIVEN YESTERDAY TIME: AT BEDTIME NEXT DOSE DUE: DATE: TODAY TIME: AT BEDTIME Potassium Chloride 10 Meq Tablet.er 20 Meq PO BID LAST DOSE GIVEN: DATE: TODAY TIME: AM NEXT DOSE DUE: DATE: TODAY TIME: PM Crestor (Rosuvastatin Calcium) 20 Mg Tablet 1 Tab PO HS LAST DOSE GIVEN: DATE: TODAY TIME: AM NEXT DOSE DUE: DATE: TOMORROW TIME: AT BEDTIME Losartan Potassium 25 Mg Tablet 25 Mg PO DAILY LAST DOSE GIVEN: DATE: TODAY TIME: AM NEXT DOSE DUE: DATE: TOMORROW TIME: AM Chlorthalidone 25 Mg Tablet 25 Mg PO DAILY LAST DOSE GIVEN: DATE: TODAY TIME: AM NEXT DOSE DUE: DATE: TOMORROW TIME: AM Nifedipine Er (Nifedipine) 60 Mg Tab.er.24 60 Mg PO BID LAST DOSE GIVEN: DATE: TODAY TIME: AM NEXT DOSE DUE: DATE: TODAY TIME: PM Levothyroxine Sodium 88 Mcg Tablet 88 Mcg PO DAILYAC LAST DOSE GIVEN: DATE: TODAY TIME: BEFORE BREAKFAST NEXT DOSE DUE: DATE: TOMORROW TIME: BEFORE BREAKFAST Vitals/I & O Vital Sign - Last 24 Hours 04/20/18 04/20/18 04/20/18 04/20/18 09:43 09:43 09:44 13:45 Pulse 65 65 65 63 B/P (MAP) 131/51 131/51 131/51 114/43 (66) 04/20/18 04/20/18 04/20/18 04/20/18 19:57 20:00 21:41 23:01 Temp 98.4 99.4 Pulse 68 68 69 Resp 20 20 B/P (MAP) 134/68 (90) 134/68 135/60 (85) Pulse Ox 95 94 O2 Delivery Room Air Room Air Room Air 04/21/18 04/21/18 04/21/18 04/21/18 06:01 08:16 08:17 08:17 Temp 98.7 Pulse 67 67 67 67 Resp 20 B/P (MAP) 135/66 (89) 135/66 135/66 135/66 Pulse Ox 95 O2 Delivery Room Air Intake and Output 04/20/18 04/20/18 04/21/18 15:00 23:00 07:00 Intake Total 300 ml 480 ml 320 ml Output Total 800 ml 2 ml Balance -500 ml 480 ml 318 ml JOE ROOT APRN Apr 21, 2018 09:29
[2018-04-21 11:31] VITALS: BP 135/54
--- NOTE | 2018-04-21 12:41 | DS ---
DATE OF DISCHARGE: 04/21/2018 HISTORY OF PRESENT ILLNESS: The patient is an 82-year-old female patient, who came to the Emergency Room complaining of severe chest pain associated with shortness of breath, difficulty breathing that started about 30 minutes prior to arrival. She apparently was forced to climb stairs to her third floor apartment since elevators were broken. By the time she arrived to her apartment she developed severe chest pain. She was diaphoretic and did complain of nausea and emesis, but denied any radiation of her discomfort. She is known to have history of coronary artery bypass graft surgery. Her discomfort did not improve with rest and she was brought by ambulance to the Emergency Room. By the time she arrived, she rated her pain about 9/10 in severity. She was given 3 sublingual nitroglycerin and aspirin; however, she continued to have pain. By the time she arrived to the ICU with blood sugar was about 6/10 in severity end up starting her on nitroglycerin drip. She has 3 sets of cardiac enzymes that showed slightly elevated troponin; however, she has chronic kidney disease and her blood pressure was accelerated and the patient did not want to go on hemodialysis and therefore, no further ischemic workup was recommended by the driver education road instructor. She did complain of pain in her right upper quadrant with some derangement of her liver enzymes; however, abdominal ultrasound showed no evidence of any cholecystitis or cholelithiasis. Eventually, her liver enzymes have tended down. The patient's chest pain has resolved. The patient has been up and about without any difficulty and a decision was made to discharge her home to continue on her current medication. Follow with her cardiology team from the [facility] as well as her primary care physician, Dr. Mathew. PHYSICAL EXAMINATION: GENERAL: When I saw her this morning, she was sitting slightly propped up in bed, in no apparent respiratory distress. There was no pallor, jaundice, cyanosis, or thyromegaly. No jugular venous distension. No limb edema. VITAL SIGNS: Her heart rate was 66, blood pressure is 135/54, her temperature was 98.1, respiratory rate 20, and oxygen saturation was 95%. HEAD, EYES, EARS, NOSE AND THROAT: Showed normocephalic, atraumatic. NECK: Supple. HEART: Showed normal first and second heart sounds with no gallop, rub or murmur. CHEST: Clear to auscultation. No crepitation or rhonchi. ABDOMEN: Distended, soft, nontender. NEUROLOGIC: She is awake, alert, responding appropriately. All cranial nerves intact. EXTREMITIES: She moves extremities without difficulty. LABORATORY DATA: Her lab work this morning showed a white cell count 7100, hemoglobin 10, hematocrit 30, MCV 87, and platelet count of 135,000. Her chemistry this morning showed a serum sodium 137, potassium 3.8, chloride 103, bicarbonate 23, anion gap of 11, BUN 42, creatinine 2.2, estimated GFR was 21 mL per minute. Her glucose 103, calcium was 9.2. Total bilirubin and alkaline phosphatase normal. AST, ALT slightly elevated, but trending down. Her total protein was 7.8, albumin 3.2. DISCHARGE MEDICATIONS: She was discharged home to continue on her current medications that include chlorthalidone 25 mg once a day, cranberry extract 500 mg once a day, Tarceva she takes 30 units at bedtime, isosorbide mononitrate 60 mg once a day, levothyroxine 88 mcg once a day, Victoza 0.6 mg subcutaneously daily. She is on nifedipine 60 mg twice a day, potassium chloride 20 mEq twice a day and Crestor 20 mg p.o. at bedtime. FINAL DISCHARGE DIAGNOSES: Chest pain with slight elevation of troponin, likely secondary to accelerated hypertension and chronic kidney disease. No further ischemic workup was recommended by the Cardiology team, accelerated hypertension much better controlled, coronary artery disease, status post coronary artery bypass graft. Continue with her current medical management. Hyperlipidemia well controlled on her Crestor, right upper quadrant pain with slight deranged liver enzymes that has resolved. No evidence of acute cholecystitis. SHANNAN ALFARO MD DR: JANELLE/pallavi JOB#: [id number] / [id number]
== END 2018-04-21 13:11 | disposition home or self-care (01) | DRG 305 ==
LOC: ER 12:52 → ICU 15:40 → 1 SOUTH 04-20 14:27
PROVIDERS: ADMIT Internal Medicine; ATTEND Internal Medicine
DX: I16.9 Hypertensive crisis, unspecified (principal); I25.110 Atherosclerotic heart disease of native coronary artery with unstable angina pectoris; E03.9 Hypothyroidism, unspecified; E11.22 Type 2 diabetes mellitus with diabetic chronic kidney disease; N18.9 Chronic kidney disease, unspecified; G89.29 Other chronic pain; E78.00 Pure hypercholesterolemia, unspecified; E78.5 Hyperlipidemia, unspecified; I12.9 Hypertensive chronic kidney disease with stage 1 through stage 4 chronic kidney disease, or unspecified chronic kidney disease; Z82.49 Family history of ischemic heart disease and other diseases of the circulatory system; Z95.1 Presence of aortocoronary bypass graft; Z79.899 Other long term (current) drug therapy; Z87.891 Personal history of nicotine dependence; Z98.41 Cataract extraction status, right eye; Z98.42 Cataract extraction status, left eye; Z88.5 Allergy status to narcotic agent
CPT/HCPCS: 36415; 71045; 76705; 80053; 80061; 82947; 83735; 83880; 84484; 85025; 85610; 86705; 86709; 86803; 87340; 87641; 93005; J1815; J2270; J3010; J3490; 99285-25

== ENCOUNTER → 2020-03-08 | Outpatient (CLI) | payer MEDICARE, MEDICAID ==
[~2020-03-08] MED LIST changes: +ASPI81TA59 PO; -CHLO25TA PO; +CHLO25TA9 PO; +LEVO112T4 PO; +LOSA25TA11 PO; -LOSA25TA5 PO; +LOSA50TA86 PO; +MULT-445 PO; -MULT1TAB52 PO; -NIFE60TA16 PO; +NIFE60TA90 PO
== END ==
LOC: LAB 13:00
PROVIDERS: ATTEND Nurse Anesthetist, Certified Registered
DX: Z01.812 Encounter for preprocedural laboratory examination (principal); D50.9 Iron deficiency anemia, unspecified; R19.5 Other fecal abnormalities; Z20.828 Contact with and (suspected) exposure to other viral communicable diseases
CPT/HCPCS: U0003-CS

== ENCOUNTER → 2020-03-11 | Day surgery (SDC) | payer MEDICARE, MEDICAID ==
[~2020-03-11] MED LIST changes: +IPRATRPIUM/ALBUTEROL 0.5/2.5MG 3 ML NEBU. NEB PRN; +IV NORMAL SALINE 1,000ML 1,000 ML IV SCH; +IV RINGERS SOLUTION,LACTATED 1,000 ML IV SCH; +LIDOCAINE 2% PF 5 ML VIAL. ONE; +MIDAZOLAM HCL PF 2 MG/2 ML VIAL. IV ONE; +ONDANSETRON PF 4 MG/2 ML VIAL. IV PRN; +PROPOFOL 10,000 MCG/ML (20ML) VIAL IV ONE
[2020-03-11 11:58] VITALS: BP 127/56
--- NOTE | 2020-03-14 15:09 | PATHOLOGY ---
[facility] Accession Number: [id number] . 01 Material submitted: . PART A: colon - BIOPSY DESCENDING COLON POLYP. Modifiers: descending PART B: cecum - BIOPSY CECUM POLYP . 01 Clinical history: . ANEMIA, HX POLYPS . 02 Diagnosis: A. Colon biopsy, desending colon polyp: - Tubular adenoma. . B. Colon biopsy, cecal polyp: - Tubular adenoma. (JPM:alexis; 03/14/2020) S 03/14/2020 1156 Local . 02 Comment: There is no high grade dysplasia or evidence of malignancy. (JPM:alexis; 03/14/2020) . 02 Electronically signed: . Cheng Busby MD, Pathologist NPI- [id number] . 01 Gross description: . A. Received in formalin labeled "Pallavi Cheng, descending colon polyp" is a fragment of delaney-brown soft tissue measuring 0.4 x 0.3 x 0.1 cm. The specimen is submitted entirely in A1. . B. Received in formalin labeled "Pallavi Cheng, BX polyp cecum" is a fragment of delaney-brown soft tissue measuring 0.4 x 0.3 x 0.1 cm. The specimen is submitted entirely in B1. ([facility]; 03/13/2020) SY/C 03/13/2020 1335 Local . 02 Pathologist provided ICD-10: D12.4, D12.0 . 02 CPT . 421906, [id number] Specimen Comment: A courtesy copy of this report has been sent to [phone], [phone] Specimen Comment: [id number] Specimen Comment: Report sent to / DR RODRIGUEZ Performed at: [address], [place], [place] [id number] MD Brett Salgado MD Phone: [phone] Performed at: [address] [id number] MD Cheng Busby MD Phone: [phone]
== END | disposition home or self-care (01) ==
LOC: SURG 09:23
PROVIDERS: ATTEND Internal Medicine
DX: R19.5 Other fecal abnormalities (principal); D12.4 Benign neoplasm of descending colon; D12.0 Benign neoplasm of cecum; K64.1 Second degree hemorrhoids; K57.30 Diverticulosis of large intestine without perforation or abscess without bleeding; K63.89 Other specified diseases of intestine; K31.89 Other diseases of stomach and duodenum; K74.60 Unspecified cirrhosis of liver; K44.9 Diaphragmatic hernia without obstruction or gangrene; E11.22 Type 2 diabetes mellitus with diabetic chronic kidney disease; N18.4 Chronic kidney disease, stage 4 (severe); I12.9 Hypertensive chronic kidney disease with stage 1 through stage 4 chronic kidney disease, or unspecified chronic kidney disease; M19.90 Unspecified osteoarthritis, unspecified site; D64.9 Anemia, unspecified; E03.9 Hypothyroidism, unspecified; Z95.1 Presence of aortocoronary bypass graft; Z98.890 Other specified postprocedural states; Z79.899 Other long term (current) drug therapy; Z79.82 Long term (current) use of aspirin; Z88.6 Allergy status to analgesic agent
CPT/HCPCS: 43235; 45380; 82947; J2001; J2704; J7030

== ENCOUNTER → 2021-01-26 | Outpatient (CLI) | payer MEDICARE, MEDICAID ==
[2020-03-11 11:58] VITALS: BP 127/56
[~2021-01-26] MED LIST changes: -CRAN500T2 PO; +CRAN500T3 PO; -IPRATRPIUM/ALBUTEROL 0.5/2.5MG 3 ML NEBU. NEB PRN; -ISOS60TA2 PO; +ISOS60TA55 PO; -IV NORMAL SALINE 1,000ML 1,000 ML IV SCH; -IV RINGERS SOLUTION,LACTATED 1,000 ML IV SCH; -LIDOCAINE 2% PF 5 ML VIAL. ONE; -MIDAZOLAM HCL PF 2 MG/2 ML VIAL. IV ONE; -ONDANSETRON PF 4 MG/2 ML VIAL. IV PRN; -PROPOFOL 10,000 MCG/ML (20ML) VIAL IV ONE
--- NOTE | 2021-01-26 16:46 | RAD ---
Exam Date: 01/26/2021 4:[address] HEAD/BRAIN WO Indication: Reason: FELL, BUMP ON POSTERIOR HEAD. HEAD PAIN / Spl. Instructions: / History: . TECHNIQUE: Head CT was performed without intravenous contrast. One or more of the following dose re duction techniques were utilized: *Automated exposure control (AEC) *Adjustment of mA and/or kV according to patient size *Use of iterative reconstruction technique *CT scan done according to ALARA, or ALARA/IMAGE GENTLY FINDINGS: The ventricles and sulci are prominent consistent with cerebral volume loss. Patchy ill-defined low attenuation areas in the subcortical and periventricular white matter bilaterally are consistent with microvascular disease. There is no evidence of acute intracranial hemorrhage, extra-axial collecti on, mass effect, midline shift, or acute territorial infarct. No lesion of the skull base or the calv arium is seen. The visualized paranasal sinuses, mastoid air cells and orbits are normal in appearanc e. IMPRESSION: No evidence for acute intracranial abnormality. Volume loss and microvascular disease. Electronically signed by: Juan Antonio Lyons MD (01/26/2021 4:43 PM) [facility]
== END ==
LOC: RAD 16:10
PROVIDERS: ATTEND Family Medicine
DX: I67.9 Cerebrovascular disease, unspecified (principal); R51.9 Headache, unspecified
CPT/HCPCS: 70450